=== PATIENT | female | born 1955 | race Caucasian/White ===

== ENCOUNTER 2021-08-23 11:10 | Outpatient (CLI) | payer MEDICARE, MEDICAID, SELFPAY ==
[2021-08-23 12:11] LABS: Albumin Level 4.6 g/dL (3.5-5.1); Anion Gap 9 mmol/L (8-16); Blood Urea Nitrogen 27 mg/dL (7-17); Calcium 9.9 mg/dL (8.4-10.2); Carbon Dioxide 30 mmol/L (22-30); Chloride 102 mmol/L (98-107); Estimated Glomerular Filt Rate 45; Glucose 85 mg/dL (65-110); Phosphorus 3.7 mg/dL (2.5-4.5); Potassium 4.1 mmol/L (3.4-5.0); Sodium 141 mmol/L (137-145)
[2021-08-23 13:27] LABS: Creatinine Urine 116.1 mg/dL
[2021-08-23 14:59] LABS: Total Protein Urine Random < 5 mg/dL; Ur Ttl Prot Creatinine Ratio < 0.04 mg/mg (0-0.20)
== END 2021-08-23 11:11 | disposition home or self-care (01) ==
LOC: ANHLAB 11:15
PROVIDERS: PCP Internal Medicine; Visit Provider Internal Medicine Nephrology
DX: N18.31 Chronic kidney disease, stage 3a (principal)
CPT/HCPCS: 36415; 80069; 82570; 84156

== ENCOUNTER 2022-01-31 18:02 | Observation (INO) | payer MEDICARE, MEDICAID, SELFPAY ==
[2022-01-31] VITALS (18 sets, daily range): BP systolic 92–130; BP diastolic 52–71; PULSE 74–90; RESP 14–18; TEMP 36.6; O2SAT 93–97
--- NOTE | ~2022-01-31 | CT_ITS ---
EXAMINATION: CT BRAIN W/O DATE: 02/01/2022 03:57 INDICATION: Status post fall. Head injury. TECHNIQUE: Computed tomography (CT) of the head was performed without intravenous contrast. The dose- length product was 681.00 mGy-cm. Automated exposure control and iterative reconstruction technique w ere employed. COMPARISON: No prior studies for comparison. FINDINGS: Normal brain parenchymal volume for age. Normal xavier-white differentiation. No acute intrac ranial hemorrhage, infarction, mass or mass effect. There are scattered mild periventricular and subc ortical white matter changes, most likely related to small vessel ischemic disease (microangiopathy). No ventriculomegaly or midline shift. Midline sagittal images demonstrate a normal corpus callosum, c raniovertebral junction and sella turcica. Basilar cisterns are patent. Paranasal sinuses and mastoids are pneumatized. No depressed skull fractures. There is rightward nasa l septal deviation. IMPRESSION: 1. No acute intracranial abnormality. Reviewed, dictated and finalized at location A.
--- NOTE | ~2022-01-31 | CT_ITS ---
EXAMINATION: CT abdomen pelvis wo con EXAM DATE: 01/31/2022 19:39 INDICATION: Diffuse abdominal pain. TECHNIQUE: Spiral CT of the abdomen and pelvis was performed without contrast. Axial, coronal and s agittal images of the abdomen and pelvis were reviewed. The dose-length product (DLP) for this exami nation was 1042.76 mGy-cm. The exposure was tailored according to patient size (auto mA exposure con trol), and iterative reconstruction (ASIR) was used as additional dose reduction technique. There is no prior study for comparison. FINDINGS: The liver, spleen, adrenal glands and pancreas are unremarkable. Gallbladder is unremarkab le. No biliary obstruction. There is no nephrolithiasis or hydronephrosis. The uterus is not iden tified and has likely been surgically resected. The bladder is unremarkable. There is no retroperit moon or pelvic lymphadenopathy. There is mild scattered arteriosclerotic disease. The appendix is normal. The stomach and small bowel are unremarkable. There is mild scattered coloni c diverticulosis. There is no adjacent inflammatory change to suggest diverticulitis. There is expec hayley amount of colonic stool. No free intraperitoneal gas. The heart is normal in size. There are no pericardial or pleural effusions. The lung bases are unremarkable. T10, L2 hemangiomas. IMPRESSION: 1. No acute intra-abdominal findings. 2. Mild scattered colonic diverticulosis. Reviewed, dictated and finalized at location G.
--- NOTE | ~2022-01-31 | CT_ITS ---
EXAMINATION: CT cervical spine wo con DATE: 02/01/2022 05:56 INDICATION: Neck pain after fall TECHNIQUE: Computed tomography (CT) of the cervical spine was performed without intravenous contrast. The dose-length product was 415 mGy-cm. Automated exposure control and iterative reconstruction tech nique were employed. COMPARISON: None FINDINGS: There is degenerative disc disease at C5-6 and C6-7. No acute fracture, subluxation or disl ocation. Vertebral body heights are maintained. Lung apices are normal. Craniovertebral junction is n ormal. Odontoid process is normal. Skull base within normal limits. No significant paraspinal soft ti ssue abnormality. IMPRESSION: 1. No acute abnormality of the cervical spine. Reviewed, dictated and finalized at location A.
[2022-01-31 18:35] LABS: Basophils Percent Auto 0.5 % (0.2-1.2); Eosinophils Absolute Auto 0.1 K/mm3 (0-0.3); Hematocrit 43.7 % (37.0-47.0); Hemoglobin 14.1 g/dL (12.0-15.0); Immature Granulocyte Absolute 0.02 K/mm3 (0.00-0.031); Immature Granulocyte Percent A 0.3 % (0-0.5); Lymphocytes Absolute Auto 1.59 K/mm3 (0.9-3.2); Lymphocytes Percent Auto 24.5 % (18.3-44.2); Mean Corpuscular HGB Conc 32.3 g/dl (32-36); Mean Corpuscular Hemoglobin 28.3 pg (26-34); Mean Corpuscular Volume 87.6 fl (80-100); Mean Platelet Volume 10.9 fl (7.4-10.4); Monocytes Absolute Auto 1.2 K/mm3 (0.1-0.6); Monocytes Percent Auto 18.1 % (2.6-8.5); Neutrophils Absolute Auto 3.5 K/mm3 (1.3-6.7); Neutrophils Percent Auto 54.6 % (45.5-73.1); Platelet Count Result 359 k/mm3 (150-375); Red Blood Count 4.99 M/mm3 (4.2-5.4); Red Cell Distribution Width 13.4 % (11.5-14.5); White Blood Count 6.5 K/mm3 (4.5-10.0)
[2022-01-31 18:45] LABS: Alanine Aminotransferase 32 U/L (4-35); Albumin Level 4.5 g/dL (3.5-5.1); Alkaline Phosphatase 53 U/L (38-126); Anion Gap 13 mmol/L (8-16); Aspartate Amino Transferase 59 U/L (14-36); Bilirubin,Total 0.5 mg/dL (0.2-1.3); Blood Urea Nitrogen 45 mg/dL (7-17); Calcium 8.9 mg/dL (8.4-10.2); Carbon Dioxide 25 mmol/L (22-30); Chloride 96 mmol/L (98-107); Estimated Glomerular Filt Rate 11; Glucose 116 mg/dL (65-110); Lipase 97 U/L (23-300); Potassium 3.9 mmol/L (3.4-5.0); Sodium 134 mmol/L (137-145)
--- NOTE | 2022-01-31 19:10 | PC.NURSE ---
Assuming care of pt.
--- NOTE | 2022-01-31 19:25 | ED.GENADULT ---
HPI - General Adult General Chief complaint: Nausea/Vomiting/Diarrhea Stated complaint: n/v/d Time Seen by Provider: 01/31/22 18:47 Source: patient and family Mode of arrival: ambulatory Limitations: no limitations History of Present Illness HPI narrative: Patient is 66 years old white female presents with nausea, vomiting, diarrhea and diffuse abdominal cramps, shaking, dizzy, hot flashes for the last 5 days. History of diabetes, hypertension, hyperlipidemia, asthma, stage III kidney failure, DNR, ovarian cyst surgery. Quit smoking 4 months ago, does not drink or uses drugs. Patient denies any fever, chest pain, shortness of breath, back pain, headache. Patient reports vomiting on average 3 episodes a day, diarrhea is all day long for the last 5 days Of watery stool. Related Data Home Medications Medication Instructions Recorded Confirmed atenolol 50 mg PO DAILY 01/31/22 atorvastatin 40 mg PO HS 01/31/22 carvedilol 12.5 mg PO BID 01/31/22 chlorthalidone 25 mg PO DAILY 01/31/22 ciprofloxacin HCl [Cipro] 500 mg PO Q12H 01/31/22 duloxetine 60 mg PO [id number] 01/31/22 fenofibrate 160 mg PO DAILY 01/31/22 furosemide [Lasix] 40 mg PO DAILY 01/31/22 lisinopril 20 mg PO DAILY 01/31/22 metformin 500 mg PO DAILY 01/31/22 omeprazole 20 mg PO DAILY 01/31/22 tizanidine 2 mg PO TID 01/31/22 Allergies Allergy/AdvReac Type Severity Reaction Status Date / Time No Known Allergies Allergy Verified 01/31/22 18:58 Review of Systems Review of Systems: CONSTITUTIONAL: Denies fever, chills, or sweats. EYES: Denies visual changes, redness, or discharge. ENT: Denies rhinorrhea, congestion, sore throat, or otalgia. CARDIOVASCULAR: Denies chest pain, palpitations, or edema. RESPIRATORY: Denies cough or dyspnea. GASTROINTESTINAL: Denies abdominal pain, nausea, vomiting, or diarrhea. GENITOURINARY: Denies dysuria or hematuria. SKIN: Denies rash or itching. MUSCULOSKELETAL: Denies back pain, joint pain, or myalgia. NEUROLOGIC: Denies headache, numbness, or weakness. PSYCHIATRIC: Denies anxiety or depression. Exam Narrative: General appearance: Well-developed, well-nourished Skin: Normal color Head: Normocephalic, nontraumatic Eyes: Clear conjunctiva ENT: Oropharynx normal, ears normal, nose normal Neck: Supple, nontender Chest and respiratory: Airway patent, no respiratory distress, no accessory muscle use Heart: Regular rate/rhythm Abdomen: Soft, diffuse tenderness, no guarding or rebound, no organomegaly, normal bowel sounds Vascular: Normal peripheral pulses, normal capillary refill. Musculoskeletal: Normal range of motion, nontender back Neurologic: Alert and oriented ?3, EQUIPMENT HIRE MANAGER is normal as tested, no gross motor deficit Course Vital Signs Vital signs: Vital Signs Temperature 36.6 C 01/31/22 18:10 Pulse Rate 90 01/31/22 18:10 Respiratory Rate 14 01/31/22 18:10 Blood Pressure 109/66 01/31/22 18:10 Pulse Oximetry 97 01/31/22 18:10 Temperature 36.6 C 01/31/22 18:10 Pulse Rate 75 01/31/22 21:04 Respiratory Rate 18 01/31/22 19:31 Blood Pressure 108/59 L 01/31/22 21:04 Pulse Oximetry 96 01/31/22 19:31 Medical Decision Making Vital Signs Vital Signs: Vital Signs Temperature 36.6 C 01/31/22 18:10 Pulse Rate 90 01/31/22 18:10 Respiratory Rate 14 01/31/22 18:10 Blood Pressure 109/66 01/31/22 18:10 Pulse Oximetry 97 01/31/22 18:10 Temperature 36.6 C 01/31/22 18:10 Pulse Rate 75 01/31/22 21:04 Respiratory Rate 18 01/31/22 19:31 Blood Pressure 108/59 L 01/31/22 21:04 Pulse Oximetry 96 01/31/22 19:31 Lab Data Result diagrams: 01/31/22 18:17 01/31/22 18:17
[2022-01-31] MEDS: ONDANSETRON INJ 4 MG/2 ML VIAL 8 MG IV PUSH (19:47)
[2022-01-31] MEDS: MORPHINE SULFATE (*CRX) 4 MG/ML INJ IV PUSH (19:47)
[2022-01-31] MEDS: SODIUM CHLORIDE 0.9% IV 1,000 ML 999 ML IV CONT ×2 (19:47→21:04)
[2022-01-31 22:04] LABS: SARS-CoV-2 RNA PCR Negative
[2022-01-31 22:52] LABS: Add Urine Microscopic? YES; Appearance Urine Cloudy (Clear); Bacteria Urine Trace /hpf; Bilirubin Urine Negative (Negative); Blood Urine 1+ (Negative); Color Urine Yellow (Yellow); Glucose Urine UA Negative (Negative); Ketones Urine Negative (Negative); Leukocyte Esterase Ur Negative LEU/UL (Negative); Mucus Urine Rare /lpf; Nitrate Urine Negative (Negative); Protein Urine Negative (Negative); RBC Urine 0-2 /hpf (0-2); Specific Grav Ur 1.008 (1.001-1.035); Squamous Epithelial Cell Urine Few /hpf (Few); Urobilinogen Urine Negative mg/dL (<2.0); WBC Urine 0-3 /hpf
[2022-01-31] MEDS: SODIUM CHLORIDE 0.9% IV 1,000 ML 150 ML IV CONT (23:00)
[2022-01-31 23:40] LABS: Glucose Point of Care 89 mg/dl (65-105)
[2022-02-01] VITALS (9 sets, daily range): BP systolic 98–148; BP diastolic 48–86; PULSE 70–93; RESP 16–20; TEMP 35.7–36.4; O2SAT 92–98; BMI 35.5
--- NOTE | 2022-02-01 00:40 | ADMGEN ---
This patient, Madeline Puentes, was admitted to [facility] Surg Room 321-02. Patient/family oriented to hospital policies and general routines including ID bracelet, bed and alarms, visiting hours, pain management, procedures, bathroom and other care routines, personal items, smoking policy, room service/diet, and visiting hours. Information on how to activate the Rapid Response Team has been discussed. Patient/Family are encouraged to report perceived risks to care and to ask questions if they do not understand what they are told or what they should do.
--- NOTE | 2022-02-01 01:38 | PM.IMHP ---
H&P: HPI History of Present Illness Date/Time: 02/01/22 01:38 Chief Complaint: Nausea vomiting diarrhea Narrative: this is a 66-year-old female who presents to the ED with ongoing nausea vomiting and diarrhea over the past 5 days. She has underlying history of diabetes, hypertension, hyperlipidemia, asthma, stage 3 kidney disease. He denies any recent antibiotic use. The patient reports average 3 episodes per day loose watery stool over the past 5 days. There is ongoing nausea and from lying in her abdomen since then. She denies any sick contacts or any new unusual food intake recently. She has not been out of the country recently as well. She denies any blood in her stool. She states and he thinks that she eats she had to run to the bathroom after that. She denies any previous history of diarrheal illness in the past. No fever chills. No shortness of breath or chest pain. She was noted to have acute renal failure with creatinine of 4 on evaluation and hence getting admitted for further evaluation and management. She was also had borderline blood pressure which improved after IV hydration. She states to me that she is already feeling a little better. She has not had any bowel movement since he has been to the hospital. Review of Systems Review of Systems: - CONSTITUTIONAL: Denies weight loss, fever and chills. - HEENT: Denies changes in vision and hearing - RESPIRATORY: Denies SOB and cough. - CV: Denies palpitations and CP. - GI: Reports abdominal pain, nausea, vomiting and diarrhea. - : Denies dysuria and urinary frequency. - MSK: Denies myalgia and joint pain. - SKIN: Denies rash and pruritus. - NEUROLOGICAL: Denies headache and syncope. - PSYCHIATRIC: Denies recent changes in mood. Denies anxiety and depression. All systems reviewed & are unremarkable except as noted in HPI and below Constitutional: Constitutional: Reports fatigue and Reports weakness Neurologic: Reports weakness Endocrine: Endocrine: Reports fatigue PMFSH Social History Social History Smoking status: Former smoker Tobacco type: cigarettes Second hand tobacco smoke exposure: No Alcohol intake: never Substance use: never Spiritual care concerns: No Meds Home Medications and Allergies Home Medications Medication Instructions Recorded Confirmed Type atenolol 50 mg PO DAILY 01/31/22 History atorvastatin 40 mg PO HS 01/31/22 History carvedilol 12.5 mg PO BID 01/31/22 History chlorthalidone 25 mg PO DAILY 01/31/22 History duloxetine 60 mg PO [id number] 01/31/22 History fenofibrate 160 mg PO DAILY 01/31/22 History furosemide [Lasix] 40 mg PO DAILY 01/31/22 History lisinopril 20 mg PO DAILY 01/31/22 History metformin 500 mg PO DAILY 01/31/22 History omeprazole 20 mg PO DAILY 01/31/22 History tizanidine 2 mg PO TID 01/31/22 History Allergies Allergy/AdvReac Type Severity Reaction Status Date / Time No Known Allergies Allergy Verified 02/01/22 00:47 Vital Signs Vital Signs - 24 hr 01/31/22 18:10 01/31/22 18:49 01/31/22 18:51 Temperature 97.9 F Pulse Rate 90 90 Respiratory Rate 14 14 Blood Pressure 109/66 92/68 L Pulse Oximetry 97 95 01/31/22 18:56 01/31/22 19:31 01/31/22 20:06 Temperature Pulse Rate 85 87 Respiratory Rate 16 18 Blood Pressure 92/68 L 130/71 Pulse Oximetry 96 93 01/31/22 20:08 01/31/22 20:15 01/31/22 20:17 Temperature Pulse Rate Respiratory Rate Blood Pressure 119/54 L 103/63 Pulse Oximetry 96 94 94 01/31/22 20:30 01/31/22 20:31 01/31/22 21:00 Temperature Pulse Rate 78 Respiratory Rate Blood Pressure 115/54 L 102/52 L Pulse Oximetry 93 93 01/31/22 21:02 01/31/22 21:04 01/31/22 21:29 Temperature Pulse Rate 74 75 Respiratory Rate Blood Pressure 103/57 L 108/59 L Pulse Oximetry 96 01/31/22 22:22 01/31/22 22:30 01/31/22 23:10 Temperature P
[2022-02-01 02:38] LABS: Creatine Kinase 119 U/L (30-135); Lactic Acid Reflex 0.5 mmol/L (0.7-2.1)
[2022-02-01 06:48] LABS: Anion Gap 8 mmol/L (8-16); Blood Urea Nitrogen 41 mg/dL (7-17); Calcium 8.1 mg/dL (8.4-10.2); Carbon Dioxide 24 mmol/L (22-30); Chloride 103 mmol/L (98-107); Estimated CRCL calculation 20 ml/min; Estimated Glomerular Filt Rate 18; Glucose 84 mg/dL (65-110); Potassium 3.3 mmol/L (3.4-5.0); Sodium 135 mmol/L (137-145)
[2022-02-01 07:58] LABS: Glucose Point of Care 87 mg/dl (65-105)
[2022-02-01] MEDS: SODIUM CHLORIDE 0.9% IV 1,000 ML 150 ML IV CONT ×2 (08:06→14:12)
[2022-02-01] MEDS: FENOFIBRATE 160 MG TABLET PO (08:41)
[2022-02-01] MEDS: carvediloL 12.5 MG TABLET PO (08:41)
[2022-02-01] MEDS: TIZANIDINE HCL 2 MG TABLET PO (08:41)
[2022-02-01] MEDS: PANTOPRAZOLE 40 MG TABLET PO (08:41)
[2022-02-01] MEDS: atenoloL 50 MG TABLET PO (08:42)
[2022-02-01] MEDS: HEPARIN SODIUM 5,000 UNITS/ML VIAL 5000 UNITS SUB-Q ×3 (08:42→22:25)
--- NOTE | 2022-02-01 11:07 | PCCCNOTE ---
On 02/01/22, the student, [Twyla West ], provided care and [email or web address]. I have reviewed the student's documentation and agree with the findings.
[2022-02-01 11:25] LABS: Glucose Point of Care 100 mg/dl (65-105)
[2022-02-01] MEDS: SODIUM CHLORIDE 0.9% IV 1,000 ML 999 ML IV CONT (11:35)
--- NOTE | 2022-02-01 12:46 | PM.IMPN ---
Progress Note: A&P Assessment and Plan (1) Gastroenteritis: Code(s): K52.9 - Noninfective gastroenteritis and colitis, unspecified Status: Acute (2) Acute dehydration: Code(s): E86.0 - Dehydration Status: Acute (3) RAVEN (acute kidney injury): Code(s): N17.9 - Acute kidney failure, unspecified Status: Acute (4) Hypertension: Code(s): I10 - Essential (primary) hypertension Status: Acute (5) Hyperlipidemia: Code(s): E78.5 - Hyperlipidemia, unspecified Status: Acute (6) Diabetes mellitus type 2 with complications: Code(s): E11.8 - Type 2 diabetes mellitus with unspecified complications Status: Acute (7) Chronic kidney disease, stage 3: Code(s): N18.30 - Chronic kidney disease, stage 3 unspecified Status: Acute (8) Asthma: Code(s): J45.909 - Unspecified asthma, uncomplicated Status: Acute Additional Plan acute gastroenteritis with nausea vomiting diarrhea and abdominal pain. CT abdomen is negative lipase is normal. COVID test negative. Stool studies. Likely viral will continue with IV fluid hydration and supportive treatment for now. No antibiotics currently WBC count is normal Acute dehydration with RAVEN and CKD stage 3 creatinine of 2 4. Continue IV hydration aggressively recheck levels in the morning Hypertension blood pressure low is will hold diuretics and her blood pressure medication. Diabetes mellitus type 2 hold metformin start SSI Accu-Cheks monitoring Asthma continue home medication Hyperlipidemia check CK level continue atorvastatin under CK level is elevated GERD on PPI will continue DVT prophylaxis placed on heparin subQ Code status do not resuscitate Anticipate more than 2 midnight. Admit inpatient 02/01/22: Pt.s RAVEN is improving with IVF, Creatinine decreased from 4.0 to 2.7 today. Stool studies still pending. WBC remains normal without any rise. Continuing to hold BP medication since she had hypotension. Stool studies pending, tolerating a clear liquid diet without difficulties, N/V/D, will advance to heart healthy. Will continue to monitor VS and labs. Subjective Date/time seen: 02/01/22 0850 This pt. was examined at the bedside in interval assessment today. She is noted to have no current complaints of N/V/D/CP/Dyspnea and She did reportedly fall out of bed last evening and had CT of head and C-spine which were both negative. She has been given IVF for correction of her RAVEN, and her renal function is improving. She has no current complaints, of abdominal pain, N/V and she has not had any diarrhea since being here. She has tolerated a clear liquid diet without difficulty, so her diet is being changed at this time to a heart healthy diet. Will add SSI. She did become hypotensive today, 70s/40s without any symptoms and she does not appear to have any acute infection. This was resolved with increased fluid bolus. Review of Systems Review of Systems: All systems reviewed & are unremarkable except as noted in HPI and below Exam Narrative: General appearance: Well-developed, well-nourished Skin: Normal color no rash Head: Normocephalic, nontraumatic Eyes: Clear conjunctiva ENT: Oropharynx normal, ears normal, nose normal Neck: Supple, nontender Chest and respiratory: Airway patent, no respiratory distress, no accessory muscle use Heart: Regular rate/rhythm Abdomen: Soft, diffuse tenderness, no guarding or rebound, no organomegaly, normal bowel sounds Vascular: Normal peripheral pulses, normal capillary refill. Musculoskeletal: Normal range of motion, nontender back Neurologic: Alert and oriented ?3, LAND INSPECTOR is normal as tested, no gross motor deficit
--- NOTE | 2022-02-01 13:30 | PC.NURSE ---
orthostatic bp performed this shift r.t soft bp, supine 71/46, sitting 116/86, and 99/64.
[2022-02-01 13:39] LABS: Hemoglobin A1C 5.7 % (<5.7)
--- NOTE | 2022-02-01 14:11 | PC.NURSE ---
holding cardveilol and tizanidine r/t soft bp, provider Dai sanon.
--- NOTE | 2022-02-01 15:36 | PC.NURSE ---
No diarrhea this shift, no stool specimen available for collection.
[2022-02-01 16:38] LABS: Glucose Point of Care 99 mg/dl (65-105)
[2022-02-01] MEDS: DULoxetine HCL 60 MG CAPSULE.DR PO (17:06)
[2022-02-01] MEDS: ATORVASTATIN 40 MG TABLET PO (20:22)
[2022-02-01 20:32] LABS: Glucose Point of Care 111 mg/dl (65-105)
[2022-02-01] MEDS: HYDROcodone/acetaminophen (*CRX) 5-325 MG TABLET 1 TAB PO (22:22)
[2022-02-02] MEDS: SODIUM CHLORIDE 0.9% IV 1,000 ML 150 ML IV CONT ×2 (01:15→09:44)
[2022-02-02] MEDS: HYDROcodone/acetaminophen (*CRX) 5-325 MG TABLET 1 TAB PO ×2 (04:32→12:14)
[2022-02-02] MEDS: HEPARIN SODIUM 5,000 UNITS/ML VIAL 5000 UNITS SUB-Q ×2 (05:35→13:33)
[2022-02-02 05:37] VITALS: BP 122/52; PULSE 85; RESP 16; TEMP 36.1; O2SAT 94
[2022-02-02 06:23] LABS: Basophils Percent Auto 0.8 % (0.2-1.2); Eosinophils Absolute Auto 0.2 K/mm3 (0-0.3); Eosinophils Percent Auto 4.3 % (0-4.4); Hematocrit 39.4 % (37.0-47.0); Hemoglobin 11.7 g/dL (12.0-15.0); Immature Granulocyte Absolute 0.01 K/mm3 (0.00-0.031); Immature Granulocyte Percent A 0.2 % (0-0.5); Lymphocytes Absolute Auto 2.46 K/mm3 (0.9-3.2); Lymphocytes Percent Auto 47.6 % (18.3-44.2); Mean Corpuscular HGB Conc 29.7 g/dl (32-36); Mean Corpuscular Hemoglobin 28.3 pg (26-34); Mean Corpuscular Volume 95.4 fl (80-100); Mean Platelet Volume 11.6 fl (7.4-10.4); Monocytes Absolute Auto 0.4 K/mm3 (0.1-0.6); Monocytes Percent Auto 8.1 % (2.6-8.5); Platelet Count Result 235 k/mm3 (150-375); Red Blood Count 4.13 M/mm3 (4.2-5.4); Red Cell Distribution Width 13.6 % (11.5-14.5); White Blood Count 5.2 K/mm3 (4.5-10.0)
[2022-02-02 08:02] LABS: Glucose Point of Care 77 mg/dl (65-105)
[2022-02-02 08:25] VITALS: O2SAT 93
[2022-02-02] MEDS: TIZANIDINE HCL 2 MG TABLET PO ×2 (08:37→13:31)
[2022-02-02 08:38] VITALS: PULSE 70
[2022-02-02] MEDS: atenoloL 50 MG TABLET PO (08:38)
[2022-02-02] MEDS: PANTOPRAZOLE 40 MG TABLET PO (08:38)
[2022-02-02 08:39] VITALS: PULSE 70
[2022-02-02] MEDS: FENOFIBRATE 160 MG TABLET PO (08:39)
[2022-02-02] MEDS: carvediloL 12.5 MG TABLET PO (08:39)
[2022-02-02 08:46] LABS: Anion Gap 6 mmol/L (8-16); Blood Urea Nitrogen 24 mg/dL (7-17); Calcium 8.1 mg/dL (8.4-10.2); Carbon Dioxide 25 mmol/L (22-30); Chloride 109 mmol/L (98-107); Estimated CRCL calculation 33 ml/min; Estimated Glomerular Filt Rate 32; Glucose 81 mg/dL (65-110); Potassium 3.9 mmol/L (3.4-5.0); Sodium 140 mmol/L (137-145)
[2022-02-02 11:23] LABS: Glucose Point of Care 100 mg/dl (65-105)
--- NOTE | 2022-02-02 14:21 | PM.DS ---
DS: Admitting Diagnosis Discharge Date 02/02/2022 Admitting Diagnosis gastroenteritis DS: Discharge Diagnosis Discharge Diagnosis (1) Gastroenteritis: Code(s): K52.9 - Noninfective gastroenteritis and colitis, unspecified Status: Acute Assessment and Plan: Presented with nausea, vomiting, diarrhea, and abdominal cramping ongoing for 5 days. Stool cultures negative CT a/p showed no acute intraabdominal findings Kane to be viral in nature Pt had symptomatic improvement following IV hydration and was able to advance to heart healthy diet (2) Acute dehydration: Code(s): E86.0 - Dehydration Status: Acute Assessment and Plan: Secondary to above Resolved following IV fluid rehydration (3) Acute on chronic kidney failure: Code(s): N17.9 - Acute kidney failure, unspecified; N18.9 - Chronic kidney disease, unspecified Status: Acute Assessment and Plan: Pt with history of CKD stage 3 presented with RAVEN secondary to dehydration Creatinine 4.0 on presentation Renal function returned to baseline with fluids. Creatinine 1.6 at time of discharge Follow up with PCP in 1 week for further monitoring. Chlorthalidone and lisinopril held until follow up (4) Hypertension: Code(s): I10 - Essential (primary) hypertension Status: Acute Assessment and Plan: Blood pressures reviewed and were typically on the lower end, 100-120s systolic. Chlorthalidone and lisinopril held as above Monitor BP at home and follow up with PCP in 1 week (5) Diabetes mellitus type 2 with complications: Code(s): E11.8 - Type 2 diabetes mellitus with unspecified complications Status: Acute Assessment and Plan: A1c is 5.7 Metformin held during admission but resumed on discharge as GFR >30 DS: Summary Hospital Course Hospital Course: Date of admission 01/31/22 Date of discharge: 02/02/2022 Madeline Puentes is a 67-year-old female with history of CKD stage 3, hypertension, hyperlipidemia, asthma, and type 2 diabetes mellitus who presented to the emergency department on 01/31/2022 with complaints of nausea, vomiting, diarrhea, abdominal cramping ongoing for 5 days. On presentation to the ED, her vital signs were stable, she was afebrile, found to have acute kidney injury with creatinine 4.0, and CT of the abdomen/pelvis showed no acute findings. She was admitted to the hospitalist service for further evaluation and management. Please see above for further details. Her symptoms resolved with rehydration and supportive care. She was feeling much improved and requested discharge home. Given her overall improvement, she was determined to no longer require inpatient care and was felt to be stable for discharge. We discussed worrisome signs and symptoms for which to return and she was educated on her medications. She was discharged in hemodynamically stable condition on 02/02/2022. Status at Discharge Functional status at discharge: independent ambulation Overall status at discharge: patient is progressing back to baseline Time Spent with Patient Time attestation: Total time spent providing and/or coordinating discharge services: 40 minutes Time spent: Greater than 30 minutes Exam Narrative: General: obese, well-appearing 66 year-old female, sitting up in bed, comfortable, NARD Neuro: awake, alert and oriented x4, speech clear, no focal neuro deficits noted HEENMT: normocephalic, atraumatic, EOMI, sclerae anicteric, moist oral mucosa Respiratory: clear to auscultation bilaterally, nonlabored breathing Cardio: regular rate, regular rhythm with S1-S2 Abdomen: nondistended, normoactive bowel sounds, soft, nontender to palpation Extremities: no edema, erythema, or tenderness to palpation, DP pulses 2+ bilaterally Skin: no rashes or lesions, warm and dry Psych: appropriate mood and affect, judgment and insight intact DS: Data Data Completed and Pending L
--- NOTE | 2022-02-02 15:04 | PC.NURSE ---
On 02/02/22, the student, [Lilia Huffman ], provided care and completed [facility] documentation on this patient. I have reviewed the student's documentation and agree with the findings.
[2022-02-02 15:05] VITALS: BP 103/61; PULSE 71; RESP 16; TEMP 36.6; O2SAT 98
--- NOTE | 2022-02-07 12:58 | PC.NURSE ---
Michelle, office secretary, called patient about neck brace that got left at discharge. I verified in discharge instructions. Nothing noted about neck brace. Patient would like it to be thrown away.
== END 2022-02-02 15:42 | disposition home or self-care (01) ==
LOC: ANHED 20:59 → ANH3MEDSUR 22:46
PROVIDERS: Nurse Practitioner Adult Health; Admitting Provider Internal Medicine; Emergency Provider Emergency Medicine; Visit Provider Physician Assistant
DX: K52.9 Noninfective gastroenteritis and colitis, unspecified (principal); E86.0 Dehydration; N17.9 Acute kidney failure, unspecified; N18.30 Chronic kidney disease, stage 3 unspecified; I12.9 Hypertensive chronic kidney disease with stage 1 through stage 4 chronic kidney disease, or unspecified chronic kidney disease; E11.22 Type 2 diabetes mellitus with diabetic chronic kidney disease; E78.5 Hyperlipidemia, unspecified; J45.909 Unspecified asthma, uncomplicated; Z20.822 Contact with and (suspected) exposure to COVID-19; Z87.891 Personal history of nicotine dependence
CPT/HCPCS: 36415; 70450; 72125; 74176; 80048; 80053; 81001; 82550; 82948; 83036; 83605; 83690; 85025; 87045; 87427; 89055; 96361; 96372; 96374; 96375; 97161; 97165; 99285; A9270; C9803; G0378; J0131; J1644; J2270; J2405; J7030; L0140; U0003; U0005

== ENCOUNTER 2022-10-25 09:22 | Outpatient (CLI) | payer MEDICARE, MEDICAID, SELFPAY ==
--- NOTE | ~2022-10-25 | MM_ITS ---
EXAMINATION: MM screening [facility] BI w oscar HISTORY: Screening TECHNIQUE: Craniocaudal and mediolateral oblique 3-D tomosynthesis images were obtained and synthetic 2-D images were generated. CAD analysis was submitted and interpreted. COMPARISON: Comparison to multiple prior studies sequentially, with oldest reviewed study dated 08/10. BREAST PARENCHYMAL COMPOSITION: There are scattered areas of fibroglandular density. FINDINGS: The right breast is stable without evidence for malignancy. Stable architectural distortion in the upper outer quadrant of the left breast, consistent with previous lumpectomy. There are a few stable calcifications at the lumpectomy site. No suspicious calcifications, new masses or areas of a rchitectural distortion are identified. IMPRESSION: 1. No mammographic evidence of malignancy. 2. Recommend routine screening mammography in one year. BI-RADS Category 2: Benign finding(s). Reviewed, dictated and finalized at location B. RIAL INSPECTOR
== END 2022-10-25 09:23 | disposition home or self-care (01) ==
LOC: ANHIMG 09:24
PROVIDERS: PCP Internal Medicine; Visit Provider Physician Assistant
DX: Z12.31 Encounter for screening mammogram for malignant neoplasm of breast (principal)
CPT/HCPCS: 77063; 77067

== ENCOUNTER 2023-06-14 11:01 | Outpatient (CLI) | payer MEDICARE, MEDICAID, SELFPAY ==
[2023-06-14 12:44] LABS: Hemoglobin A1C 5.6 % (<5.7)
[2023-06-14 12:46] LABS: Alanine Aminotransferase 28 U/L (6-35); Albumin Level 4.3 g/dL (3.5-5.1); Alkaline Phosphatase 77 U/L (38-126); Anion Gap 5 mmol/L (8-16); Aspartate Amino Transferase 38 U/L (14-36); Bilirubin,Total 0.4 mg/dL (0.2-1.3); Blood Urea Nitrogen 23 mg/dL (7-17); Calcium 9.7 mg/dL (8.4-10.2); Carbon Dioxide 29 mmol/L (22-30); Chloride 103 mmol/L (98-107); Estimated Glomerular Filt Rate 55; Glucose 80 mg/dL (65-110); Potassium 4.6 mmol/L (3.4-5.0); Sodium 137 mmol/L (137-145)
[2023-06-14 12:59] LABS: Free T4 Free Thyroxine 1.07 ng/mL (0.78-2.19)
[2023-06-14 13:29] LABS: Creatinine Urine 71.6 mg/dL; MALB Creatinine Ratio 9.8 mg/g (0-30)
== END 2023-06-14 11:02 | disposition home or self-care (01) ==
LOC: ANHWCLAB 11:07
PROVIDERS: PCP Internal Medicine; Visit Provider Internal Medicine
DX: R63.5 Abnormal weight gain (principal); N18.30 Chronic kidney disease, stage 3 unspecified; E11.8 Type 2 diabetes mellitus with unspecified complications
CPT/HCPCS: 36415; 80053; 82043; 83036; 84439; 84443

== ENCOUNTER 2023-06-17 11:12 | Outpatient (NON) | payer MEDICARE, MEDICAID, SELFPAY ==
[2023-06-27 17:52] LABS: Cortisol, Saliva 0.03 mcg/dL
[2023-06-27 18:10] LABS: Cortisol, Saliva 0.05 mcg/dL
== END 2023-06-17 11:13 | disposition home or self-care (01) ==
PROVIDERS: PCP Internal Medicine; Visit Provider Internal Medicine
DX: R63.5 Abnormal weight gain (principal)
CPT/HCPCS: 82530

== ENCOUNTER 2023-08-29 11:25 | Outpatient (CLI) | payer MEDICARE, MEDICAID, SELFPAY ==
--- NOTE | ~2023-08-29 | MM_ITS ---
EXAMINATION: MM diagnostic [facility] BI w oscar HISTORY: History of left breast cancer status post lumpectomy TECHNIQUE: Additional 3-D tomosynthesis images of the right breast were performed and synthetic 2-D i mages were generated. CAD analysis was submitted and interpreted. COMPARISON: Comparison to multiple prior studies sequentially, with oldest reviewed study dated 08/11. BREAST PARENCHYMAL COMPOSITION: Breast composed of scattered areas of fibroglandular density FINDINGS: The breasts are stable. Stable architectural distortion in the upper outer quadrant of the left breast, consistent with previous lumpectomy site. There are no new masses, calcifications or arc hitectural distortion in either breast to suggest malignancy. IMPRESSION: 1. Stable bilateral mammogram without evidence for malignancy. 2. Routine yearly screening mammogram and regular clinical breast examination are recommended. BI-RADS Category 2: Benign finding(s). Reviewed, dictated and finalized at location A. IMPRESSION: 1. Stable bilateral mammogram without evidence for malignancy. 2. Routine yearly screening mammogram and regular clinical breast examination a re recommended. BI-RADS Category 2: Benign finding(s).
== END 2023-08-29 11:26 | disposition home or self-care (01) ==
LOC: ANHIMG 11:27
PROVIDERS: PCP Internal Medicine; Visit Provider Emergency Medicine
DX: N63.20 Unspecified lump in the left breast, unspecified quadrant (principal); R92.8 Other abnormal and inconclusive findings on diagnostic imaging of breast
CPT/HCPCS: 77062; 77066; G0279

== ENCOUNTER 2025-01-07 13:20 | Outpatient (CLI) | payer MEDICARE, MEDICAID, SELFPAY ==
[2025-01-07 14:23] LABS: Influenza A QL RT-PCR Negative (Negative); Influenza B QL RT-PCR Negative (Negative); RSV RNA, RT-PCR Negative (Negative); SARS-CoV-2 RNA PCR Negative (Negative)
--- OUTSIDE RECORDS SUMMARY | 2025-01-07 15:05 | XMS_ITS | Clinical Summary ---
Author Organization [employer] [facility] [employer] [facility] Address [address] [facility] [address] [place] [address] Phone Care Team Providers Care Litharge Supervisor Name Role Phone Moo Escamilla MD Primary Care Provider Allergies No known active allergies Medications * This document contains information received from the source organization and may not represent a complete record from that organization. aspirin 81 MG chewable tablet Chew 81 mg in the morning. Active atorvastatin (LIPITOR) 40 MG tablet Take 40 mg by mouth in the morning. 9 Active DULoxetine HCl 30 MG Capsule Delayed Release Sprinkle Take 1 capsule by mouth 1 (one) time each day 1 Active fenofibrate (TRIGLIDE) 160 MG tablet Take 160 mg by mouth in the morning. 9 Active HYDROcodone-ac etaminophen (NORCO) 5-325 MG per tablet TAKE ONE TABLET BY MOUTH TWICE DAILY NEEDED FOR PAIN 8 Active lisinopril 20 MG tablet Take 20 mg by mouth 1 (one) time each day Active cyanocobalamin (VITAMIN B-12) 1000 MCG tablet Take 1,000 mcg by mouth in the morning and 1,000 mcg in the evening. Active carvedilol (COREG) 12.5 MG tablet Take 1 tablet (12.5 mg total) by mouth in the morning and 1 tablet (12.5 mg total) in the evening. Take with meals. 180 tablet 1 2 04/01/20 29 Active furosemide (LASIX) 20 MG tablet Take 1 tablet (20 mg total) by mouth 1 (one) time each day 90 tablet 1 2 Active metFORMIN XR (GLUCOPHAGE-XR ) 500 MG 24 hr tablet Take 2 tablets (1,000 mg total) by mouth 1 (one) time each day with dinner 180 tablet 2 04/01/20 29 Active escitalopram (LEXAPRO) 10 MG tablet Take 10 mg by mouth 1 (one) time each day in the morning Active Tirzepatide (Mounjaro) 10 MG/0.5ML solution auto-injector Inject 10 Units under the skin per week Active Cholecalcifero l (Vitamin D3) 50 MCG (1999 UT) tablet TAKE 1 TABLET BY MOUTH 1 TIME EACH DAY 90 tablet 1 5 Active Cholecalcifero l (Vitamin D3) 50 MCG (1999 UT) tablet TAKE 1 TABLET BY MOUTH 1 TIME EACH DAY 90 tablet 1 4 12/23/19 25 Discontinued Active Problems Problem Noted Date Diagnosed Date Vitamin D deficiency 04/01/2024 Chronic kidney disease, stage 2 (mild) 3 Chronic depression 08/01/2022 Hypercalcemia 03/07/2022 Mixed hyperlipidemia 12/07/2021 Type 2 diabetes mellitus without complication Acquired hypothyroidism 05/04/2021 Stage 3a chronic kidney disease 01/21/2021 Obstructive sleep apnea syndrome 09/28/2020 Dyspnea 09/28/2020 Essential hypertension 06/05/2019 Encounters Date Type Department Care Team Description 12/22/2024 Refill [facility], [facility] [address] [phone] Franklin Abreu MD 11/25/2024 11:30 AM HULL GRINDER Office Visit [facility], [facility] [address] [phone] Franklin Abreu MD Stage 3a chronic kidney disease (HCC) (Primary Dx); Essential hypertension; Type 2 diabetes mellitus without complication (HCC); Mixed hyperlipidemia; Chronic depression; Vitamin D deficiency, not otherwise specified; Acquired hypothyroidism 11/25/2024 Refill [place], [facility] [address] [phone] Perla Connelly CMA 11/20/2024 Orders Only [facility], [place] [id number] [facility] [address] [place] [phone] Franklin Abreu MD 11/13/2024 Office Communication [facility], [facility] [address] [place] [address] [address] [place] [address] Franklin Abreu MD from Last 3 Months Immunizations Name Administration Dates Next Due Influenza Split 08/08/2019 Influenza TIV (IM) 07/13/2019 Influenza, Unspecified 09/07/2021,2019,08/08/2019,12/19/2018 ,08/28/2017,08/23/2016,08/31/2015, 4,08/19/2014 Moderna SARS-COV-2 01/25/2021 Pneumococcal Conjugate 13-Valent 09/13/2015 Shingrix 11/26/2020,09/20/2020,08/11/2020 Family History Relation Status Comments Father Mother Social History Tobacco Use Types Packs/Day Years Used Date Smoking Tobacco: Former Cigarettes Smokeless Tobacco: Current Tobacco Cessation:Ready to Q uit: Not Asked; Counseling Given: Not Answered Alcohol Use Standard Drinks/Week Comments Never 0 (1 standard drink = 0.6 oz pur e alcohol) Comments Unknown Sex and Gender Information Value Date Recorded Sex Assigned at Not on file Legal Sex Female 2:54 PM EST Gender Identity Not on file Sexual Orientation Not on file Last Filed Vital Signs Vital Sign Reading Time Taken Comments Blood Pressure 140/80 11/25/2024 11:46 AM HULL GRINDER Pulse 66 11/25/2024 11:46 AM HULL GRINDER Temperature 36.1 C (97 F) 11/25/2024 11:46 AM HULL GRINDER Respiratory Rate 18 11/25/2024 11:46 AM HULL GRINDER Oxygen Saturation 97% 11/25/2024 11:46 AM HULL GRINDER Inhaled Oxygen Concentration - - Weight 74.8 kg (165 lb) 11/25/2024 11:46 AM HULL GRINDER Height 157.5 cm (5' 2 ) 04/01/2024 10:14 AM CDT Body Mass Index 30.18 04/01/2024 10:14 AM CDT Plan of Treatment Upcoming Encounters Date Type Department Care Team (Late st Contact Info) Description 05/26/2025 10:30 AM CDT Office Visit [facility], [facility] [address] [place], [place] [address] [place] [phone] Franklin Abreu MD [address] [place] [address] Health Maintenance Due Date Last Done Comments Breast Cancer Screening 1955 Colorectal Cancer Screening: Annual FOBT 02/06/2004 Colorectal Cancer Screening: Colonoscopy 02/06/2004 Colorectal Cancer Screening: Sigmoidoscopy 02/06/2004 Diabetes: Ophthalmology Exam 12/05/2021 Diabetes: Pedal Pulse Checked 12/05/2021 Diabetes: Sensory Foot Exam 12/05/2021 Diabetes: Visual Foot Exam 12/05/2021 Influenza Vaccine (#1) 2024 2, 09/07/2021, 08/11/2020, Additional history exists Diabetes: Hemoglobin A1C 02/18/2025 025, 09/22/2024, 03/14/2024, Additional history exists Pneumococcal Vaccine: 65+ Years Completed 02/21/2022, 09/13/2015 Hepatitis B Vaccine Aged Out No longe r eligible based on patient's age to complete this topic Procedures Procedure Name Priority Date/Time Associated Diagnosis Comments SPECIMEN STATUS REPORT Routine 10:37 AM HULL GRINDER PTH, INTACT Routine 11/20/2024 10:37 AM HULL GRINDER PHOSPHATE ( PHOSPHORUS) Routine 11/20/2024 10:37 AM HULL GRINDER TSH REFLEX TO T4F (HC) Routine 10:37 AM HULL GRINDER VITAMIN D 25 HYDROXY Routine 11/20/2024 10:37 AM HULL GRINDER HEMOGLOBIN A1C Routine 11/20/2024 10:37 AM HULL GRINDER PROTEIN / CREATININE RATIO, URINE Routine 11/20/2024 10:37 AM HULL GRINDER LIPID PANEL Routine 11/20/2024 10:37 AM HULL GRINDER URINALYSIS WITH MICROSCOPIC Routine 11/20/2024 10:37 AM HULL GRINDER COMPREHENSIVE METABOLIC PANEL Routine 11/20/2024 10:37 AM HULL GRINDER CBC DIFF AMBIGUOUS DEFAULT - DO NOT USE Routine 11/20/2024 10:37 AM HULL GRINDER MICROSCOPIC EXAMINATION - DO NOT USE Routine 11/20/2024 10:37 AM HULL GRINDER from Last 3 Months Results * TSH reflex to T4F (11/20/2024 10:37 AM HULL GRINDER) TSH 1.410 0.450 - 4.500 uIU/mL [facility] 11/20/2024 10:3 7 AM HULL GRINDER 11/19/2024 11:00 PM HULL GRINDER us Franklin Abreu MD LAB [id number] NSOLICITED RESULTS Final Result [facility] [address] [place] [address] * SPECIMEN STATUS REPORT (11/20/2024 10:37 AM HULL GRINDER) Specimen Status Comment [facility] Comment: Ambig Abbrev CMP14 Default Ambig Abbrev CMP14 Default A hand-written panel/profile was received from your office. In accordance with the [facility] Ambiguous Test Code Policy dated May 2003, we have completed your order by using the closest currently or formerly recognized AMA panel. We have assigned Comprehensive Metabolic Panel (14), Test Code #024682 to this request. If this is not the testing you wished to receive on this specimen, please contact the [facility] Client Inquiry/Technical Services Department to clarify the test order. We appreciate your business. Ambig Abbrev LP Default Ambig Abbrev LP Default A hand-written panel/profile was received from your office. In accordance with the [facility] Ambiguous Test Code Policy dated May 2003, we have completed your order by using the closest currently or formerly recognized AMA panel. We have assigned Lipid Panel, Test Code #386065 to this request. If this is not the testing you wished to receive on this specimen, please contact the [facility] Client Inquiry/Technical Services Department to clarify the test order. We appreciate your business. 11/20/2024 10:3 7 AM HULL GRINDER 11/19/2024 11:00 PM HULL GRINDER Franklin Abreu MD LAB BLOOD ORDERABLES Final R esult Performing Organization Address City/[facility] Co de Phone Number [facility] [address] [place] [address] * Microscopic Examination (11/20/2024 10:37 AM HULL GRINDER) WBC, Urine 0-5 0 - 5 /hpf [facility] RBC, Urine 0-2 0 - 2 /hpf [facility] Squamous Epithelial, Urine 0-10 0 - 10 /hpf [facility] Casts None seen None seen /lpf [facility] Bacteria, Urine None seen None seen/Few [facility] [place] 11/20/2024 10:3 7 AM HULL GRINDER 11/19/2024 11:00 PM HULL GRINDER Franklin Abreu MD LAB MICROBIOLOGY - GENERAL O RDERABLES Final Result Performing Organization Address City/[facility] Co de Phone Number [facility] [address] [place] [address] * (ABNORMAL) CBC Diff Ambiguous Default (11/20/2024 10:37 AM HULL GRINDER) WBC 5.7 3.4 - 10.8 x10E3/uL [facility] RBC 4.82 3.77 - 5.28 x10E6/uL [facility] Hemoglobin 12.9 11.1 - 15.9 g/dL [facility] Hematocrit 41.6 34.0 - 46.6 % [facility] MCV 86 79 - 97 fL [facility] MCH 26.8 26.6 - 33.0 pg [facility] MCHC 31.0(L) 31.5 - 35.7 g/dL [facility] RDW 13.7 11.7 - 15.4 % [facility] Platelets 312 150 - 450 x10E3/uL [facility] Neutrophils Relative 59 Not Estab. % [facility] Lymphocytes Relative 27 Not Estab. % [facility] Monocytes 8 Not Estab. % [facility] Eosinophils Relative 5 Not Estab. % [facility] Basophils Relative 1 Not Estab. % [facility] Neutrophils Absolute 3.4 1.4 - 7.0 x10E3/uL [facility] Lymphocytes Absolute 1.5 0.7 - 3.1 x10E3/uL [facility] Monocytes Absolute 0.5 0.1 - 0.9 x10E3/uL [facility] Eosinophils Absolute 0.3 0.0 - 0.4 x10E3/uL [facility] Basophils Absolute 0.1 0.0 - 0.2 x10E3/uL [facility] Immature Granulocytes 0 Not Estab. % [facility] Immature Grans (Absolute) 0.0 0.0 - 0.1 x10E3/uL [facility] Comment: A hand-written panel/profile was received from your office. In accordance with the [facility] Ambiguous Test Code Policy dated May 2003, we have assigned CBC with Differential/Platelet, Test Code #[id number] to this request. If this is not the testing you wished to receive on this specimen, please contact the [facility] Client Inquiry/ Technical Services Department to clarify the test order. We appreciate your business. 11/20/2024 10:3 7 AM HULL GRINDER 11/19/2024 11:00 PM HULL GRINDER Franklin Abreu MD LAB BLOOD ORDERABLES Final R esult Performing Organization Address [facility] de Phone Number [facility] [address] [place] [address] * Protein, Total, Random Urine w/Creatinine (Protein/Creat Ratio) (11/20/2024 10:37 AM HULL GRINDER) Creatinine, Ur 64.1 Not Estab. mg/dL [facility] Protein, Ur 8.9 Not Estab. mg/dL [facility] Urine Protein/Creatin ine Ratio 139 0 - 200 mg/g creat [facility] 11/20/2024 10:3 7 AM HULL GRINDER 11/19/2024 11:00 PM HULL GRINDER Franklin Abreu MD LAB URINE ORDERABLES Final R esult Performing Organization Address [facility] de Phone Number [facility] [address] [place] [address] * Vitamin D 25 Hydroxy (11/20/2024 10:37 AM HULL GRINDER) Vitamin D, 25-OH, Total 40.3 30.0 - 100.0 ng/mL [facility] Comment: Vitamin D deficiency has been defined by the [place] of Medicine and an Endocrine Society practice guideline as a level of serum 25-OH vitamin D less than 20 ng/mL (1,2). The Endocrine Society went on to further define vitamin D insufficiency as a level between 21 and 29 ng/mL (2). 1. IOM ([place] of Medicine). 2010. Dietary reference intakes for calcium and D. [place]: The National Academies Press. 2. Johnson MF, Justus REDMAN, Sofie BIGGS, et al. Evaluation, treatment, and prevention of vitamin D deficiency: an Endocrine Society clinical practice guideline. JCEM. 2010; 96(7):1911-30. 11/20/2024 10:3 7 AM HULL GRINDER 11/19/2024 11:00 PM HULL GRINDER us Franklin Abreu MD LAB BLOOD ORDERABLES Final R esult [facility] [address] [place] [address] * (ABNORMAL) Urinalysis with microscopic (11/20/2024 10:37 AM HULL GRINDER) Specific [place], Urine 1.016 1.005 - 1.030 [facility] pH Urine 6.0 5.0 - 7.5 [facility] Color, Urine Yellow Yellow [facility] Appearance Urine Clear Clear [facility] WBC Esterase Urine 2+(A) Negative [facility] Protein, Ur Negative Negative/Tra ce [facility] Glucose, Ur Negative Negative [facility] Ketones, Urine Negative Negative [facility] Blood Urine Negative Negative [facility] Bilirubin Urine Negative Negative [facility] Urobilinogen Urine 0.2 0.2 - 1.0 mg/dL [facility] Nitrite, Urine Negative Negative [facility] Microscopic Examination See below: [facility] Comment:Microscopic was ricarda cated and was performed. 11/20/2024 10:3 7 AM HULL GRINDER 11/19/2024 11:00 PM HULL GRINDER Franklin Abreu MD LAB URINE ORDERABLES Final R esult [facility] [address] [place] [address] * Phosphorus (11/20/2024 10:37 AM HULL GRINDER) Phosphorus 3.0 3.0 - 4.3 mg/dL [facility] 11/20/2024 10:3 7 AM HULL GRINDER 11/19/2024 11:00 PM HULL GRINDER Franklin Abreu MD LAB BLOOD ORDERABLES Final R esult Performing Organization Address City/[facility]/ZIP Co de Phone Number [facility] [address] [place] [address] * PTH, Intact (11/20/2024 10:37 AM HULL GRINDER) PTH 18 15 - 65 pg/mL [facility] 11/20/2024 10:3 7 AM HULL GRINDER 11/19/2024 11:00 PM HULL GRINDER Franklin Abreu MD LAB BLOOD ORDERABLES Final R esult Performing Organization Address [facility] Co de Phone Number [facility] [address] [place] [address] * Hemoglobin A1c (11/20/2024 10:37 AM HULL GRINDER) Hemoglobin A1C 5.4 4.8 - 5.6 % [facility] Comment: Prediabetes: 5.7 - 6.4 Diabetes: >6.4 Glycemic control for adults with diabetes: <7.0 11/20/2024 10:3 7 AM HULL GRINDER 11/19/2024 11:00 PM HULL GRINDER Franklin Abreu MD LAB BLOOD ORDERABLES Final R esult Performing Organization Address [facility] Co de Phone Number [facility] [address] [place] [address] * Lipid panel (11/20/2024 10:37 AM HULL GRINDER) Cholesterol 109 100 - 199 mg/dL [facility] Triglycerides 94 0 - 149 mg/dL [facility] HDL 51 >39 mg/dL [facility] VLDL Cholesterol Gonsalo 18 5 - 40 mg/dL [facility] LDL Calculated 40 0 - 99 mg/dL [facility] 11/20/2024 10:3 7 AM HULL GRINDER 11/19/2024 11:00 PM HULL GRINDER Franklin Abreu MD LAB BLOOD ORDERABLES Final R esult Performing Organization Address [facility] Co de Phone Number [facility] [address] [place] [address] * (ABNORMAL) Comprehensive Metabolic Panel (11/20/2024 10:37 AM HULL GRINDER) Glucose 97 70 - 99 mg/dL [facility] BUN 19 8 - 27 mg/dL [facility] Creatinine 1.03(H) 0.57 - 1.00 mg/dL [facility] eGFR CKD-EPI CR 2020 59(L) >59 mL/min/1.7 3 [facility] BUN/Creatinine Ratio 18 12 - 28 [facility] Sodium 140 134 - 144 mmol/L [facility] Potassium 4.9 3.5 - 5.2 mmol/L [facility] Chloride 102 96 - 106 mmol/L [facility] Bicarbonate (CO2) 25 20 - 29 mmol/L [facility] Calcium 9.9 8.7 - 10.3 mg/dL [facility] Total Protein 6.7 6.0 - 8.5 g/dL [facility] Albumin 4.4 3.9 - 4.9 g/dL [facility] Globulin 2.3 1.5 - 4.5 g/dL [facility] Total Bilirubin 0.3 0.0 - 1.2 mg/dL [facility] Alkaline Phosphatase 65 44 - 121 IU/L [facility] AST (SGOT) 23 0 - 40 IU/L [facility] ALT (SGPT) 11 0 - 32 IU/L [facility] 11/20/2024 10:3 7 AM HULL GRINDER 11/19/2024 11:00 PM HULL GRINDER us Franklin Abreu MD LAB BLOOD ORDERABLES Final R esult [facility] [address] [place] [address] from Last 3 Months Insurance [employer] Care Teams Litharge Supervisor Relationship Specialty Start Date End Date Moo Escamilla MD [address] [place] [address] PCP - General Internal Medicine 01/30/23
--- OUTSIDE RECORDS SUMMARY | 2025-01-07 15:05 | XMS_ITS | Encounter Summary ---
Author Organization [facility] [employer] [facility] Address [address] [place] [phone] Phone Care Team Providers Care Molder Punch Name Role Phone Moo Escamilla MD Primary Care Provider [phone] Reason for Visit * Reason Comments Med Refill Encounter Details Date Type Department Care Team (Late st Contact Info) Description 02/17/2022 Refill [place] [facility] [address] [facility] [address] [place] [address] [place] [address] [place] [phone] Social History Tobacco Use Types Packs/Day Years Used Date Smoking Tobacco: Former Cigarettes Smokeless Tobacco: Current Alcohol Use Standard Drinks/Week Comments Never 0 (1 standard drink = 0.6 oz pur e alcohol) Comments Unknown Sex and Gender Information Value Date Recorded Sex Assigned at Not on file Legal Sex Female 2:54 PM EST Gender Identity Not on file Sexual Orientation Not on file documented as of this encounter Plan of Treatment Upcoming Encounters Date Type Department Care Team (Late Contact Info) Description 05/26/2025 10:30 AM CDT Office Visit [place] [facility] [address] [facility] [address] [place] [phone] Franklin Aberu MD [address] [address] documented as of this encounter Visit Diagnoses Not on filedocumented in this encounter Care Teams Molder Punch Relationship Specialty Start Date End Date Moo Escamilla MD [address] [place] [phone] PCP - General Internal Medicine 01/30/23 documented as of this encounter
--- OUTSIDE RECORDS SUMMARY | 2025-01-07 15:05 | XMS_ITS | Clinical Summary ---
Author Organization [facility] Address [address] [place] [phone] Phone Care Team Providers Care Service Attendant Name Role Phone Marcelino Kwong MD Primary Care Provider [phone] Allergies No known active allergies Medications Medication Sig Dispensed Refills Start Date End Date Status HYDROcodone-acetamino phen (NORCO) 5-325 MG per tablet Take 1-2 tablets by mouth 09/27/2018 Active raNITIdine (ZANTAC) 150 MG tablet Take 150 mg by mouth 04/09/2019 Active gabapentin (NEURONTIN) 300 MG capsule Take 300 mg by mouth 04/09/2019 Active fenofibrate (TRIGLIDE) 160 MG tablet Take 160 mg by mouth 04/10/2019 Active atorvastatin (LIPITOR) 40 MG tablet Take 40 mg by mouth 04/10/2019 Activ e atenolol (TENORMIN) 50 MG tablet Take 50 mg by mouth 10/03/2017 Act austen metFORMIN (GLUCOPHAGE) 500 MG tablet Take 500 mg by mouth 2 (two) times a day with meals Active ergocalciferol (VITAMIN D-2) 67741 units capsule Take 50,000 Units by mouth 1 (one) time per week Active aspirin 81 MG chewable tablet Chew 81 mg 1 (one) time each day Active albuterol (2.5 MG/3ML) 0.083% nebulizer solution 12/22/2019 Active lisinopril (PRINIVIL,ZESTRIL) 20 MG tablet Take 20 mg by mouth 1 (one) time each day 07/01/2020 Active metFORMIN XR 500 MG 24 hr tablet Take 500 mg by mouth 2 (two) times a day 05/24/2020 Active montelukast (SINGULAIR) 10 MG tablet Take 10 mg by mouth 1 (one) time each day in the evening 06/25/2020 Active traMADol (ULTRAM) 50 MG tablet TAKE ONE TABLET BY MOUTH DAILY ONLY if needed for breakthru pain 06/30/2020 Active Combivent Respimat 20-100 MCG/ACT inhaler Inhale 1 puff 4 (four) times a day as needed for wheezing 10/28/2020 Active omeprazole (PriLOSEC) [address] capsule take 1 capsule by oral route every day before a meal 12/28/2020 Active DULoxetine (CYMBALTA) [address] capsule Take 60 mg by mouth 1 (one) time each day 07/09/2021 Active tiZANidine (ZANAFLEX) 4 MG tablet Take 4 mg by mouth 1 (one) time each day 07/04/2021 Active Active Problems Problem Noted Date Diagnosed Date Type 2 diabetes mellitus without complication Acquired hypothyroidism 05/04/2021 Stage 3a chronic kidney disease 01/21/2021 Obstructive sleep apnea syndrome 09/28/2020 Electrocardiogram abnormal 06/05/2019 Essential hypertension 06/05/2019 Hyperlipidemia 06/05/2019 Nonspecific abnormal results of function study o f kidney 06/05/2019 History of lumbar laminectomy 09/25/2018 Spinal stenosis of lumbar region 09/25/2018 Prolapsed lumbar intervertebral disc 09/25/2018 Microscopic hematuria 06/24/2012 Immunizations Name Administration Dates Next Due Influenza Injectable Mdck Quadrivalent Preservative 08/11/2020 Influenza LAIV (Nasal) 12/19/2018,2018,08/28/2017,2016,08/23/2016,08/23/2016,08/31/2015,1 Influenza Split 08/08/2019 Influenza TIV (IM) 08/08/2019,07/13/2019, 014 Influenza, Quadrivalent 12/19/2018,08/28,08/23/2016,2014 Influenza, Unspecified 08/11/2020,2018,12/19/2018,2016,08/23/2016,08/31/2015,08/24/2014,1 Moderna Sars-cov-2 Vaccination 01/25/2021,2020 Pneumococcal Conjugate 13-Valent 09/13/2015,12/2014 Zoster Recombinant 11/26/2020, 0,09/20/2020,2019,08/11/2020 Family History Medical History Relation Comments Kidney disease Father Diabetes Mother Kidney disease Mother Relation Status Comments Father Mother Social History Tobacco Use Types Packs/Day Years Used Date Smoking Tobacco: Former Smokeless Tobacco: Never Alcohol Use Standard Drinks/Week Comments Not Currently 0 (1 standard drink = 0.6 oz pur e alcohol) Sex and Gender Information Value Date Recorded Sex Assigned at Not on file Gender Identity Not on file Sexual Orientation Not on file Last Filed Vital Signs Vital Sign Reading Time Taken Comments Blood Pressure 122/70 08/01/2021 1:45 PM CDT Pulse 72 08/01/2021 1:45 PM CDT Temperature 36.6 C (97.9 F) 08/01/2021 1:45 PM CDT Respiratory Rate - - Oxygen Saturation - - Inhaled Oxygen Concentration - - Weight 92.5 kg (204 lb) 08/01/2021 1:45 PM CDT Height 157.5 cm (5' 2 ) 08/01/2021 1:45 PM CDT Body Mass Index 37.31 08/01/2021 1:45 PM CDT Plan of Treatment Health Maintenance Due Date Last Done Comments Pneumococcal PPSV23/PCV13 65 + Years / Low and Medium Risk (2 of 3 - PPSV23 or PCV20) 02/06/2020 09/13/2015, 09/13/2015 COVID-19 Vaccine (3 - 2023-2 5 season) 2024 01/25/2021, 01/25/2021 Influenza Vaccine (#1) 2024 0, 08/11/2020, 08/08/2019, Additional history exists Care Teams Service Attendant Relationship Specialty Start Date End Date Marcelino Kwong MD [address] [place] [address] PCP - General Internal Medicine 08/01/21
--- OUTSIDE RECORDS SUMMARY | 2025-01-07 15:05 | XMS_ITS | Encounter Summary ---
Author Organization [facility] Address [address] [place] [address] Phone Care Team Providers Care Linux Administrator Name Role Phone Moo Escamilla MD Primary Care Provider [phone] Reason for Visit * Reason Onset Date Comments Med Refill 11/25/2024 Encounter Details Date Type Department Care Team (Late st Contact Info) Description 11/25/2024 Refill [facility] [address] [facility] [address] [place] [address] Perla Connelly CMA [address] [facility] [address] [place] [address] Social History Tobacco Use Types Packs/Day [...] Description 05/26/2025 10:30 AM CDT Office Visit [facility] [address] [facility] [address] [place] [address] Franklin Abreu MD [address] [facility] [address] [place] [address] documented as of this encounter Visit Diagnoses Not on filedocumented in this encounter Care Teams Linux Administrator Relationship Specialty Start Date End Date Moo Escamilla MD [address] [place] [address] PCP - General Internal Medicine 01/30/23 documented as of this encounter
--- OUTSIDE RECORDS SUMMARY | 2025-01-07 15:05 | XMS_ITS | Patient Health Summary ---
Author Organization [facility] Address [address] [facility] [place] [address] Care Team Providers Care Ladle Liner Name Role Phone Aravind Bird MD Primary Care Provider [phone] Note from [facility],non-owned Affiliates and Associated Physician Practices is amultiple site organization consisting of ambulatory clinics and hospital sitesin [place], [place], [place] and [place]. This disclosure is being madepursuant to the Care Everywhere program and may not contain all information available regarding this patient. Last updated 18.[facility] Allergies * Codeine(Vomiting) Medications * Be aware that medications may not be up to date on this document. Alwaysverify current medications with the patient. * PARoxetine (PAXIL) 20 MG tablet(Started 10/10/2021) Take 1 tablet by mouth once daily 2 refills by 10/10/2022 * omeprazole (PRILOSEC) 20 MG capsule(Started 12/28/2020) Take 20 mg by mouth once daily * montelukast (SINGULAIR) 10 MG tablet(Started 06/25/2020) Take 10 mg by mouth once daily * albuterol-ipratropium (COMBIVENT RESPIMAT) 20-100 MCG/ACT inhaler(Started 09/28/2020) Inhale 1 puff by mouth 4 times daily * fenofibrate (LOFIBRA) 160 MG tablet(Started 05/28/2020) Take 160 mg by mouth once daily * DULoxetine (CYMBALTA) 60 MG capsule(Started 07/09/2021) Take 1 capsule by mouth once daily * atorvastatin (LIPITOR) 40 MG tablet(Started 05/28/2020) Take 40 mg by mouth once daily * aspirin (ASPIRIN) 81 MG chew tablet Take 81 mg by mouth once daily * amoxicillin (AMOXIL) 500 MG capsule(Started 05/26/2022) * metFORMIN ER 24hr (GLUCOPHAGE XR) 500 MG tablet(Started 05/26/2022) TAKE 2 TABLETS BY MOUTH ONCE DAILY AT 5PM WITH EVENING MEAL * ketoconazole (Nizoral) 2 % shampoo(Started 04/12/2023) Apply to wet hair, leave on for 3 minutes, then rinse; three times weekly. 30 days supply 3 refills by 04/11/2024 * albuterol HFA (Proventil; Ventolin; Proair) 108 (90 Base) MCG/ACT inhaler Inhale 2 (two) puffs by mouth every 6 hours as needed for Shortness of Breath, Wheezing or Cough * azithromycin (Zithromax) 500 MG tablet Take 1 (one) tablet by mouth once daily * bisacodyl EC (Dulcolax) 5 MG tablet(Started 09/11/2023) Take 1 (one) tablet by mouth pre-Procedure once * Blood Glucose Monitoring Suppl (Accu-Chek Guide) w/Device KIT(Started 01/30/2024) as directed * Symbicort 160-4.5 MCG/ACT inhaler(Started 09/06/2022) Inhale 2 (two) puffs by mouth 2 times daily * carvedilol (Coreg) 12.5 MG tablet(Started 10/23/2022) Take 1 (one) tablet by mouth 2 times daily with morning and evening meal * Cholecalciferol 50 MCG (2000 UT)(Started 04/01/2024) Take 1 (one) tablet by mouth once daily * cyclobenzaprine (Flexeril) 5 MG tablet Take 1 (one) tablet by mouth 3 times daily as needed * diclofenac sodium EC (Voltaren) 75 MG tablet(Started 07/26/2023) Take 1 (one) tablet by mouth as directed * Pennsaid 2 % topical solution Apply 2 (two) Pump to affected area 2 times daily * doxycycline hyclate (Vibramycin) 100 MG capsule Take 1 (one) capsule by mouth 2 times daily * escitalopram (Lexapro) 10 MG tablet Take 1 (one) tablet by mouth once daily * escitalopram (Lexapro) 20 MG tablet Take 1 (one) tablet by mouth once daily * famotidine (Pepcid) 20 MG tablet Take 1 (one) tablet by mouth 2 times daily * Accu-Chek Guide test strip(Started 01/30/2024) Use 1 (one) strip as directed * furosemide (Lasix) 20 MG tablet Take 1 (one) tablet by mouth once daily * hydroCHLOROthiazide (Microzide) 12.5 MG capsule Take 1 (one) capsule by mouth once daily * HYDROcodone-acetaminophen (Cazenovia) 5-325 MG tablet Take 1 (one) tablet by mouth 2 times daily as needed for Pain * HYDROcodone-acetaminophen (Cazenovia) 7.5-325 MG tablet Take 1 (one) tablet by mouth 2 times daily as needed for Pain * mometasone (Elocon) 0.1 % cream Apply to affected area as directed * naproxen (Naprosyn) 500 MG tablet(Started 06/17/2022) Take 1 (one) tablet by mouth 2 times daily as needed for Pain * srgwzikb-mwkjafqai-pd (Cortisporin) 3.5-61813-1 otic suspension Instill 1 (one) drop into both ears as directed * ondansetron, disintegrating, (Zofran ODT) 4 MG tablet Take 1 (one) tablet by mouth every 6 hours as needed for Nausea/Vomiting * ondansetron (Zofran) 4 MG tablet Take 1 (one) tablet by mouth every 6 hours as needed for Nausea/Vomiting * predniSONE (Deltasone) 10 MG tablet Take 1 (one) tablet by mouth as directed * predniSONE (Deltasone) 20 MG tablet(Started 07/31/2022) Take 2 (two) tablets by mouth once daily * proparacaine (Alcaine) 0.5 % ophthalmic solution Instill 1 (one) drop into right eye 3 times daily * simvastatin (Zocor) 10 MG tablet Take 1 (one) tablet by mouth every evening * tirzepatide (Mounjaro) 2.5 MG/0.5ML injection Inject 2.5 (two and one-half) mg subcutaneously every 7 days * Mounjaro 5 MG/0.5ML injection Inject 5 (five) mg subcutaneously every 7 days * Mounjaro 7.5 MG/0.5ML injection Inject 7.5 (seven and one-half) mg subcutaneously every 7 days * tiZANidine (Zanaflex) 2 MG capsule Take 1 (one) capsule by mouth every 6 hours as needed for Muscle Spasms * traZODone (Desyrel) 50 MG tablet Take 1 (one) tablet by mouth at bedtime * triamcinolone acetonide (Kenalog) 0.1 % cream Apply to affected area as directed * atenolol (Tenormin) 50 MG tablet Take 1 (one) tablet by mouth once daily * clobetasol (Temovate) 0.05 % solution Apply to affected area 2 times daily as needed * DULoxetine (Cymbalta) 30 MG capsule(Started 02/06/2024) Take 1 (one) capsule by mouth once daily * gabapentin (Neurontin) 100 MG capsule Take 1 (one) capsule by mouth at bedtime * gabapentin (Neurontin) 300 MG capsule Take 1 (one) capsule by mouth 2 times daily * gabapentin (Neurontin) 600 MG tablet(Started 04/02/2023) Take 1 (one) tablet by mouth 3 times daily * lisinopril (Prinivil; Zestril) 20 MG tablet Take 1 (one) tablet by mouth once daily * methylPREDNISolone (Medrol Dosepak) 4 MG tablet(Started 06/19/2024) Take by mouth as directed <!--EPICS-->Follow package insert dosing for six day supply.<!--EPICE--> * cyclobenzaprine (Flexeril) 10 MG tablet(Started 06/19/2024) Take 1 (one) tablet by mouth 3 times daily as needed for Muscle Spasms * BUPivacaine (Marcaine) 0.5 % injection(Started 06/30/2024) Use as instructed once * Mounjaro 10 MG/0.5ML injection Inject 10 (ten) mg subcutaneously every 7 days * triamcinolone acetonide (Kenalog-10) injection(Started 06/30/2024) Inject 1 mL into muscle once Active Problems Problem Noted Date Diagnosed Date Insomnia 06/06/2024 Otitis media 06/06/2024 Pes anserinus tendinitis and bursitis 06/06/2024 Skin eruption 06/06/2024 Headache 06/06/2024 Thumb pain 06/06/2024 Tobacco dependence syndrome 06/06/2024 Generalized osteoarthritis 06/06/2024 Disorder of rotator cuff 06/06/2024 Diaphragmatic hernia 06/06/2024 Common cold 06/06/2024 Chronic obstructive pulmonary disease 06/06/2024 Depressive disorder 06/06/2024 Carcinoma of breast 06/06/2024 Asthma 06/06/2024 Apocrine gland cyst 06/06/2024 Allergic rhinitis 06/06/2024 Nocturnal muscle spasm 05/07/2024 Lumbar spondylosis 01/07/2024 Pain in joint of right shoulder 10/21/2023 Right knee pain 10/21/2023 Disorder of scalp 10/21/2023 Chronic kidney disease, stage 2 (mild) Itching of both hands 06/04/2023 Cramp of both lower extremities 06/04/2023 Pain of right sacroiliac joint 05/21/2023 Cobalamin deficiency 05/03/2023 Muscle pain 04/02/2023 Musculoskeletal pain 10/22/2022 Vitamin D deficiency 10/22/2022 Chronic depression 08/01/2022 Muscle strain of right shoulder 05/30/2022 Unable to lose weight 05/30/2022 Injury of right shoulder 03/26/2022 Diabetic neuropathy 03/23/2022 Hypercalcemia 03/07/2022 Multiple lipomas 01/15/2022 Mixed hyperlipidemia 12/07/2021 Low vitamin D level 11/23/2021 High serum creatinine 11/23/2021 B12 deficiency 11/23/2021 Loss of hair 11/21/2021 Acute folliculitis 11/07/2021 Gastroesophageal reflux disease 10/27/2021 Eczema 10/27/2021 Body mass index (BMI) of 38.0 to 38.9 in adult 1 Intermittent claudication 06/29/2021 Type 2 diabetes mellitus without complication Conductive hearing loss, bilateral 06/02/2021 Fatigue 05/04/2021 Acquired hypothyroidism 05/04/2021 Stage 3 chronic kidney disease 01/21/2021 Obstructive sleep apnea syndrome 09/28/2020 Personal history of nicotine dependence 09/28/20 20 Tobacco abuse 09/28/2020 Dyspnea 09/28/2020 Obesity 09/28/2020 Hyperlipidemia 06/05/2019 Nonspecific abnormal results of function study o f kidney 06/05/2019 Essential hypertension 06/05/2019 Abnormal electrocardiography 06/05/2019 Spinal stenosis of lumbar region 09/25/2018 S/P lumbar laminectomy 09/25/2018 History of lumbar laminectomy 09/25/2018 Herniated lumbar intervertebral disc 09/25/2018 Severe low back pain 06/13/2018 Spasm of back muscles 06/13/2018 Lumbar radiculopathy 10/08/2017 Osteoarthritis of right knee 01/04/2017 Diabetes mellitus 01/04/2017 Urinary incontinence 07/26/2012 Microscopic hematuria 06/24/2012 Osteoarthritis 05/16/2012 Resolved Problems Problem Noted Date Diagnosed Date Resolved Date Constipation 02/02/2024 07/04/2024 Impacted cerumen 05/03/2023 06/20/2024 Acute left otitis media 02/21/2022 09/0 04/2024 Otitis externa 06/02/2021 07/18/2024 Immunizations * INFLUENZA VACCINE, TRIV. (AFLURIA, FLUZONE TRIVALENT; 6MO+) (IIV3)(Given 08/08/2019, 07/13/2019, 08/19/2014) * Covid Moderna primary monovalent 12+ yr 0.5mL(Given 01/25/2021) * FLU VACCINE QUAD IIV4 SPLIT 0.25 ML IM(Given 09/06/2022, 12/19/2018, 08/28/2017, 08/23/2016, 08/31/2015) * FLU VACCINE TRI IIV3 SPLIT PF IM (FLUVIRIN)(Given 09/24/2013) * INFLUENZA VACCINE(Given 09/07/2021, 08/11/2020, 08/08/2019, 12/19/2018, 12/19/2018, 08/28/2017, 08/28/2017, 08/23/2016, 08/23/2016, 08/31/2015, 08/31/2015, 08/24/2014, 08/19/2014) * INFLUENZA VACCINE, ADJUVANTED, QUADR. (FLUAD QUADRIVALENT; 65Y+) (AIIV4)(Given 08/11/2020) * INFLUENZA VACCINE, CELL CULTURE, QUADR. (FLUCELVAX QUADRIVALENT; 6MO+), 0.5 ML (CCIIV4)(Given 08/11/2020) * PNEUMOCOCCAL PPSV23(Given 02/21/2022) * Pneumococcal Pcv13 Conj(Given 09/13/2015) * TDAP (7yrs+)(Given 02/21/2022) * Zoster Hzv Vacc Recombinant Inj Im(Given 11/26/2020, 11/26/2020, 09/20/2020, 08/11/2020, 08/11/2020) Social History Tobacco Use Types Packs/Day Years Used Date Smoking Tobacco: Never Smokeless Tobacco: Never Tobacco Cessation:Counseling Given: Not Answered Sex and Gender Information Value Date Recorded Sex Assigned at Not on file Gender Identity Not on file Sexual Orientation Not on file Last Filed Vital Signs Vital Sign Reading Time Taken Comments Blood Pressure 152/88 10/11/2021 10:02 AM [employer] Pulse 84 10/11/2021 10:02 AM [employer] Temperature 36.3 C (97.3 F) 10/11/2021 10:02 AM [employer] Respiratory Rate 18 10/11/2021 10:0 2 AM [employer] Oxygen Saturation 99% 10/11/2021 10: 02 AM [employer] Inhaled Oxygen Concentration - - Weight 73.4 kg (161 lb 12.8 oz) 024 10:50 AM CDT Height 154.9 cm (5' 1 ) 10/11/2021 10:0 2 AM [employer] Body Mass Index 30.57 10/11/2021 10:02 AM [employer] Procedures * XR LUMBAR SPINE 2 OR 3VW(Performed 06/19/2024) Performed for Neurogenic claudication due to lumbar spinal stenosis, Lumbosacral radiculopathy at L5 * XR LUMBAR SPINE 2 OR 3VW(Performed 05/19/2024) Performed for Low back pain, unspecified back pain laterality, unspecified chronicity, unspecified whether sciatica present Results * XR Lumbar Spine 2 or 3Vw (06/19/2024 10:53 AM CDT) Only the most recent of2 resultswithin the time period is included. Anatomical Region Laterality Modality Spine Radiographic Obnnie ging 06/19/2024 1:33 PM CDT Impressions 06/19/2024 3:25 PM CDT IMPRESSION: Moderate to severe multilevel degenerative disc disease. Report dictated by Christopher Lee MD (residential advisor). I, Taj Schumacher MD have personally reviewed and interpreted this examination/study. > Interpreting Provider: Taj Schumacher MD on 06/19/2024 3:25 PM Narrative 06/19/2024 3:25 PM CDT PROCEDURE: XR LUMBAR SPINE 2 OR 3VW, DATE/TIME OF EXAM: 06/19/2024 10:54 AM, LOCATION [facility] INDICATION: M48.062: Neurogenic claudication due to lumbar spinal stenosis M54.17: Lumbosacral radiculopathy at L5 ADDITIONAL CLINICAL INFORMATION: Ordering Provider Reason For Exam: Technologist Note: Additional: COMPARISON: 05/19/2024 lumbar spine radiograph FINDINGS: Dextrocurvature of the lumbar spine, unchanged. Grade 1 mild right lateral listhesis and retrolisthesis of L3 on L4. There is advanced degenerative disc disease at this level and to a lesser degree at other levels. There is no fracture or compression deformity. There is lower lumbar facet arthropathy. Procedure Note Taj Schumacher MD - 06/19/2024 PROCEDURE: XR LUMBAR SPINE 2 OR 3VW, DATE/TIME OF EXAM: 06/19/2024 10:54 AM, LOCATION [facility] INDICATION: M48.062: Neurogenic claudication due to lumbar spinal stenosis M54.17: Lumbosacral radiculopathy at L5 ADDITIONAL CLINICAL INFORMATION: Ordering Provider Reason For Exam: Technologist Note: Additional: COMPARISON: 05/19/2024 lumbar spine radiograph FINDINGS: Dextrocurvature of the lumbar spine, unchanged. Grade 1 mild rightlateral listhesis and retrolisthesis of L3 on L4. There is advanced degenerative disc disease at this level and to a lesser degree at other levels. Thereis no fracture or compression deformity. There is lower lumbar facet arthropathy. IMPRESSION: Moderate to severe multilevel degenerative disc disease. Report dictated by Christopher Lee MD (residential advisor). I, Taj Schumacher MD have personally reviewed and interpreted this examination/study. > Interpreting Provider: Taj Schumacher MD on 06/19/2024 3:[address] MD DIAGNOSTIC IMAGING O RDERABLES Care Teams Ladle Liner Relationship Specialty Start Date End Date Aravind Bird MD [address] [place] [id number] [facility] - General 04/06/22
--- OUTSIDE RECORDS SUMMARY | 2025-01-07 15:05 | XMS_ITS | Clinical Summary ---
Author Organization [facility] Address [address] [place] [address] Care Team Providers Care Gang Pusher Name Role Phone Uche Gardner MD Unavailable UnavailEloise Reeves MD Unavailable [phone] Allergies No known active allergies Medications montelukast 10 MG tablet Take 10 mg by mouth nightly at bedtime. 0 Active omeprazole 20 MG capsule Take 20 mg by mouth daily. 1 Active aspirin EC (ASPIRIN EC) 81 MG tablet Take 81 mg by mouth daily. Active ipratropium-albute rol 20-100 MCG/ACT inhaler Inhale 1 puff into the lungs 4 (four) times daily. Please provide assembled. Active gabapentin 300 MG capsuleIndications :S/P lumbar laminectomy,Spinal stenosis of lumbar region without neurogenic claudication,Lumba r radiculopathy,Lumb ar disc herniation Take 1 capsule in the morning 1 capsule in the afternoon and then 2 capsules at bedtime. 360 capsule 1 Active atorvastatin 40 MG tablet Take 1 tablet (40 mg total) by mouth nightly at bedtime. at bedtime. 90 tablet 3 1 Active fenofibrate 160 MG tablet Take 1 tablet (160 mg total) by mouth nightly. 90 tablet 3 1 Active lisinopril 20 MG tablet Take 1 tablet (20 mg total) by mouth daily. 90 tablet 3 1 Active METFORMIN ER 500 MG 24 hr tabletIndications: Uncontrolled secondary diabetes mellitus with stage 3 CKD (GFR 30-59) Take 1 tablet by mouth twice daily 180 tablet 1 Active DULOXETINE 60 MG capsuleIndications :Lumbar radiculopathy Take 1 capsule by mouth once daily 30 capsule 1 Active TIZANIDINE 4 MG tabletIndications: Lumbar radiculopathy Take 1 tablet by mouth once daily 30 tablet 2 Active atenolol (TENORMIN) 50 MG tablet Take 1 tablet by mouth in the evening 90 tablet 2 Active Active Problems Problem Noted Date Diagnosed Date Body mass index (BMI) of 38.0 to 38.9 in adult 1 TU (obstructive sleep apnea) 07/21/2021 Intermittent claudication 06/29/2021 Type 2 diabetes mellitus wit hout complication, without long-term current use of insulin ([facility]) 06/15/2021 Conductive hearing loss, bilateral 06/02/2021 Other infective chronic otitis externa of both e ars 06/02/2021 Fatigue, unspecified type 05/04/2021 Acquired hypothyroidism 05/04/2021 Nonspecific abnormal results of function study o f kidney 06/05/2019 Lumbar spinal stenosis 09/25/2018 Lumbar disc herniation 09/25/2018 S/P lumbar laminectomy 09/25/2018 Severe low back pain 06/13/2018 Spasm of back muscles 06/13/2018 Lumbar radiculopathy 10/08/2017 Osteoarthritis of right knee 01/04/2017 Urinary incontinence 07/26/2012 Arthropathy associated with other conditions classifiable elsewhere 05/16/2012 Degeneration of intervertebral disc 05/16/2012 Essential hypertension Mixed hyperlipidemia Abnormal EKG Resolved Problems Problem Noted Date Diagnosed Date Resolved Date Need for immunization against influenza 09/08/2021 09/12/2021 Lumbar radiculopathy 09/25/2018 021 Postop check 05/23/2017 07/23/2020 Nausea 03/16/2017 05/04/2021 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 03/05/2017 05/04/2021 Uncontrolled secondary diabe benson mellitus with stage 3 CKD (GFR 30-59) 01/04/2017 06/15/2021 Carpal tunnel syndrome 08/21/201205/04 Microscopic hematuria 06/24/20122020 Colon cancer screening 05/16/201207/04 Immunizations Name Administration Dates Next Due Fluzone High Dose - >Age 65 (Prefilled Syringe) 09/07/2021 Influenza (FluMist) 12/19/2018, 7,08/23/2016,2014 Influenza (Generic) 08/11/2020,08/08/2019,2013 Influenza Adult (Generic) 08/11/2020,,12/19/2018,2016,08/23/2016,08/31/2015,08/19/2014 MODERNA COVID-19 (12+) MRNA, LNP-S, PF, 100 MCG/ 0.5 ML DOSE 01/25/2021 Pneumococcal (Prevnar 13) 09/13/2015 Shingrix 11/26/2020,09/20/2020,08/11/2020 Family History Medical History Relation Comments Hypertension Daughter 2 Hypertension Father Kidney Disease Father refused dialysis Diabetes Mother Hypertension Mother Kidney Disease Mother on dialysis COPD Other some sisters hav e COPD Cancer Other niece has breast cancer overdose Son 2 heroine Relation Status Comments Daughter 1 Alive Daughter 2 Alive Father (Age 70) esrd Mother (Age 54) kidney failure Other Alive Son 1 Alive Son 2 Social History Tobacco Use Types Packs/Day Years Used Date Smoking Tobacco: Former Cigarettes 1 49 1 966 - 2015 Electronic Cigarettes Smokeless Tobacco: Never Tobacco Cessation:Counseling Given: No Comments:vaping daily Alcohol Use Standard Drinks/Week Comments No 0 (1 standard drink = 0.6 oz pur e alcohol) PHQ-2 Answer Date Recorded PHQ-2 Score - If the patient scores above 3, please move on to questions 3-9 0 05/04/2021 Comments No Sex and Gender Information Value Date Recorded Sex Assigned at Not on file Legal Sex Female 5:12 PM CDT Gender Identity Not on file Sexual Orientation Not on file Occupation Industry Job Start Date Job End Date Not on file Not on file Not on file Not on file Last Filed Vital Signs Vital Sign Reading Time Taken Comments Blood Pressure 124/82 09/07/2021 11:10 AM CDT Pulse 93 09/07/2021 11:10 AM CDT Temperature 36.2 C (97.2 F) 09/07/2021 11:10 AM CDT Respiratory Rate 20 09/07/2021 11:1 0 AM CDT Oxygen Saturation 94% 09/07/2021 11: 10 AM CDT Inhaled Oxygen Concentration - - Weight 94.3 kg (207 lb 12.8 oz) 021 11:10 AM CDT Height 157.5 cm (5' 2 ) 09/07/2021 11:1 0 AM CDT Body Mass Index 38.01 09/07/2021 11:10 AM CDT Plan of Treatment Health Maintenance Due Date Last Done Comments Kidney Health Evaluation 1955 Diabetes: Retinopathy Eye Exam 1973 Hepatitis C 1973 DTaP, Tdap and Td Vaccines (1 - Tdap) 1974 Mammogram Screening 1995 Pneumococcal Vaccine: 65+ Years (2 of 2 - PPSV23 or PCV20) 11/08/2015 09/13/2015 Annual Medicare Wellness Visit 02/06/2020 Hemoglobin A1C 12/03/2021 06/02/2021, 09/25/2018 Lipid Panel 01/10/2022 01/10/2021, 0607/2020, 11/11/2018, Additional history exists COVID-19 Vaccine ( season) 2024 01/25/2021, 01/25/2021, 01/02/2021 Colorectal Cancer Screening FIT-DNA (3 Years) 07/19/2024 07/19/2021, 07/19/2021 Influenza Adult (#1) 2024 09/07/2021, 08/11/2020, 08/11/2020, Additional history exists PHQ-2 (Physician [place]) 11/12/2024 RSV Immunization or 60+ Years (1 - 1-dose 75+ series) 2030 Zoster Vaccines Completed 11/26/2020, 110 07/2020, 08/11/2020 Dexa Scan (General) Completed 07/26/2022 Meningococcal B Vaccine Aged Out No l onger eligible based on patient's age to complete this topic Meningococcal Vaccine Aged Out No maribel margo eligible based on patient's age to complete this topic RSV Immunizations Under 20 Months Aged Out No longer eligible based on patient's age to complete this topic Procedures Procedure Name Priority Date/Time Associated Diagnosis Comments BONE DENSITY/DEXA Routine 07/26/2022 11: 16 AM CDT Asymptomatic menopausal state COLOGUARD (EXACT SCIENCE) Routine 07/19/2021 10:00 AM CDT Colon cancer screening HEMOGLOBIN, GLYCOSYLATED Routine 06/02/2021 9:12 AM CDT Type 2 diabetes mellitus without complication, without long-term current use of insulin ([facility]) LIPID PANEL Routine 01/10/2021 10:06 AM ENGINE INSPECTOR Chronic kidney disease, stage III (moderate) ([facility]) Hyperlipemia from Last 3 Months or Most Recently Relevant to Health Maintenance Results * BONE DENSITY/DEXA (07/26/2022 11:16 AM CDT) Anatomical Region Laterality Modality Bone Mammography 07/26/2022 3:49 PM CDT Impressions 07/26/2022 3:52 PM CDT IMPRESSION: Lumbar spine: Lowest T score is 1.2 at L2. Within normal limits. Hips: Lowest T score is -1.7 at the right femoral neck. This indicates osteopenia. Frax: 10 year Probability of major osteoporotic fracture: 9.6%. 10 year Probability of hip fracture: 2.1%. Referred By: GRIFFIN REILLY Interpreted By: Dante Mathews MD, 07/26/2022 3:49 PM Narrative 07/26/2022 3:52 PM CDT Examination: Bone Density Axial Exam Date/Time: 07/26/2022 10:52 AM Reason For Exam: menopause Postmenopausal Comparison: None Findings: DEXA bone densitometry The bone mineral density (BMD) was determined by dual-energy x-ray absorptiometry, the results are as follows: Lumbar spine: L1: 1.132 (GM/SQCM). T score: 1.3. L2: 1.156 (GM/SQCM). T score: 1.2. L3: 1.339 (GM/SQCM). T score: 2.3. L4: 1.460 (GM/SQCM). T score: 3.6. L1-L4: 1.272 (GM/SQCM). T score: 2.0. Hips: Left femoral neck: 0.721 (GM/SQCM). T score: -1.1. Right femoral neck: 0.659 (GM/SQCM). T score: -1.7. Mean: 0.690 (GM/SQCM). T score: -1.4 Left proximal femur: 1.018 (GM/SQCM). T score:0.6. Right proximal femur: 0.974(GM/SQCM). T score: 0.3. Mean: 0.996 (GM/SQCM). T score: 0.4. Procedure Note Dante Mathews MD - 07/26/2022 Examination: Bone Density Axial Exam Date/Time: 07/26/2022 10:52 AM Reason For Exam: menopause Postmenopausal Comparison: None Findings: DEXA bone densitometry The bone mineral density (BMD) was determined bydual-energy x-ray absorptiometry, the results are as follows: Lumbar spine: L1: 1.132 (GM/SQCM). T score: 1.3. L2: 1.156 (GM/SQCM). T score: 1.2. L3: 1.339 (GM/SQCM). T score: 2.3. L4: 1.460 (GM/SQCM). T score: 3.6. L1-L4: 1.272 (GM/SQCM). T score: 2.0. Hips: Left femoral neck: 0.721 (GM/SQCM). T score: -1.1. Right femoral neck: 0.659 (GM/SQCM). T score: -1.7. Mean: 0.690 (GM/SQCM). T score: -1.4 Left proximal femur: 1.018 (GM/SQCM). T score:0.6. Right proximal femur: 0.974(GM/SQCM). T score: 0.3. Mean: 0.996 (GM/SQCM). T score: 0.4. IMPRESSION: Lumbar spine: Lowest T score is 1.2 at L2. Within normal limits. Hips: Lowest T score is -1.7 at the right femoral neck. This indicatesosteopenia. Frax: 10 year Probability of major osteoporotic fracture: 9.6%. 10 year Probability of hip fracture: 2.1%. Referred By: GRIFFIN REILLY Interpreted By: Dante Mathews MD, 07/26/2022 3:49 PM Griffin BOJORQUEZ DEXA Final Re sult * (ABNORMAL) COLOGUARD ([employer] SCIENCE) (07/19/2021 10:00 AM CDT) COLOGUARD RESULT Positive( A) Negative [facility] (CLIA #:[id number]) Comment: POSITIVE TEST RESULT. A positive Cologuard result should be followed with a colonoscopy or visual examination of the colon. The normal value (reference range) for this assay is negative. TEST DESCRIPTION: Composite algorithmic analysis of stool DNA-biomarkers with hemoglobin immunoassay. Quantitative values of individual biomarkers are not reportable and are not associated with individual biomarker result reference ranges. Cologuard is intended for colorectal cancer screening of adults of either sex, 45 years or older, who are at average-risk for colorectal cancer (CRC). Cologuard has been approved for use by the [place]. FDA. The performance of Cologuard was established in a cross sectional study of average-risk adults aged 50-84. Cologuard performance in patients ages 45 to 49 years was estimated by sub-group analysis of near-age groups. Colonoscopies performed for a positive result may find as the most clinically significant lesion: colorectal cancer [4.0%], advanced adenoma (including sessile serrated polyps greater than or equal to 1cm diameter) [20%] or non- advanced adenoma [31%]; or no colorectal neoplasia [45%]. These estimates are derived from a prospective cross-sectional screening study of 10,000 individuals at average risk for colorectal cancer who were screened with both Cologuard and colonoscopy. (Jw Valdez al, N Engl J Med 2014;370(14):0187-9809.) Cologuard may produce a false negative or false positive result (no colorectal cancer or precancerous polyp present at colonoscopy follow up). A negative Cologuard test result does not guarantee the absence of CRC or advanced adenoma (pre-cancer). The current Cologuard screening interval is every 3 years. ([place] Cancer Society and [place]. Multi-Society Task Force). Cologuard performance data in a 10,000 patient pivotal study using colonoscopy as the reference method can be accessed at the following location: [email or web address]/results. Additional description of the Cologuard test process, warnings and precautions can be found at www.cologuard.com. Stool specimen (specimen) STOOL SPECIMEN / Unknown 07/19/2021 10:00 AM CDT 07/20/2021 1:15 PM CDT us Marcelino Kwong MD BODY FLUIDS AND STOOLS O RDERABLES Final Result [facility] ([facility]) [address] [place] [address], [facility] (CLIA #:[id number]) [address] [place] [address] * HEMOGLOBIN, GLYCOSYLATED (06/02/2021 9:12 AM CDT) HGB A1C 6.2 % [id number] T RICKI KRAUS Blood specimen (specimen) 06/02/2021 9:12 AM CDT us Marcelino Kwong MD LABORATORY Final Re sult [id number] [facility] [address] [place] [address], * (ABNORMAL) LIPID PANEL (01/10/2021 10:06 AM ENGINE INSPECTOR) CHOLESTEROL 121 <200 MG/DL 01/10/2021 11:10 AM [facility] TRIGLYCERIDES 176(H) <150 MG/DL 01/10/2021 11:10 AM [facility] HDL 39(L) >40.0 MG/DL 01/10/2021 11:10 AM [facility] LDL (CALCULATED) 47 <100 MG/DL 01/10/2021 11:10 AM [facility] NON HDL CHOLESTEROL 82 <130 MG/DL 01/10/2021 11:10 AM [facility] CHOL/HDL RATIO 3.1 0.0 - 4.5 01/10/2021 11:10 AM [facility] VLDL CALCULATION 35 5 - 55 MG/DL 01/10/2021 11:10 AM [facility] LIPID INTERPRETATION 01/10/2021 11:10 AM [facility] Comment: [facility] CON[facility]ENS[facility] REPORT RECOMMENDATIONS: ADULT CHILD LOW RISK: CHOLESTEROL <200 <170 TRIGLYCERIDE <150 --- HDL >=60 --- LDL <100 <110 BORDERLINE: CHOLESTEROL 200-239 170-199 TRIGLYCERIDE 150-199 --- HDL 40-59 --- LDL 100-159 110-129 HIGH RISK: CHOLESTEROL >=240 >=200 TRIGLYCERIDE >=200 --- HDL <40 --- LDL >=160 >=130 01/10/2021 10:0 6 AM ENGINE INSPECTOR Jere Alfred MD LABORATORY Final Result [facility] [address] [place] [address], [place] [phone] from Last 3 Months or Most Recently Relevant to Health Maintenance Insurance MEDICAID [facility] MEDICAID Advance Directives * Full Code (Latest Code Status on File) Date Activated Date Inactivated Comments 09/25/2018 6:39 PM 09/27/2018 5:30 PM Care Teams Gang Pusher Relationship Specialty Start Date End Date Uche Gardner MD Surgeon NEUROLOGICAL SURGERY 07/25/18 Eloise Tse MD [facility] [address] [place] [address] [employer] [employer] Set Up Operator INTERVENTIONAL CARDIOLOGY 07/30/18
--- OUTSIDE RECORDS SUMMARY | 2025-01-07 15:05 | XMS_ITS | Data Portability ---
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 She has had a nice response to conservative treatment I think we can release her at this point. Recommend she continue with her exercises and weight loss would be good she does take narcotics for back pain I told her that would be something she might want to try to get off of I will see her back on an as-needed basis discussed. [email or web address] Not available 08/07/2023 10:14:55 10/24/2023 10/24/2023 68-year-old patient presents today with right shoulder pain that is been going on for about 6 months, but has recently gotten worse in the last few weeks. She denies any injury. She states that when she wakes up the morning his shoulder is extremely stiff and painful. It is hard for to complete daily activities that include lifting over her head. She states the pain wakes her up at night. she has not tried any treatment at this time. She states she is in kidney failure and cannot take anti-inflammator ies. Imaging: X-rays reviewed show no acute bony abnormality, no fracture. Preserved joint spaces throughout. Physical exam: Tenderness with palpation diffusely around the shoulder. Range of motion 130/20/back pocket. She has 5/5 strength with rotator cuff testing. Soreness with resisted elevation. Positive Jasmyn sign. Positive Neer, Cervantes. Negative Speed, Yergason's. Neurovascular intact throughout. Today we discussed the risks and benefits of a cortisone injection into the right shoulder. She elected to proceed with the injection today. Since she cannot take oral anti-inflammator ies we recommend trying Voltaren gel. We would like her to attend formal physical therapy but she is not interested in doing so at this time. We will send her with a shoulder exercise handout that she can work on at home on her own. We will see her back in 4-6 weeks to check her progress. Not available 10/24/2023 20:53:43 12/10/2023 12/10/2023 68-year-old patient presents today for follow up of right shoulder pain. At her last appointment we gave her a cortisone injection and shoulder exercise hand out. Today she states that her shoulder is still extremely stiff and painful. The injection worked for a short amount of time. She is also taking hydrocodone for her back, but states it does not help the shoulder. Physical exam: Tenderness with palpation diffusely around the shoulder. Range of motion 130/20/back pocket. She has 4/5 strength with rotator cuff testing. Soreness with resisted elevation. Positive Jasmyn sign. Positive Neer, Cervantes. Negative Speed, Yergason's. Neurovascular intact throughout. At this point she has tried conservative measures but is still experiencing pain and weakness. We will order an MRI of the shoulder. We will see her back after the MRI to go over results. She is in agreement with this plan. Not available 12/10/2023 21:38:42 01/08/2024 01/08/2024 Patient has chronic degenerative advanced changes in the lumbar spine with scoliotic curvature and loss of disc height. She complains of low back pain chronically with radiculopathy down the right leg we will get an MRI scan of her lumbar spine. She wants to speak to somebody about possible surgical intervention she is tired of living with it. We will get her a referral to a spine surgeon prior to this though we will get an MRI scan of her lumbar spine with gadolinium. In the meantime she did want a shot of cortisone for some pain relief therefore under sterile conditions I injected the patient's right sacroiliac bursa in the office with 4 cc 0.5% bupivacaine and 20 mg of Kenalog. Patient tolerated procedure well. she will try a course of oral prednisone. She will continue with current conservative measures call for any further problems difficulties or questions if her symptoms worsen or change she is instructed to call immediately she voiced understanding agrees above plan. Not available 01/08/2024 11:40:35 06/30/2024 06/30/2024 By today's x-ray exam the patient is noted to have fairly severe degenerative levoscoliosis of the lumbar spine she has chronic low back pain with some radiculopathy down the right lower extremity as well. She has seen a spine surgeon she is going through a course of treatment with him in the meantime she states she would like a shot of cortisone he advised that she come here for that. Under sterile conditions I injected the patient's right sacroiliac bursa in the office today with 4 cc 0.5% bupivacaine and 20 mg of Kenalog. Patient tolerated procedure well. I will see her back as needed I have recommended that she continue with the spine surgeon she states she is going to see him again in 3 months and they were going to repeat the MRI scan at that time. They will talk from there. She voiced understanding and agrees above plan she will continue with oral anti-inflammator y medication and limited use of hydrocodone prescribed by her primary doctor as well she will call for any further problems difficulties or questions. Not available 06/30/2024 10:40:06 Plan of Treatment Reminders Order Date Submit Date Provider Last Modified By Organization Details Last Modified Time Details Appointments None recorded. Lab None recorded. Referral orthopedic spine surgeon referral - please contact patient to schedule 2023 024 JOSE FRANCISCO tatum -- Neurosurgery, [address] [place], [address], 13:45:28 Procedures injection/a spiration joint/bursa (PROC) 2023 024 [email or web address] In-Office Order, Internal Use Only DO Not Attach Compendium DO Not Attach Compendium, Do Not Delete/merge, [id number] 10:09:55 injection/a spiration joint/bursa (PROC) 2023 024 [email or web address] In-Office Order, Internal Use Only DO Not Attach Compendium DO Not Attach Compendium, Do Not Delete/merge, [id number] 10:50:47 injection/a spiration joint/bursa (PROC) 2022 023 [email or web address] 3 In-Office Order, Internal Use Only DO Not Attach Compendium DO Not Attach Compendium, Do Not Delete/merge, [id number] 14:20:05 Surgeries None recorded. Imaging XR, lumbar spine 2023 024 [email or web address] [facility], [address], [place], [address], 4 11:47:48 MRI, shoulder, w/o contrast - Please contact patient to schedule... Thank you 2023 024 [facility] ([facility]), [address] [place], [address], 4 11:52:54 XR, shoulder, 2 or more view 2022 023 [email or web address] [facility], [address], [place], [address], 3 21:03:12 Medication Orders bupivacaine HCl 0.5 % (5 mg/mL) injection solution 2023 024 [email or web address] [facility]06259, [address], [place], [id number], 4 11:47:48 Kenalog 10 mg/mL suspension for injection 2023 024 [email or web address] 764 [facility], [address], [place], [id number], 4 09:08:56 prednisone 10 mg tablets in a dose pack 2023 024 [email or web address] #40437, [address], [place], [id number], 4 10:07:14 bupivacaine HCl 0.5 % (5 mg/mL) injection solution [email or web address] [facility] #67782, [address], [place], [id number], 4 10:02:24 Kenalog 10 mg/mL suspension for injection [address] [facility]57739, [address], [place], [id number], 4 10:05:04 bupivacaine HCl 0.5 % (5 mg/mL) injection solution [address] [facility] #15081, [address], [place], [id number], 4 10:02:24 Kenalog 10 mg/mL suspension for injection [address] [facility] #44569, [address], [place], [id number], 4 10:05:04 Patient TargetsNo targets recorded. Patient InstructionsNo instructions recorded. Reason for Referral Orthopedic Spine Surgeon Ref erral for Low back pain please contact patient to schedule Referring Physician: Ghassan Tinsley, Orthopedic Surgery, Encounter Date: 01/08/2024 Results Created Date Observation Date Name Description Value Unit Range Abnormal Flag Note LastModifiedBy Organization Detail LastModifiedTime 10/24/20 23 XR, shoul harpreet, 2 or more view No observ ation record ed. [email or web address] [facility] [place] [address], [place], [address], 10/24/2023 20:41:16 12/27/19 24 12/27/2023 MRI, shoul harpreet, w/o contr ast No observ ation record ed. [email or web address] [facility] [address], [place], [address], 12/31/2023 00:48:58 02/20/20 24 02/19/2024 MRI, lumba r spine , w/wo contr ast No observ ation record ed. [email or web address] [facility] [address], [place], [address], 02/21/2024 09:15:26 06/30/20 XR, lumba r spine No observ ation record ed. [email or web address] [facility] [address], [place], [address], 06/30/2024 10:41:23 Result Notes None recorded. Problems Name Problem SNOMED Code Status Onset Date Resolution Date Notes Provider Name and Address Organization Details Recorded Time Benign essential hypertensi on 4729429 Active Not Available [facility] 4 10:00:40 Chronic obstructiv e pulmonary disease 66056937 Active Not Available [facility] 4 10:00:40 Asthma 492035915 Active Not Available [facility] 4 10:00:40 Degenerati ve joint disease involving multiple joints 522357725 Active Not Available [facility] 4 10:00:40 Diaphragma tic hernia 81428877 Active [facility] 4 10:00:40 Type 2 diabetes mellitus 76267336 Active Not Available [facility] 4 10:00:40 Allergic rhinitis 62750246 Active Not Available [facility] 4 10:00:40 Tobacco dependence syndrome 51126931 Active Not Available [facility] 4 10:00:40 Low back pain 694043574 Active 2022 Not Available [facility] 4 10:00:40 Pain in right sacroiliac joint 7299269407815 9107 Active 2022 Not Available [facility] 4 10:00:40 Spinal stenosis of lumbar region 18497187 Active 2022 Not Available [facility] 4 10:00:40 Pain of right shoulder joint 9553564981238 9100 Active 2022 Not Available [facility] 4 10:00:40 Lumbar radiculopa thy 106752176 Active 2023 MARYELLEN Orozco [address], [address], [place], [address] , [employer] [facility] [employer] 4 11:39:45 Lumbar spondylosi s 771503466 Active 2023 MARYELLEN Orozco [address], [address], [place], [address] , [facility] [employer] [facility] [facility] [employer] 4 11:39:54 Notes:Some problems listed i n Documents: #[id number], #[id number], #[id number] could not be added to this patient's chart. Please review these documents and add these problems to the patient's chart manually as needed. Problem Notes None recorded. Procedures Surgical History Date Name Laterality Status Provider Name and Address Organization Details Recorded Time 3 Ortho - Cortisone Injection completed Felipa Quesada NP [address], [address], [place], [address], [facility] [facility] [employer] 10/24/2023 20:52:17 3 Ortho - Cortisone Injection completed Ernesto Norton MD [address], [address], [place], [address], [facility] [employer] [facility] 07/17/2023 09:46:27 3 Ortho - Cortisone Injection completed Ernesto Norton MD [address], [address], [place], [address], [facility] 06/19/2023 09:56:15 3 Ortho - Cortisone Injection completed Ernesto Norton MD [address], [address], [place], [address], [place] [facility] 05/21/2023 09:21:15 Imaging Results Imaging Date Name Status LastModified by Organiz ation Details LastModified Time 10/24/2023 XR, shoulder, 2 or more view completed [email or web address] [facility] [place] [address], [place], [address], 10/24/2023 20:41:16 12/27/2023 MRI, shoulder, w/o contrast completed [email or web address] [facility] [address] [place], [address], 12/31/2023 00:48:58 02/19/2024 MRI, lumbar spine, w/wo contrast completed [facility] [address] [facility] [address], [place], [address], 02/21/2024 09:15:26 06/30/2024 XR, lumbar spine completed [email or web address] [facility] [place] [address], [place], [address], 06/30/2024 10:41:23 Procedure Notes None recorded. Medical Equipment None Reported. Allergies Allergen ID Allergen Name Allergen Category Reaction Reaction Severity Criticality Documentation Date Start Date Code Code System Note Provider Name and Address Organization Details Recorded Time 28778 codeine medicatio n vomiting Not available Not available 01/10/2023 2670 RxNorm Not Available [facility] 23:11:41 Medications Name Sig Start Date Stop Date Status Note LastModified by Organization Details LastModified Time accu-chek guide w/device kit 06/30 completed Not Available Not Available Not Available cyclobenzap rine 10 mg tablet TAKE ONE TABLET BY MOUTH TWICE A DAY NEEDED FOR MUSCLE SPASM. active Not Available Not Available No t Available amoxicillin 500 mg capsule TAKE 2 CAPSULES BY MOUTH TWICE DAILY 08/07 completed Not Available Not Available Not Available atorvastati n 40 mg tablet take one tablet BY MOUTH daily AT 9 p.m. 06/30 completed Not Available Not Available Not Available metformin 500 mg tablet active Not Available Not Available Not Available prednisone 10 mg tablet 06/30 completed Not Available Not Available Not Available gabapentin 600 mg tablet 06/30 completed Not Available Not Available Not Available doxycycline hyclate 100 mg capsule 06/30 completed Not Available Not Available Not Available carvedilol 12.5 mg tablet TAKE 1 TABLET BY MOUTH IN THE MORNING AND 1 IN THE EVENING WITH MEALS active Not Available Not Available No t Available ketoconazol e 2 % shampoo APPLY TO wet HAIR, LEAVE ON FOR THREE minutes THEN RINSE. USE three times WEEKLY as directed active Not Available Not Available No t Available tizanidine 2 mg tablet TAKE 1 TABLET BY MOUTH EVERY 6 HOURS 08/21 completed Not Available Not Available Not Available trazodone 50 mg tablet TAKE ONE TABLET BY MOUTH AT BEDTIME 06/30 completed Not Available Not Available Not Available lisinopril 20 mg-hydrochl orothiazide 12.5 mg tablet 08/21 completed Not Available Not Available Not Available oxybutynin chloride ER 10 mg tablet,exte nded release 24 hr 08/21 completed Not Available Not Available Not Available azithromyci n 250 mg tablet TAKE 2 TABLETS BY MOUTH ON DAY 1, AND THEN TAKE 1 TABLET BY MOUTH ONCE A DAY ON DAY 2 THROUGH DAY 5 08/21 completed Not Available Not Available Not Available ibuprofen 800 mg tablet 08/21 completed Not Available Not Available Not Available tizanidine 4 mg tablet TAKE 1 TABLET BY MOUTH ONCE DAILY 08/21 completed Not Available Not Available Not Available hydrocodone 5 mg-acetamin ophen 325 mg tablet TAKE ONE TABLET BY MOUTH TWICE DAILY 06/30 completed Not Available Not Available Not Available lisinopril 20 mg tablet take one tablet BY MOUTH daily active Not Available Not Available No t Available ondansetron HCl 4 mg tablet 06/30 completed Not Available Not Available Not Available bupivacaine HCl 0.5 % (5 mg/mL) injection solution Take 20 mg by injection route. 2023 active Not Available Not Available Not Avai lable prednisone 20 mg tablet TAKE TWO TABLETS BY MOUTH DAILY FOR FIVE DAYS 08/21 completed Not Available Not Available Not Available simvastatin 10 mg tablet TAKE ONE TABLET BY MOUTH EVERY EVENING 06/30 completed Not Available Not Available Not Available metformin 850 mg tablet TAKE ONE TABLET BY MOUTH TWICE A DAY 08/21 completed Not Available Not Available Not Available cyanocobala min (vit B-12) 1,000 mcg tablet TAKE ONE TABLET BY MOUTH UNDER THE TONGUE TWICE DAILY @ 9AM-5PM 06/30 completed Not Available Not Available Not Available chlorthalid one 25 mg tablet 08/21 completed Not Available Not Available Not Available ciprofloxac in 500 mg tablet TAKE 1 TABLET BY MOUTH EVERY 12 HOURS FOR 10 DAYS 08/21 completed Not Available Not Available Not Available sulfamethox azole 800 mg-trimetho prim 160 mg tablet TAKE ONE TABLET BY MOUTH EVERY 12 HOURS FOR 14 DAYS 08/07 completed Not Available Not Available Not Available Nicotrol 10 mg inhalation cartridge INHALE ONE CARTRIDGE 4 TIMES A DAY BY MOUTH NEEDED 08/21 completed Not Available Not Available Not Available tramadol 50 mg tablet TAKE 1 TABLET BY MOUTH EVERY 8 HOURS NEEDED 08/07 completed Not Available Not Available Not Available prednisone 10 mg tablets in a dose pack Take 1 tab by mouth, 3 times a day for 3 daysTake 1 tab by mouth 2 times a day for 2 daysTake 1 tab by mouth once a day for 1 day 06/30 completed Not Available Not Available Not Available meloxicam 7.5 mg tablet TAKE ONE TABLET BY MOUTH EVERY DAY NEEDED FOR PAIN 08/07 completed Not Available Not Available Not Available famotidine 20 mg tablet 06/30 completed Not Available Not Available Not Available Kenalog 10 mg/mL suspension for injection Take 20 mg by injection route. 2023 active [facility]: [phone] Not Available Not Available Not Available baclofen 10 mg tablet 08/07 completed Not Available Not Available Not Available hydrocodone 7.5 mg-acetamin ophen 325 mg tablet active Not Available Not Available No t Available cephalexin 500 mg capsule Take 1 capsule every 8 hours by oral route. 08/07 completed Not Available Not Available Not Available paroxetine 20 mg tablet TAKE 1 TABLET BY MOUTH ONCE DAILY 08/21 completed Not Available Not Available Not Available triamcinolo ne acetonide 0.1 % topical ointment APPLY APPLY THIN LAYER TO AFFECTED AREA TWICE DAILY 08/21 completed Not Available Not Available Not Available hydrochloro thiazide 12.5 mg capsule TAKE ONE CAPSULE BY MOUTH EVERY DAY 06/30 completed Not Available Not Available Not Available gabapentin 300 mg capsule TAKE ONE CAPSULE BY MOUTH TWICE DAILY 06/30 completed Not Available Not Available Not Available omeprazole 20 mg capsule,del ayed release TAKE ONE CAPSULE BY MOUTH DAILY AT 9AM 06/30 completed Not Available Not Available Not Available diclofenac sodium 75 mg tablet,jose miguel yed release TAKE 1 TABLET BY MOUTH TWICE DAILY 06/30 completed Not Available Not Available Not Available montelukast 10 mg tablet TAKE 1 TABLET BY MOUTH IN THE EVENING 08/21 completed Not Available Not Available Not Available furosemide 20 mg tablet TAKE 1 TABLET BY MOUTH EVERY DAY active Not Available Not Available No t Available gabapentin 100 mg capsule 06/30 completed Not Available Not Available Not Available lisinopril 10 mg-hydrochl orothiazide 12.5 mg tablet 08/07 completed Not Available Not Available Not Available ibuprofen 600 mg tablet TAKE 1 TABLET BY MOUTH EVERY 6 HOURS NEEDED WITH FOOD 08/21 completed Not Available Not Available Not Available methylpredn isolone 4 mg tablets in a dose pack active Not Available Not Available Not Available albuterol sulfate HFA 90 mcg/actuati on aerosol inhaler INHALE TWO puffs BY MOUTH EVERY EIGHT hours NEEDED FOR shortness of breath 06/30 completed Not Available Not Available Not Available SSD 1 % topical cream APPLY TO AFFECTED AREA(S) TWO TIMES A DAY. 08/07 completed Not Available Not Available Not Available oxybutynin chloride 5 mg tablet 08/07 completed Not Available Not Available Not Available clobetasol 0.05 % scalp solution APPLY topically TO THE affected AREA TWICE DAILY NEEDED active Not Available Not Available No t Available ondansetron 4 mg disintegrat ing tablet Take 1 tablet every 8 hours by oral route as needed. 06/30 completed Not Available Not Available Not Available metformin ER 500 mg tablet,exte nded release 24 hr TAKE TWO TABLETS BY MOUTH ONCE daily AT 5pm with evening meal 06/30 completed Not Available Not Available Not Available itraconazol e 100 mg capsule Take 1 capsule twice a day by oral route for 30 days. 10/24 completed Not Available Not Available Not Available atenolol 50 mg tablet TAKE 1 TABLET BY MOUTH IN THE EVENING active Not Available Not Available No t Available tamoxifen 20 mg tablet 08/07 completed Not Available Not Available Not Available naproxen 500 mg tablet TAKE 1 TABLET BY MOUTH TWICE DAILY WITH FOOD 08/21 completed Not Available Not Available Not Available mometasone 0.1 % topical cream 06/30 completed Not Available Not Available Not Available neomycin-po lymyxin-hyd rocort 3.5 mg-10,000 unit/mL-1 % ear drops,susp 06/30 completed Not Available Not Available Not Available escitalopra m 10 mg tablet TAKE 1 TABLET BY MOUTH EVERY DAY IN THE MORNING 06/30 completed Not Available Not Available Not Available escitalopra m 20 mg tablet TAKE ONE TABLET BY MOUTH EVERY MORNING active Not Available Not Available No t Available cyclobenzap rine 5 mg tablet TAKE ONE TABLET BY MOUTH THREE TIMES A DAY NEEDED FOR SPASMS active Not Available Not Available No t Available duloxetine 30 mg capsule,del ayed release 06/30 completed Not Available Not Available Not Available duloxetine 60 mg capsule,del ayed release TAKE ONE CAPSULE BY MOUTH DAILY AT 5PM active Not Available Not Available No t Available tizanidine 2 mg capsule TAKE 1 CAPSULE BY MOUTH EVERY 6 HOURS 06/30 completed Not Available Not Available Not Available fenofibrate 160 mg tablet TAKE ONE TABLET BY MOUTH EVERY DAY AT 9pm active Not Available Not Available No t Available cholecalcif yesy (vitamin D3) 25 mcg (1,000 unit) tablet TAKE ONE TABLET BY MOUTH DAILY AT 9AM WITH FOOD 06/30 completed Not Available Not Available Not Available Symbicort 160 mcg-4.5 mcg/actuati on HFA aerosol inhaler inhale TWO puffs BY MOUTH TWICE DAILY rinse MOUTH with water AFTER USE AND spit 06/30 completed Not Available Not Available Not Available Locoid 0.1 % lotion 08/07 completed Not Available Not Available Not Available ropivacaine (PF) 5 mg/mL (0.5 %) injection solution Take 20 mg by injection route. 06/30 completed [facility] [phone] Not Available Not Available Not Available Combivent Respimat 20 mcg-100 mcg/actuati on solution for inhalation INHALE 1 PUFF BY MOUTH 4 TIMES DAILY NEEDED FOR WHEEZING 08/21 completed Not Available Not Available Not Available Pennsaid 20 mg/gram/act uation (2 %) topical soln in metered-dos e pump apply two pumps (40 MG) TO THE affected knee(s) topically TWICE DAILY 06/30 completed Not Available Not Available Not Available Accu-Chek Guide test strips TEST ONCE A DAY 06/30 completed Not Available Not Available Not Available Mounjaro 7.5 mg/0.5 mL subcutaneou s pen injector 06/30 completed Not Available Not Available Not Available Mounjaro 5 mg/0.5 mL subcutaneou s pen injector 06/30 completed Not Available Not Available Not Available Mounjaro 10 mg/0.5 mL subcutaneou s pen injector active Not Available Not Available Not Available Mounjaro 2.5 mg/0.5 mL subcutaneou s pen injector 06/30 completed Not Available Not Available Not Available Vitals Date Recorded Body height Body mass index (BMI) Body weight Provider Name and Address Organization Details Last Updated DateTime 08/07/2023 157.48 cm 31.1 kg/m2 19744.7 g Hiwot Ríos [facility] 08/07/2023 09:57:45 Date Recorded Body height Body mass index (BMI) Body weight Pain severity - 0-10 verbal numeric rating [Score] - Reported Provider Name and Address Organization Details Last Updated DateTime 10/24/2023 157.48 cm 32 kg/m2 95262.66 g Thomas Good [facility] 10/24/2023 13:48:19 Date Recorded Body height Body mass index (BMI) Body weight Pain severity - 0-10 verbal numeric rating [Score] - Reported Provider Name and Address Organization Details Last Updated DateTime 12/10/2023 157.48 cm 31.1 kg/m2 60769.7 g Thomas Good [facility] 12/10/2023 09:56:34 Date Recorded Body height Body mass index (BMI) Body weight Provider Name and Address Organization Details Last Updated DateTime 01/08/2024 154.94 cm 32.1 kg/m2 45418.7 g 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 [employer] 05/21/2023 08:58:28 What Is Your Level Of Alcohol Consumption? 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 Mental Status None recorded. Family History Nothing Reported. Medical History Condition Response DIABETES, TYPE Y HYPERTENSION Y Gynecological HistoryNo gynecological history recorded. Obstetrics History GPAL:G 0 P 0 0 0 0 Immunizations Vaccine Type Date Status Note Provider Nam e and Address Organization Details Recorded Time Influenza, split virus, trivalent, PF 3 completed Not Available [facility] 12/27/2023 10:00:40 pneumococcal polysaccharide PPV23 2 completed Not Available [facility] 12/27/2023 10:00:40 Tdap 2 completed Not Available [facility] 12/27/2023 10:00:40 COVID-19, mRNA, LNP-S, PF, 30 mcg/0.3 mL dose 1 completed Not Available [facility] 12/27/2023 10:00:40 COVID-19, mRNA, LNP-S, PF, 30 mcg/0.3 mL dose 1 completed Not Available [facility] 12/27/2023 10:00:40 Influenza, split virus, quadrivalent, preservative 9 completed Not Available [facility] 12/27/2023 10:00:40 Past Encounters Encounter ID Performer Location Encounter Start Date Encounter Closed Date Diagnosis/Indication Diagnosis SNOMED-CT Code Diagnosis ICD10 Code Diagnosis Note [id number] Ernesto Norton MD [facility] [place] [address] [place] [address] 05/21/2023 08:38:36 05/21/2023 10:40:23 Low back pain 295083644 M54.50 Spinal tereso nosis of lumbar region 73047491 M48.061 Pain in ri ght sacroiliac joint 7037260672 6099394 M53.3 [id number] Ernesto Norton MD [address] [address] 06/19/2023 09:29:34 06/19/2023 10:09:16 Low back pain 907622551 M54.50 Spinal tereso nosis of lumbar region 86223742 M48.061 Pain in ri ght sacroiliac joint 4811155896 8812530 M53.3 [id number] Ernesto Norton MD [address] [address] 07/17/2023 09:34:42 07/17/2023 10:28:30 Low back pain 820182475 M54.50 Spinal tereso nosis of lumbar region 27680957 M48.061 Pain in ri ght sacroiliac joint 2310500259 1574002 M53.3 [id number] Ernesto Norton MD [address] [address] 08/07/2023 09:53:19 08/07/2023 10:17:31 Pain in right sacroiliac joint 9257240917 3744796 M53.3 [id number] Felipa Quesada, [place] [facility] [place] [address] [place] [address] 10/24/2023 13:44:19 10/24/2023 14:20:15 Pain of right shoulder joint 1226222164 6218844 M25.618 [id number] Felipa Quesada, [place] [facility] [address] [address] 12/10/2023 09:49:14 12/10/2023 10:15:20 Pain of right shoulder joint 0204257440 5622794 M25.381 [id number] MARYELLEN Orozco [facility] [place] [address] [place] [address] 01/08/2024 10:43:55 01/08/2024 11:38:00 Pain in right sacroiliac joint 7591269079 8697515 M53.3 Low back pain 480262624 M54.50 Lumbar radiculopathy 128 614947 M54.16 Lumbar spondylosis 83006 0009 M47.746 [id number] MARYELLEN Orozco [facility] [place] [address] [facility] [place] [address] 06/30/2024 09:28:03 06/30/2024 10:35:16 Pain in right sacroiliac joint 2134322500 6002762 M53.3 Low back pain 777263550 M54.50 Lumbar spondylosis 71037 0009 M47.896 Lumbar radiculopathy 128 454364 M54.16 Health Concerns Section Related Observation LastModified by Organization Detai ls LastModified Time None Recorded Concern Status LastModified by Organization Details LastModified Time None Recorded Advance Directives Directive None Recorded Payers Encounter Date Sequence Insurance Name Policy Number Policy Viveros Covered Member ID Viveros Member ID Guarantor Name 08/07/2023 1 [facility] (MEDICARE REPLACEMENT/A DVANTAGE - PPO) [id number] Madeline Puentes [id number] Madeline Puentes 10/24/2023 1 [facility] (MEDICARE REPLACEMENT/A DVANTAGE - PPO) [id number] Madeline Puentes [id number] Madeline Puentes 12/10/2023 1 [facility] (MEDICARE REPLACEMENT/A DVANTAGE - PPO) [id number] Madeline Puentes [id number] Madeline Puentes 01/08/2024 1 [facility] (MEDICARE REPLACEMENT/A DVANTAGE - PPO) [id number] Madeline Puentes [id number] Madeline Puentes 06/30/2024 1 [facility] (MEDICARE REPLACEMENT/A DVANTAGE - PPO) [id number] Madeline Puentes [id number] Madeline Puentes Notes Date Note Type Note Provider Name and Address Organization Details Recorded Time 08/07/2023 text/html Patient returns hip and back pain right. She has a fairly arthritic spine has had surgery before and has inflammation sacroiliac region. She seemingly has responded to the last injection and therapy and is doing well at this point. Ernesto Norton MD [address], [place], [address], [facility] 08/07/2023 10:15:11 01/08/2024 text/html the patient is a 68-year-old female who presents with a chronic history of low back pain. She states recently it has been much worse the only relief she gets is when she is able to lie down. She has trouble ambulating and getting around she has aching pain throughout the lumbar spine she has a fairly arthritic spine with scoliotic curvature noted on previous x-ray. She has some subluxation of the vertebral bodies as well. She was last seen by Dr. Norton July of 2023 shot of cortisone the right sacroiliac region gave her some relief. She states that she is tired of living with her back she has had chronic issues with it had previous surgical intervention years ago. , there is no hardware present she is not exactly sure what they did with her back at that time. She now complains of radicular pain down the right leg with some numbness and tingling and pain and aching denies any weakness no bowel or bladder symptoms at this time. Denies any new trauma or injury to her back she states she is miserable all the time with a 8 on a pain scale of 1-10. She comes in today for further evaluation and treatment. She has not had an MRI scan of her back recently. She currently takes hydrocodone a couple of times a day she has taken this chronically states this is not helping much either. She also has taken diclofenac without significant relief. MARYELLEN Orozco [address], [place], [address], [facility] [employer] [facility] [employer] 01/08/2024 11:40:55 06/30/2024 text/html Patient returns with back pain mostly in the right sacroiliac region. 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 She had previous surgical intervention many years ago she denies any bowel or bladder symptoms no weakness but she does have some numbness and tingling as described. She comes in today asking for a shot of cortisone right sacroiliac region this helped quite a bit on her last visit 6 months ago.A new past medical history sheet was reviewed and signed on intake sheet of today's date drug allergies current medications family social history previous surgical history 10 point review of systems was reviewed and discussed in detail today with the patient. MARYELLEN Orozco [address] [facility], [facility] [address], [place], [address], [facility] [employer] 06/30/2024 10:41:53 OBGyn Episode No OBEpisode recorded.
--- OUTSIDE RECORDS SUMMARY | 2025-01-07 15:06 | XMS_ITS | Clinical Summary ---
Author Organization [facility] [employer] Address [address] [place] [address] Care Team Providers Care Government Contracts Manager Name Role Phone Aravind Bird MD Primary Care Provider [phone] Source Comments [facility] [employer],non-owned Affiliates and Associated Physician Practices is amultiple site organization consisting of ambulatory clinics and hospital sitesin [place], [place], [place] and [place]. This disclosure is being madepursuant to the Care Everywhere program and may not contain all information available regarding this patient. Last updated 18.[facility] [employer] Allergies Active Allergy Reactions Criticality Noted Date Comments Codeine Vomiting 06/06/2024 Medications * Be aware that medications may not be up to date on this document. Alwaysverify current medications with the patient. Medication Sig Dispensed Refills Start Date End Date Status PARoxetine (PAXIL) 20 MG tablet Take 1 tablet by mouth once daily 30 tablet 2 10/10/2021 Active Additional Information Patient not taking.Reported on 06/14/2022 omeprazole (PRILOSEC) 20 MG capsule Take 20 mg by mouth once daily 12/28/2020 Active montelukast (SINGULAIR) 10 MG tablet Take 10 mg by mouth once daily 06/25/2020 Active albuterol-ipratro pium (COMBIVENT RESPIMAT) 20-100 MCG/ACT inhaler Inhale 1 puff by mouth 4 times daily 09/28/2020 Active fenofibrate (LOFIBRA) 160 MG tablet Take 160 mg by mouth once daily 05/28/2020 Active DULoxetine (CYMBALTA) 60 MG capsule Take 1 capsule by mouth once daily 07/09/2021 Active atorvastatin (LIPITOR) 40 MG tablet Take 40 mg by mouth once daily 05/28/2020 Active aspirin (ASPIRIN) 81 MG chew tablet Take 81 mg by mouth once daily Active amoxicillin (AMOXIL) 500 MG capsule 05/26/2022 Active metFORMIN ER 24hr (GLUCOPHAGE XR) 500 MG tablet TAKE 2 TABLETS BY MOUTH ONCE DAILY AT 5PM WITH EVENING MEAL 05/26/2022 Active ketoconazole (Nizoral) 2 % shampooIndication s:Other seborrheic dermatitis Apply to wet hair, leave on for 3 minutes, then rinse; three times weekly. 30 days supply 120 mL 3 04/12/2023 Active albuterol HFA (Proventil; Ventolin; Proair) 108 (90 Base) MCG/ACT inhaler Inhale 2 (two) puffs by mouth every 6 hours as needed for Shortness of Breath, Wheezing or Cough Active azithromycin (Zithromax) 500 MG tablet Take 1 (one) tablet by mouth once daily Active bisacodyl EC (Dulcolax) 5 MG tablet Take 1 (one) tablet by mouth pre-Procedure once 09/11/2023 Active Blood Glucose Monitoring Suppl (Accu-Chek Guide) w/Device KIT as directed 01/30/2024 Active Symbicort 160-4.5 MCG/ACT inhaler Inhale 2 (two) puffs by mouth 2 times daily 09/06/2022 Active carvedilol (Coreg) 12.5 MG tablet Take 1 (one) tablet by mouth 2 times daily with morning and evening meal 10/23/2022 Active Cholecalciferol 50 MCG (2000 UT) Take 1 (one) tablet by mouth once daily 04/01/2024 04/01/2025 Active cyclobenzaprine (Flexeril) 5 MG tablet Take 1 (one) tablet by mouth 3 times daily as needed Active diclofenac sodium EC (Voltaren) 75 MG tablet Take 1 (one) tablet by mouth as directed 07/26/2023 Active Pennsaid 2 % topical solution Apply 2 (two) Pump to affected area 2 times daily Active doxycycline hyclate (Vibramycin) 100 MG capsule Take 1 (one) capsule by mouth 2 times daily Active escitalopram (Lexapro) 10 MG tablet Take 1 (one) tablet by mouth once daily Active escitalopram (Lexapro) 20 MG tablet Take 1 (one) tablet by mouth once daily Active famotidine (Pepcid) 20 MG tablet Take 1 (one) tablet by mouth 2 times daily Active Accu-Chek Guide test strip Use 1 (one) strip as directed 01/30/2024 Active furosemide (Lasix) 20 MG tablet Take 1 (one) tablet by mouth once daily Active hydroCHLOROthiazi de (Microzide) 12.5 MG capsule Take 1 (one) capsule by mouth once daily Active HYDROcodone-aceta minophen ([place]) 5-325 MG tablet Take 1 (one) tablet by mouth 2 times daily as needed for Pain Active HYDROcodone-aceta minophen ([place]) 7.5-325 MG tablet Take 1 (one) tablet by mouth 2 times daily as needed for Pain Active mometasone (Elocon) 0.1 % cream Apply to affected area as directed Active naproxen (Naprosyn) 500 MG tablet Take 1 (one) tablet by mouth 2 times daily as needed for Pain 06/17/2022 Active neomycin-polymyxi n-hc (Cortisporin) 3.5-78777-9 otic suspension Instill 1 (one) drop into both ears as directed Active ondansetron, disintegrating, (Zofran ODT) 4 MG tablet Take 1 (one) tablet by mouth every 6 hours as needed for Nausea/Vomiting Active ondansetron (Zofran) 4 MG tablet Take 1 (one) tablet by mouth every 6 hours as needed for Nausea/Vomiting Active predniSONE (Deltasone) 10 MG tablet Take 1 (one) tablet by mouth as directed Active predniSONE (Deltasone) 20 MG tablet Take 2 (two) tablets by mouth once daily 07/31/2022 Active proparacaine (Alcaine) 0.5 % ophthalmic solution Instill 1 (one) drop into right eye 3 times daily Active simvastatin (Zocor) 10 MG tablet Take 1 (one) tablet by mouth every evening Active tirzepatide (Mounjaro) 2.5 MG/0.5ML injection Inject 2.5 (two and one-half) mg subcutaneously every 7 days Active Mounjaro 5 MG/0.5ML injection Inject 5 (five) mg subcutaneously every 7 days Active Mounjaro 7.5 MG/0.5ML injection Inject 7.5 (seven and one-half) mg subcutaneously every 7 days Active tiZANidine (Zanaflex) 2 MG capsule Take 1 (one) capsule by mouth every 6 hours as needed for Muscle Spasms Active traZODone (Desyrel) 50 MG tablet Take 1 (one) tablet by mouth at bedtime Active triamcinolone acetonide (Kenalog) 0.1 % cream Apply to affected area as directed Active atenolol (Tenormin) 50 MG tablet Take 1 (one) tablet by mouth once daily Active clobetasol (Temovate) 0.05 % solution Apply to affected area 2 times daily as needed Active DULoxetine (Cymbalta) 30 MG capsule Take 1 (one) capsule by mouth once daily 02/06/2024 Active gabapentin (Neurontin) 100 MG capsule Take 1 (one) capsule by mouth at bedtime Active gabapentin (Neurontin) 300 MG capsule Take 1 (one) capsule by mouth 2 times daily Active gabapentin (Neurontin) 600 MG tablet Take 1 (one) tablet by mouth 3 times daily 04/02/2023 Active lisinopril (Prinivil; Zestril) 20 MG tablet Take 1 (one) tablet by mouth once daily Active methylPREDNISolon e (Medrol Dosepak) 4 MG tablet Take by mouth as directed <!--EPICS-->Follow package insert dosing for six day supply.<!--EPICE--> 21 tablet 06/19/2024 Active cyclobenzaprine (Flexeril) 10 MG tablet Take 1 (one) tablet by mouth 3 times daily as needed for Muscle Spasms 30 tablet 06/19/2024 Active BUPivacaine (Marcaine) 0.5 % injection Use as instructed once 06/30/2024 Active Mounjaro 10 MG/0.5ML injection Inject 10 (ten) mg subcutaneously every 7 days Active triamcinolone acetonide (Kenalog-10) injection Inject 1 mL into muscle once 06/30/2024 Active Active Problems Problem Noted Date Diagnosed [...] 05/03/2023 Muscle pain 04/02/2023 Musculoskeletal pain 10/22/2022 Overview (06/06/2024): RUE/RLE/lower back Vitamin D deficiency 10/22/2022 Overview (06/06/2024): B12 Chronic depression 08/01/2022 Muscle strain of right [...] nicotine dependence 09/28/20 20 Tobacco abuse 09/28/2020 Overview (06/06/2024): quit December 24, 2021 Dyspnea 09/28/2020 Obesity 09/28/2020 Hyperlipidemia 06/05/2019 Nonspecific [...] 09/0 04/2024 Otitis externa 06/02/2021 07/18/2024 Immunizations Name Administration Dates Next Due INFLUENZA VACCINE, TRIV. (AF LURIA, FLUZONE TRIVALENT; 6MO+) (IIV3) 08/08/2019,07/13/2019,08/19/2014 Covid Moderna primary monova lent 12+ yr 0.5mL 01/25/2021 FLU VACCINE QUAD IIV4 SPLIT 0.25 ML IM 09/06/2022,12/19/2018,08/28/2017,2015,08/31/2015 FLU VACCINE TRI IIV3 SPLIT P F IM (FLUVIRIN) 09/24/2013 INFLUENZA VACCINE 09/07/2021, 0,08/08/2019,2018,12/19/2018,08/28/2017,08/28/2017,1 ,08/23/2016,08/31/2015, 015,08/24/2014,08/19/2014 INFLUENZA VACCINE, ADJUVANTE D, QUADR. (FLUAD QUADRIVALENT; 65Y+) (AIIV4) 08/11/2020 INFLUENZA VACCINE, CELL CULT URE, QUADR. (FLUCELVAX QUADRIVALENT; 6MO+), 0.5 ML (CCIIV4) 08/11/2020 PNEUMOCOCCAL PPSV23 02/21/2022 Pneumococcal Pcv13 Conj 09/13/2015 TDAP (7yrs+) 02/21/2022 Zoster Hzv Vacc Recombinant Inj Im 11/26,11/26/2020,09/20/2020,2019,08/11/2020 Family History Medical History Relation Name Comments Hypertension Father Renal Disease Father Diabetes; unknown type Mother Hypertension Mother Renal Disease Mother Relation Name Status Comments Father Mother Social History Tobacco Use Types Packs/Day Years Used Date Smoking Tobacco: Never Smokeless Tobacco: Never Tobacco Cessation:Counseling Given: Not Answered Sex and Gender Information Value Date Recorded Sex Assigned at Not on file Gender Identity Not on file Sexual Orientation Not on file Last Filed Vital Signs Vital Sign Reading Time Taken Comments Blood Pressure 152/88 10/11/2021 10:02 AM HOME HEALTH BILLING SPECIALIST Pulse 84 10/11/2021 10:02 AM HOME HEALTH BILLING SPECIALIST Temperature 36.3 C (97.3 F) 10/11/2021 10:02 AM HOME HEALTH BILLING SPECIALIST Respiratory Rate 18 10/11/2021 10:0 2 AM HOME HEALTH BILLING SPECIALIST Oxygen Saturation 99% 10/11/2021 10: 02 AM HOME HEALTH BILLING SPECIALIST Inhaled Oxygen Concentration - - Weight 73.4 kg (161 lb 12.8 oz) 024 10:50 AM CDT Height 154.9 cm (5' 1 ) 10/11/2021 10:0 2 AM HOME HEALTH BILLING SPECIALIST Body Mass Index 30.57 10/11/2021 10:02 AM HOME HEALTH BILLING SPECIALIST Plan of Treatment Health Maintenance Due Date Last Done Comments COLON MONITORING 1955 COLONOSCOPY - COLON CA SCREENING 1955 CT COLONOGRAPHY - COLON CA SCREENING 1955 FIT - COLON CA SCREENING 1955 FLEX SIG - COLON CA SCREENING 1955 HEPATITIS C SCREENING 01/31/1973 Respiratory Syncytial Virus (RSV) Vaccine Pt: or over 60 yrs (1 - Risk 60-74 years 1-dose series) 2015 DIABETES RETINOPATHY SCREENING 11/28/2021 DIABETES-FOOT EXAM WITH MONOFILAMENT 11/28/2021 MAMMOGRAM 03/14/2023 03/14/2021 COVID-19 VACCINE ( season) 2024 01/25/2021, 01/25/2021, 01/02/2021 INFLUENZA VACCINE (#1) 2024 2, 09/07/2021, 08/11/2020, Additional history exists COLOGUARD (AGES 45-75) - COLON CA SCREENING 07/19/2024 07/19/2021, 07/19/2021 Colorectal Cancer Screening 07/19/2024 DIABETES-HGB A1C 09/14/2024 03/14/2024, , 06/02/2021 DEPRESSION SCREENING 11/12/2024 DIABETES - URINE PROTEIN SCREENING 11/12/2024 MEDICARE AWV CALENDAR YEAR 2024 DIABETES-SERUM CREATININE 03/14/2025 03/14/2024 DTAP/TDAP/TD VACCINES (2 - Td or Tdap) 02/22/2032 02/21/2022 ZOSTER VACCINE Completed 11/26/2020, 11/12, 09/20/2020, Additional history exists PNEUMOCOCCAL VACCINE 50+ Completed 02/21/2022, 12/2014 BONE DENSITY TESTING Completed 07/26/2022 HEPATITIS B VACCINE Aged Out No longe r eligible based on patient's age to complete this topic HIB VACCINE Aged Out No longer eligi ble based on patient's age to complete this topic HPV VACCINE Aged Out No longer eligi ble based on patient's age to complete this topic MENINGOCOCCAL (Group B) VACCINE Aged Out No longer eligible based on patient's age to complete this topic MENINGOCOCCAL VACCINE Aged Out No maribel kennedi eligible based on patient's age to complete this topic Care Teams Government Contracts Manager Relationship Specialty Start Date End Date Aravind Bird MD [address] [place] [address] PCP - General 04/06/22
--- OUTSIDE RECORDS SUMMARY | 2025-01-07 15:06 | XMS_ITS | Referral Summary ---
Author Organization [facility] Address [address] [facility] [place] [address] Care Team Providers Care Picture Enlarger Name Role Phone Aravind Bird MD Primary Care Provider [phone] Source Comments [facility],non-owned Affiliates and Associated Physician Practices is amultiple site organization consisting of ambulatory clinics and hospital sitesin [place], [place], [place] and [place]. This disclosure is being madepursuant to the Care Everywhere program and may not contain all information available regarding this patient. Last updated 18.[facility] Allergies Active Allergy Reactions Criticality Noted Date [...] by mouth once daily Active HYDROcodone-aceta minophen ([place]) 5-325 MG tablet Take 1 (one) tablet by mouth 2 times daily as needed for Pain Active HYDROcodone-aceta minophen ([place]) 7.5-325 MG tablet Take 1 (one) tablet by mouth 2 times daily as needed for Pain Active mometasone (Elocon) 0.1 % cream Apply to affected area as directed Active naproxen (Naprosyn) 500 MG tablet Take 1 (one) tablet by mouth 2 times daily as needed for Pain 06/17/2022 Active neomycin-polymyxi n-hc (Cortisporin) 3.5-47757-6 otic suspension Instill 1 (one) drop into [...] Zoster Hzv Vacc Recombinant Inj Im 11/26,11/26/2020,09/20/2020,2019,08/11/2020 Social History Tobacco Use Types Packs/Day Years Used Date Smoking Tobacco: Never Smokeless Tobacco: Never Tobacco Cessation:Counseling Given: Not Answered Sex and Gender Information Value Date Recorded Sex Assigned at Not on file Gender Identity Not on file Sexual Orientation Not on file Last Filed Vital Signs Vital Sign Reading Time Taken Comments Blood Pressure 152/88 10/11/2021 10:02 AM VOLLEYBALL COACH Pulse 84 10/11/2021 10:02 AM VOLLEYBALL COACH Temperature 36.3 C (97.3 F) 10/11/2021 10:02 AM VOLLEYBALL COACH Respiratory Rate 18 10/11/2021 10:0 2 AM VOLLEYBALL COACH Oxygen Saturation 99% 10/11/2021 10: 02 AM VOLLEYBALL COACH Inhaled Oxygen Concentration - - Weight 73.4 kg (161 lb 12.8 oz) 024 10:50 AM CDT Height 154.9 cm (5' 1 ) 10/11/2021 10:0 2 AM V[employer]LEYBALL COACH Body Mass Index 30.57 10/11/2021 10:02 AM VOLLEYBALL COACH Plan of Treatment Not on file Care Teams Picture Enlarger Relationship Specialty Start Date End Date Aravind Bird MD [address] [place] [address] PCP - General 04/06/22
--- OUTSIDE RECORDS SUMMARY | 2025-01-07 15:06 | XMS_ITS | Referral Summary ---
Author Organization [place] [address] [facility] Address [address] [place] [address] Care Team Providers Care Customer Care Coordinator Name Role Phone Ghassan Rutledge MD Primary Care Provider [phone] Allergies No known active allergies Medications atenoloL (TENORMIN) 50 mg tablet Take 50 mg by mouth daily 0 Active atorvastatin (LIPITOR) 40 mg tablet Take 40 mg by mouth nightly at bedtime 0 Active gabapentin (NEURONTIN) 300 mg capsule Take 300 mg by mouth 3 (three) times a day 0 Active PARoxetine (PAXIL) 20 mg tablet Take 20 mg by mouth daily 0 Active metFORMIN XR (GLUCOPHAGE XR) 500 mg 24 hr tablet Take 500 mg by mouth 2 (two) times a day 0 Active fenofibrate (TRIGLIDE) 160 mg tablet Take 160 mg by mouth nightly at bedtime [address] (CYMBALTA) 30 mg capsule Take 30 mg by mouth daily 0 Active HYDROcodone-acetam inophen (NORCO) 5-325 mg per tablet TAKE ONE TABLET BY MOUTH TWICE DAILY NEEDED FOR PAIN 0 Active Ventolin HFA 90 mcg/actuation inhaler INHALE TWO PUFFS EVERY 4 TO 6 HOURS NEEDED 0 Active lisinopriL (PRINIVIL,ZESTRIL) 20 mg tablet Take 20 mg by mouth daily 0 Active montelukast (SINGULAIR) 10 mg tablet 0 Active tiZANidine (ZANAFLEX) 2 mg tablet 0 Active ipratropium-albute roL (COMBIVENT RESPIMAT) 20-100 mcg/actuation inhalerIndications :Chronic Obstructive Pulmonary Disease with Bronchospasms Inhale 1 puff 4 (four) times a day as needed for wheezing 4 g 11 0 Active buPROPion SR (ZYBAN) 150 mg 12 hr tablet Take 150 mg by mouth 2 (two) times a day 1 Active cephalexin (KEFLEX) 500 mg capsule 1 CAPSULE By Mouth Twice a day FOR 10 DAYS 1 Active diazePAM (VALIUM) 5 mg tablet Take 5 mg by mouth daily as needed 1 Active omeprazole (PriLOSEC) 20 mg capsule take 1 capsule by oral route every day before a meal 1 Active azithromycin (ZITHROMAX) 250 mg tablet 1 Active nicotine polacrilex (NICORETTE) 2 mg gumIndications: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 Chew 1 each (2 mg total) as needed for smoking cessation 100 each 1 1 Active Active Problems Problem Noted Date Diagnosed Date TU (obstructive sleep apnea) 09/28/2020 Obesity 09/28/2020 Tobacco abuse 09/28/2020 Dyspnea 09/28/2020 Personal history of nicotine dependence 09/28/20 Diabetes mellitus 01/04/2017 Immunizations Immunization Administration Dates Next Due Influenza LAIV (Nasal) 12/19/2018,2016,08/23/2016,08/31 Influenza, Quad, Adjuvantate d, Intramuscular 08/11/2020 Influenza, Quadrivalent, Spl it, Intramuscular 12/19/2018,08/28/2017,08/23/2016,08/31 Influenza, Split 08/08/2019 Influenza, Trivalent, IM (MDV) 07/13/2019,2013 Influenza, Unspecified 08/24/2014 Pneumococcal Conjugate PCV 13 09/13/2015 ZOSTER Recombinant 09/20/2020,08/11/2020 Social History Tobacco Use Types Packs/Day Years Used Date Smoking Tobacco: Former Cigarettes 1 45 1 970 - 2015 Smokeless Tobacco: Never Personal Safety Answer Date Recorded Getting School Help Needed Not on file 03/02 /2024 Comments Unknown Sex and Gender Information Value Date Recorded Sex Assigned at Not on file Legal Sex Female 8:18 AM CDT Gender Identity Not on file Sexual Orientation Not on file Last Filed Vital Signs Vital Sign Reading Time Taken Comments Blood Pressure 191/89 09/21/2022 10:00 PM [facility] Pulse 78 09/21/2022 10:00 PM [facility] Temperature 36.7 C (98 F) 09/21/2022 6:42 PM [facility] Respiratory Rate 18 09/21/2022 10:00 PM [facility] Oxygen Saturation 97% 09/21/2022 10:00 PM [facility] Inhaled Oxygen Concentration - - Weight 77.1 kg (170 lb) 09/21/2022 6:42 PM [facility] Height 157.5 cm (5' 2 ) 09/21/2022 6:42 PM [facility] Body Mass Index 31.09 09/21/2022 6:42 PM [facility] Plan of Treatment Not on file Insurance MEDICARE [facility] IDPA MEDICARE [place] MEDICARE [facility] MEDICARE [facility] [address] [address] Care Teams Customer Care Coordinator Relationship Specialty Start Date End Date Ghassan Rutledge MD [place] [address] PCP - General Family Medicine 03/01/21
--- OUTSIDE RECORDS SUMMARY | 2025-01-07 15:06 | XMS_ITS | Clinical Summary ---
Author Organization [place] [id number] [facility] Address [facility] [place] [address] Care Team Providers Care Psychologist Personnel Name Role Phone Ghassan Rutledge MD Primary Care Provider [phone] Allergies No known active allergies Medications atenoloL [...] Conjugate PCV 13 09/13/2015 ZOSTER Recombinant 09/20/2020,08/11/2020 Surgical History Surgery Date Site/Laterality Comments TOTAL KNEE ARTHROPLASTY Bilateral BACK SURGERY BREAST BIOPSY 10/18/2018 Left Medical History Medical History Date Comments HTN (hypertension) DM2 (diabetes mellitus, type 2) (HCC) CKD (chronic kidney disease) TU (obstructive sleep apnea) 09/28/2020 Obesity 09/28/2020 Tobacco abuse 09/28/2020 Dyspnea 09/28/2020 Family History Medical History Relation Name Comments Kidney disease Father Kidney disease Mother Relation Name Status Comments Father Mother Social History Tobacco Use Types Packs/Day Years Used Date Smoking Tobacco: Former Cigarettes 1 45 1 970 - 2015 Smokeless Tobacco: Never Personal Safety Answer Date Recorded Getting School Help Needed Not on file 01/11 Comments Unknown Sex and Gender Information Value Date Recorded Sex Assigned at Not on file Legal Sex Female 8:18 AM CDT Gender Identity Not on file Sexual Orientation Not on file Obstetrics History Last Filed Vital Signs Vital Sign Reading Time Taken Comments Blood Pressure 191/89 09/21/2022 10:00 PM [facility] Pulse 78 09/21/2022 10:00 PM [facility] Temperature 36.7 C (98 F) 09/21/2022 6:42 PM [facility] Respiratory Rate 18 09/21/2022 10:00 PM [facility] Oxygen Saturation 97% 09/21/2022 10:00 PM [facility] Inhaled Oxygen Concentration - - Weight 77.1 kg (170 lb) 09/21/2022 6:42 PM [facility] Height 157.5 cm (5' 2 ) 09/21/2022 6:42 PM [facility] Body Mass Index 31.09 09/21/2022 6:42 PM [facility] Plan of Treatment Health Maintenance Due Date Last Done Comments Albumin Creatinine Ratio, Urine 1955 Breast Cancer Screening-Mammogram 1955 Colon Cancer Screening-Colonoscopy 1955 Depression Screening 1955 Fall Risk Assessment 1955 Hemoglobin A1C 1955 Hepatitis C Screening 1955 eGFR 1955 Dilated Eye Exam 1955 Foot Exam 1955 DTaP/Tdap/Td Vaccine (1 - Tdap) 1966 Hepatitis B Screening 1973 Pneumococcal vaccine 65+ (2 of 2 - PPSV23) 11/08/2015 09/13/2015 Well Visit 65+ 02/06/2020 Lipid Panel 07/04/2023 07/04/2022, 03/0 11/2020, 04/20/2020 Influenza Vaccine (#1) 2024 , 08/11/2020, 08/08/2019, Additional history exists Osteoporosis Screening-Bone Density Scan 07/26/2024 07/26/2022 Zoster Vaccine Completed 11/26/2020, 1107/2020, 08/11/2020 Insurance MEDICARE [facility] IDPA MEDICARE [place] MEDICARE [facility] Address: [address] [address] [place] [address] MEDICARE [facility] Address: [address] [address] [facility] Care Teams Psychologist Personnel Relationship Specialty Start Date End Date Ghassan Rutledge MD [address] [place] [address] PCP - General Family Medicine 03/01/21
--- OUTSIDE RECORDS SUMMARY | 2025-01-07 15:06 | XMS_ITS | Data Portability ---
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 Has not had a high amount of sexual partners and no history of STIs. Has never had a positive HPV or abnormal PAP. Is somewhat behind on PAPs but has never had an abnormal one and last one in 2014 was normal. We discussed her risk and felt that it would probably be reasonable for her to stop getting PAPs at this time. Will discuss again at her next women's health visit in one year. [email or web address] Not available 09/17/2023 13:00:25 Plan of Treatment Reminders Order Date Submit Date Provider Last Modified By Organization Details Last Modified Time Details Appointments ANY 15 2024 10:45A M Moo Appiah MD Not available Not available Not available Lab None recorde d. Referral orthope dic surgeon referra l 2023 024 [facility], [address] [facility], [facility] [address], [place], [address], 01/16/2024 13:04:19 orthope dic surgeon referra l 2022 023 [facility] [address] [facility], [facility] [facility] [address], [place], [address], 01/16/2024 13:02:41 orthope dic surgeon referra l 2022 023 [facility], [address], [place], [address], 01/16/2024 13:02:42 Procedures None recorde d. Surgeries None recorde d. Imaging LDCT, chest, for lung cancer screeni ng - let us know is pt needs a reg ct 2022 023 [facility] ([facility]), [address] [place], [address], 04/16/2024 11:45:50 Medication Orders gabapen tin 100 mg capsule 2023 024 [facility]38, [address], [place], [id number], 09/29/2024 11:03:56 hydroco done 7.5 mg-acet aminoph en 325 mg tablet 2023 024 [facility]97222, [address], [place], [id number], 05/07/2024 12:41:39 gabapen tin 100 mg capsule 2023 024 [facility], [address], [place], [id number], 05/07/2024 12:40:31 duloxet ine 30 mg capsule ,delaye d release [address] [facility], [address], [place], [id number], 05/07/2024 12:21:08 ketocon azole 2 % shampoo 2022 023 [facility] #63274, [address], [place], [id number], 10/22/2023 12:32:30 hydroco done 7.5 mg-acet aminoph en 325 mg tablet 2022 023 [facility] #03819, [address], [place], [id number], 10/22/2023 12:30:59 doxycyc line hyclate 100 mg capsule 2022 023 [facility] #64203, [address], [place], [id number], 09/29/2024 10:11:37 albuter ol sulfate HFA 90 mcg/act uation aerosol inhaler 2022 023 anthony [facility] #31336, [address], [place], [id number], 09/17/2023 12:22:04 Patient TargetsNo targets recorded. Patient Instructions Encounter Date Encounter Id Patient Instructions Last Modified By Organization Details Last Modified Time 10/22/2023 [id number] A healthy lifest yle: care instructions [email or web address] Not available 10/22/2023 12:30:51 A healthy lifest yle: care instructions [email or web address] Not available 10/22/2023 12:30:51 medicines to chava id with kidney disease: care instructions [email or web address] Not available 10/22/2023 12:30:51 12/31/2023 [id number] A healthy lifest yle: care instructions [email or web address] Not available 12/31/2023 12:12:45 medicines to chava id with kidney disease: care instructions [email or web address] Not available 12/31/2023 12:12:45 back care and preventing injuries: care instructions [email or web address] Not available 12/31/2023 12:12:45 05/07/2024 [id number] medicines to chava id with kidney disease: care instructions [email or web address] Not available 05/07/2024 12:40:09 deciding about surgery for a herniated disc [email or web address] Not available 05/07/2024 12:40:09 gastroesophageal reflux disease (GERD): care instructions [email or web address] Not available 05/07/2024 12:40:09 high cholesterol : care instructions [email or web address] Not available 05/07/2024 12:40:09 A healthy lifest yle: care instructions [email or web address] Not available 05/07/2024 12:40:08 learning about h igh blood pressure [email or web address] Not available 05/07/2024 12:40:09 09/29/2024 [id number] back care and preventing injuries: care instructions Not available 09/29/2024 11:03:45 gastroesophageal reflux disease (GERD): care instructions [email or web address] Not available 09/29/2024 11:03:45 learning about h igh blood pressure [email or web address] Not available 09/29/2024 11:03:45 high cholesterol : care instructions [email or web address] Not available 09/29/2024 11:03:45 Reason for Referral Orthopedic Surgeon Referral for Pain of right knee region Right knee pain Referring Physician: Moo Appiah, Internal Medicine, Encounter Date: 10/22/2023 Orthopedic Surgeon Referral for Pain of right shoulder joint Right shoulder pain Referring Physician: Moo Appiah, Internal Medicine, Encounter Date: 10/22/2023 Orthopedic Surgeon Referral for Low back pain Worsening low back pain Referring Physician: Moo Appiah Internal Medicine, Encounter Date: 12/31/2023 Results Created Date Observation Date Name Description Value Unit Range Abnormal Flag Note LastModifiedBy Organization Detail LastModifiedTime 09/21/20 23 09/26/2023 COMPL IANCE DRUG GABRIEL SIS, UR summary report (summary) FINAL ===== ===== ===== ===== ===== ===== ===== ===== ===== ===== ===== ===== ===== === TOXAS SURE COMP DRUG GABRIEL SIS,U R ===== ===== ===== ===== ===== ===== ===== ===== ===== ===== ===== ===== ===== === Test Resul t Flag Units Drug Prese nt Virgil codon e 703 ng/mg creat Virgil morph one 141 ng/mg creat Dihyd rocod eine 104 ng/mg creat Norhy droco done 1169 ng/mg creat Sourc es of hydro codon e inclu de sched uled presc ripti on medic ation s. Virgil morph one, dihyd rocod eine and norhy droco done are expec hayley metab olite s of hydro codon e. Virgil morph one and dihyd rocod eine are also avail able as sched uled presc ripti on medic ation s. Cital opram PRESE NT Desme thylc shan pram PRESE NT Desme thylc shan pram is an expec hayley metab olite of cital opram or the enant iomer ic form, escit alopr am. Trazo done PRESE NT 1,3 chlor ophen yl piper azine PRESE NT 1,3-c hloro pheny l piper azine is an expec hayley metab olite of trazo done. Aceta minop hen PRESE NT Diphe nhydr amine PRESE NT ===== ===== ===== ===== ===== ===== ===== ===== ===== ===== ===== ===== ===== === Test Resul t Flag Units Ref Range Creat inine 135 mg/dL >=20 ===== ===== ===== ===== ===== ===== ===== ===== ===== ===== ===== ===== ===== === Decla red Medic ation s: Medic ation list was not provi ded. ===== ===== ===== ===== ===== ===== ===== ===== ===== ===== ===== ===== ===== === For clini chaitanya consu ltati on, pleas e call . ===== ===== ===== ===== ===== ===== ===== ===== ===== ===== ===== ===== ===== === Not Available [facility] ([facility]) [address] [place], [address], 09/26/2023 19:08:43 09/21/20 23 09/26/2023 COMPL IANCE DRUG GABRIEL SIS, UR pdf . Not Available [facility] ([facility]) [address] [facility], [place], [address], 09/26/2023 19:08:43 06/06/20 24 06/07/2024 ALBUM IN/CR EATIN INE RATIO ,URIN E creatinine, urine 133.6 mg/dL notest ab. Not Available [facility] ([facility]) [address] [facility], [place], [address], 06/07/2024 11:11:58 06/06/20 24 06/07/2024 ALBUM IN/CR EATIN INE RATIO ,URIN E albumin, urine 9.5 ug/mL notest ab. Not Available [facility] ([facility]) [address] [facility], [place], [address], 06/07/2024 11:11:58 06/06/20 24 06/07/2024 ALBUM IN/CR EATIN INE RATIO ,URIN E alb/creat ratio 7 mg/g_ creat 0-29 Maria Luz l: 0 - 29 Moder ately incre ased: 30 - 300 Sever manolo incre ased: >300 Not Available [facility] ([facility]) [address] [place], [address], 06/07/2024 11:11:58 06/06/20 24 06/07/2024 LIPID PANEL cholesterol, total 123 mg/dL 100-19 9 Not Available [facility] ([facility]) [address] [place], [address], 06/07/2024 11:11:58 06/06/20 24 06/07/2024 LIPID PANEL triglyceride s 129 mg/dL 0-149 Not Available [facility] ([facility]) [address] [place], [address], 06/07/2024 11:11:58 06/06/20 24 06/07/2024 LIPID PANEL HDL cholesterol 49 mg/dL >39 Not Available [facility]) [address] [place], [address], 06/07/2024 11:11:58 06/06/20 24 06/07/2024 LIPID PANEL VLDL cholesterol chaitanya 23 mg/dL 5-40 Not Available [facility] ([facility]) [address] [place], [address], 06/07/2024 11:11:58 06/06/20 24 06/07/2024 LIPID PANEL LDL chol calc ([facility]) 51 mg/dL 0-99 Not Available [facility] ([facility]) [address] [place], [address], 06/07/2024 11:11:58 06/06/20 24 06/07/2024 COMP. METAB OLIC PANEL (14) glucose 75 mg/dL 70-99 Not Available [facility] ([facility]) [address] [place], [address], 06/07/2024 11:11:59 06/06/20 24 06/07/2024 COMP. METAB OLIC PANEL (14) BUN 26 mg/dL 8-27 Not Available [facility] ([facility]) [address] [place], [address], 06/07/2024 11:11:59 06/06/20 24 06/07/2024 COMP. METAB OLIC PANEL (14) creatinine 1.12 mg/dL 0.57-1 .00 above high normal Not Available [facility] ([facility]) [address] [facility], [place], [address], 06/07/2024 11:11:59 06/06/20 24 06/07/2024 COMP. METAB OLIC PANEL (14) eGFR 53 mL/mi n/1.7 3 >59 below low normal Not Available [facility] ([facility]) [address] [facility], [place], [address], 06/07/2024 11:11:59 06/06/20 24 06/07/2024 COMP. METAB OLIC PANEL (14) BUN/creatini ne ratio 23 12-28 Not Available [facility] ([facility]) [address] [facility], [place], [address], 06/07/2024 11:11:59 06/06/20 24 06/07/2024 COMP. METAB OLIC PANEL (14) sodium 139 mmol/ L 134-14 4 Not Available [facility] ([facility]) [address] [facility], [place], [address], 06/07/2024 11:11:59 06/06/20 24 06/07/2024 COMP. METAB OLIC PANEL (14) potassium 5.1 mmol/ L 3.5-5. 2 Speci men recei celsa hemol yzed. Value may be incre ased by hemol ysis. Clini chaitanya corre latio n indic ated. Not Available [facility] ([facility]) [address] [facility], [place], [address], 06/07/2024 11:11:59 06/06/20 24 06/07/2024 COMP. METAB OLIC PANEL (14) chloride 102 mmol/ L 96-106 Not Available [facility] ([facility]) [address] [facility], [place], [address], 06/07/2024 11:11:59 06/06/20 24 06/07/2024 COMP. METAB OLIC PANEL (14) carbon dioxide, total 22 mmol/ L 20-29 Not Available [facility] ([facility]) [address] [facility], [place], [address], 06/07/2024 11:11:59 06/06/20 24 06/07/2024 COMP. METAB OLIC PANEL (14) calcium 9.9 mg/dL 8.7-10 .3 Not Available [facility] ([facility]) [address] [facility], [place], [address], 06/07/2024 11:11:59 06/06/20 24 06/07/2024 COMP. METAB OLIC PANEL (14) protein, total 7.1 g/dL 6.0-8. 5 Not Available [facility] ([facility]) [address] [facility], [place], [address], 06/07/2024 11:11:59 06/06/20 24 06/07/2024 COMP. METAB OLIC PANEL (14) albumin 4.5 g/dL 3.9-4. 9 Not Available [facility] ([facility]) [address] [facility] [place], [address], 06/07/2024 11:11:59 06/06/20 24 06/07/2024 COMP. METAB OLIC PANEL (14) globulin, total 2.6 g/dL 1.5-4. 5 Not Available [facility] ([facility]) [address] [facility] [place], [address], 06/07/2024 11:11:59 06/06/20 24 06/07/2024 COMP. METAB OLIC PANEL (14) bilirubin, total 0.3 mg/dL 0.0-1. 2 Not Available [facility] ([facility]) [address] [facility], [place], [address], 06/07/2024 11:11:59 06/06/20 24 06/07/2024 COMP. METAB OLIC PANEL (14) alkaline phosphatase 64 IU/L 44-121 Not Available [facility] ([facility]) [address] [place], [address], 06/07/2024 11:11:59 06/06/20 24 06/07/2024 COMP. METAB OLIC PANEL (14) AST (SGOT) 31 IU/L 0-40 Not Available [facility] ([facility]) [address] [place], [address], 06/07/2024 11:11:59 06/06/20 24 06/07/2024 COMP. METAB OLIC PANEL (14) ALT (SGPT) 13 IU/L 0-32 Not Available [facility] ([facility]) [address] [facility], [place], [address], 06/07/2024 11:11:59 06/06/20 24 06/07/2024 VITAM IN B12 AND FOLAT E vitamin B12 256 pg/mL 232-12 45 Not Available [facility] ([facility]) [address] [place], [address], 06/07/2024 11:12:00 06/06/20 24 06/07/2024 VITAM IN B12 AND FOLAT E folate (folic acid), serum 14.6 NG/mL >3.0 A serum folat e natalie ntrat ion of less than 3.1 ng/mL is consi dered to repre sent clini chaitanya defic iency . Not Available [facility] ([facility]) [address] [facility], [place], [address], 06/07/2024 11:12:00 06/06/20 24 06/07/2024 HEMOG LOBIN A1C hemoglobin A1C 5.6 % 4.8-5. 6 Predi abete s: 5.7 - 6.4 Diabe benson: >6.4 Glyce leti contr ol for adult s with diabe benson: <7.0 Not Available [facility] ([facility]) [address] [place], [address], 06/07/2024 11:12:00 06/06/20 24 06/07/2024 CBC, PLATE LET, NO DIFFE RENTI AL WBC 6.0 x10e3 /uL 3.4-10 .8 Not Available [facility] ([facility]) [address] [facility], [place], [address], 06/07/2024 11:12:01 06/06/20 24 06/07/2024 CBC, PLATE LET, NO DIFFE RENTI AL RBC 4.80 x10e6 /uL 3.77-5 .28 Not Available [facility] ([facility]) [address] [facility], [place], [address], 06/07/2024 11:12:01 06/06/20 24 06/07/2024 CBC, PLATE LET, NO DIFFE RENTI AL hemoglobin 12.4 g/dL 11.1-1 5.9 Not Available [facility] ([facility]) [address] [facility], [place], [address], 06/07/2024 11:12:01 06/06/20 24 06/07/2024 CBC, PLATE LET, NO DIFFE RENTI AL hematocrit 40.9 % 34.0-4 6.6 Not Available [facility] ([facility]) [address] [facility], [place], [address], 06/07/2024 11:12:01 06/06/20 24 06/07/2024 CBC, PLATE LET, NO DIFFE RENTI AL MCV 85 fL 79-97 Not Available [facility] ([facility]) [address] [place], [address], 06/07/2024 11:12:01 06/06/20 24 06/07/2024 CBC, PLATE LET, NO DIFFE RENTI AL MCH 25.8 pg 26.6-3 3.0 below low normal Not Available [facility] ([facility]) [address] [place], [address], 06/07/2024 11:12:01 06/06/20 24 06/07/2024 CBC, PLATE LET, NO DIFFE RENTI AL MCHC 30.3 g/dL 31.5-3 5.7 below low normal Not Available [facility] ([facility]) [address] [facility], [place], [address], 06/07/2024 11:12:01 06/06/20 24 06/07/2024 CBC, PLATE LET, NO DIFFE RENTI AL RDW 16.6 % 11.7-1 5.4 above high normal Not Available [facility] ([facility]) [address] [facility], [place], [address], 06/07/2024 11:12:01 06/06/20 24 06/07/2024 CBC, PLATE LET, NO DIFFE RENTI AL platelets 323 x10e3 /uL 150-45 0 Not Available [facility] [address] [facility], [place], [address], 06/07/2024 11:12:01 11/20/19 25 11/21/2024 Hemog lobin A1c/H emogl obin. total in Blood hemoglobin A1C/hemoglob in.total in blood 5.4 % low: 4.8%hi gh: 5.6% Hemog lobin A1C 5.4 4.8 - 5.6 % [facility] José n Not Available Not Available 01/07/2025 11:23:52 11/27/19 25 12/03/2024 COMPL IANCE DRUG GABRIEL SIS, UR summary report (summary) FINAL ===== ===== ===== ===== ===== ===== ===== ===== ===== ===== ===== ===== ===== === TOXAS SURE COMP DRUG GABRIEL SIS,U R ===== ===== ===== ===== ===== ===== ===== ===== ===== ===== ===== ===== ===== === Test Resul t Flag Units Drug Prese nt Virgil codon e 1251 ng/mg creat Virgil morph one 298 ng/mg creat Dihyd rocod eine 100 ng/mg creat Norhy droco done 1088 ng/mg creat Sourc es of hydro codon e inclu de sched uled presc ripti on medic ation s. Virgil morph one, dihyd rocod eine and norhy droco done are expec hayley metab olite s of hydro codon e. Virgil morph one and dihyd rocod eine are also avail able as sched uled presc ripti on medic ation s. Gabap entin PRESE NT Cital opram PRESE NT Desme thylc shan pram PRESE NT Desme thylc shan pram is an expec hayley metab olite of cital opram or the enant iomer ic form, escit alopr am. Aceta minop hen PRESE NT ===== ===== ===== ===== ===== ===== ===== ===== ===== ===== ===== ===== ===== === Test Resul t Flag Units Ref Range Creat inine 115 mg/dL >=20 ===== ===== ===== ===== ===== ===== ===== ===== ===== ===== ===== ===== ===== === Decla red Medic ation s: Medic ation list was not provi ded. ===== ===== ===== ===== ===== ===== ===== ===== ===== ===== ===== ===== ===== === For clini chaitanya consu ltati on, pleas e call . ===== ===== ===== ===== ===== ===== ===== ===== ===== ===== ===== ===== ===== === Not Available [facility] ([facility]) [address] [facility], [place], [address], 12/04/2024 06:18:18 11/27/19 25 12/03/2024 COMPL IANCE DRUG GABRIEL SIS, UR pdf . Not Available [facility] ([facility]) [address] [facility], [place], [address], 12/04/2024 06:18:18 08/29/20 23 08/29/2023 MAMMO , diagn ostic , digit al, bilat eral No observ ation record ed. [facility] [address] [place] [address], [phone], 09/18/2023 10:40:15 08/29/20 23 08/29/2023 MAMMO , diagn ostic , digit al, bilat eral No observ ation record ed. [facility] [address] [place] [address], [phone], 09/18/2023 10:41:18 Result Notes None recorded. Problems Name Problem SNOMED Code Status Onset Date Resolution Date Notes Provider Name and Address Organization Details Recorded Time Degenerat ion of intervert ebral disc 87561798 Active 2020 Not Available [facility] 4 23:26:01 Chronic kidney disease stage 3 987684634 Active 2020 Not Available [facility] 4 23:26:00 Gastroeso phageal reflux disease 410987467 Active 2020 Not Available [facility] 4 23:26:00 Eczema 06023536 Active 2020 Not Available [facility] 4 23:26:00 Acute folliculi tis 108191288 Active 2020 [facility] 4 23:26:00 Laceratio n - injury 777423591 Active [address] left upper arm Not Available [facility] 4 23:26:00 Loss of hair 602940177 Active 2021 Not Available [facility] 4 23:26:00 Serum creatinin e above reference range 207802629 Active 2021 Not Available [facility] 4 23:26:00 Serum vitamin B12 borderlin e low 723843496 Active 2021 Not Available [facility] 4 23:26:00 Vitamin D below reference range 635069798 Active 2021 Not Available [facility] 4 23:26:00 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 2021 Not Available [facility] 4 23:26:00 Acute otitis media 6696781 Active 2021 Not Available [facility] 4 23:26:00 Administr ation of pneumococ chaitanya vaccine Active 2021 Not Available [facility] 4 23:26:00 Screening for malignant neoplasm of breast Active 2021 Not Available [facility] 4 23:26:00 Screening for malignant neoplasm of colon Active 2021 Not Available [facility] 4 23:26:00 Administr ation of diphtheri a and tetanus vaccine Active 2021 Not Available [facility] 4 23:26:00 Acute left otitis media 425585082 Active 2021 Not Available [facility] 4 23:26:00 Neuropath y due to diabetes mellitus 261924691 Active 2021 Not Available [facility] 4 23:26:00 Sleep apnea 92438367 Active 2021 Not Available [facility] 4 23:26:01 Injury of right shoulder 77516856994 850945 Active 2021 Not Available [facility] 4 23:26:00 Strain of muscle of right shoulder 38479675420 067287 Active 2021 Not Available [facility] 4 23:25:59 Failure to lose weight 94573840 Active 2021 Not Available [facility] 4 23:26:01 Menopause Active 2021 Not Available [facility] 4 23:26:00 Disorder of rotator cuff 873251646 Active Not Available [facility] 4 23:26:00 Dyspnea 883474275 Active 2021 Not Available [facility] 4 23:26:00 Administr ation of influenza vaccine Active 2021 Not Available [facility] 4 23:26:01 Musculosk eletal pain 314720755 Active 2021 RUE/RLE/l ower back Not Available [facility] 4 23:26:00 Vitamin D deficienc y 42430430 Active 2021 Not Available [facility] 4 23:26:00 Medicatio n monitorin g Active 2021 Not Available [facility] 4 23:26:00 Vitamin deficienc y 03358068 Active 2021 B12 Not Available [facility] 4 23:26:01 Obesity 207378146 Active 2022 Not Available [facility] 4 23:26:00 Muscle pain 68741332 Active 2022 Not Available [facility] 4 23:26:00 Impacted cerumen 30274549 Active 2022 Not Available [facility] 4 23:26:00 Cobalamin deficienc y 718911802 Active 2022 Not Available [facility] 4 23:26:00 Bilateral cramp of muscle of lower limbs 25296056945 668043 Active 2022 Not Available [facility] 4 23:26:00 Itching of both hands 956944143 Active 2022 Not Available [facility] 4 23:26:01 Pain of right knee region 93143925220 4105 Active 2022 Not Available [facility] 4 23:26:00 Pain of right shoulder joint 95667351230 014017 Active 2022 Not Available [facility] 4 23:26:00 Disorder of scalp 927052637 Active 2022 Not Available [facility] 4 23:26:00 Constipat ion 39538768 Active 2023 Moo Appiah MD Attn: Accounting ,[address], [place], [address] , [place] [facility] 4 19:43:01 Nocturnal muscle spasm 00257432 Active 2023 Moo Appiah MD Attn: Accounting ,[address], [place], [address] , [place] [facility] 4 12:26:30 Eruption 159471440 Active Not Available [facility] 4 23:26:00 Tobacco user 762447499 Active quit December 24, 2021 Not Available [facility] 4 23:25:59 Allergic rhinitis 44800423 Active 2023 Moo Appiah MD Attn: Accounting ,[address], [place], [address] , [place] [facility] 4 04:24:27 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 Active Not Available [facility] 4 23:26:00 Insomnia 484895828 Active Not Available [facility] 4 23:26:00 Pain in thumb 804878379 Active Not Available [facility] 4 23:26:00 Otitis media 82667467 Active Not Available [facility] 4 23:26:00 Pes anserinus tendiniti s and bursitis 408632045 Active Not Available [facility] 4 23:26:00 Common cold 67996709 Active Not Available [facility] 4 23:26:01 Knee pain Active Not Available [facility] 4 23:26:00 Hyperlipi demia 09404649 Active Not Available [facility] 4 23:26:00 Diabetes mellitus 01106362 Active Not Available [facility] 4 23:26:00 Essential hypertens ion 40931308 Active Not Available [facility] 4 23:26:00 Carcinoma of breast 846878215 Active Not Available [facility] 4 23:26:00 Low back pain 531362651 Active Not Available [facility] 4 23:26:00 Headache 25926070 Active Not Available [facility] 4 23:26:00 Depressiv e disorder 04266927 Active Not Available [facility] [facility] 4 23:26:00 Notes:Some problems listed i n Documents: #[id number], #[id number], #[id number], #[id number], #[id number], #[id number], #[id number], #[id number], #[id number], #[id number], #[id number], #[id number] could not be added to this patient's chart. Please review these documents and add these problems to the patient's chart manually as needed. Problem Notes None recorded. Procedures Surgical History Date Name Laterality Status Provider Name and Address Organization Details Recorded Time 2 Date of Last Mammogram completed Betty Silveira [place] - [facility] 07/31/2023 11:08:11 8 Nebulizer tx completed CARYL Valiente Attn: [address] [place], [address], [facility] - [facility] 12/13/2017 13:42:19 8 Knee Surgery completed Andreea Garcia [place] - [facility] 10/28/2021 11:20:25 8 Knee Surgery completed Andreea Garcia [place] - [facility] 10/28/2021 11:20:33 7 Back Surgery completed Andreea Garcia [place] - [facility] 10/28/2021 11:20:56 6 Joint Injection completed CARYL Valiente Attn: Accounting[address] , [place], [address], [place] - [facility] 08/01/2016 15:36:49 6 Joint Injection [place] Aravind Bird [place] - [facility] 03/01/2016 13:02:20 6 Joint Injection [place] Aravind Bird [place] - [facility] 01/04/2016 17:35:54 2 Date of Last Pap Smear completed Betty Silveira [place] - [facility] 07/31/2023 11:07:39 Imaging Results Imaging Date Name Status [facility] LastModified Time 08/29/2023 MAMMO, diagnostic, digital, bilateral completed [facility] (Imaging) [address] [place] [address], [id number], 09/18/2023 10:40:15 08/29/2023 MAMMO, diagnostic, digital, bilateral completed [facility] (Imaging) [address] [place] [address], [id number], 09/18/2023 10:41:18 Procedure Notes None recorded. Medical Equipment None Reported. Allergies Allergen ID Allergen Name Allergen Category Reaction Reaction Severity Criticality Documentation Date Start Date Code Code System Note Provider Name and Address Organization Details Recorded Time 77881 codeine medicatio n Not available Not available Not available 11/09/2014 2670 RxNorm Not Available Not Available Not Available Medications Name Sig Start Date Stop Date Status Note LastModified by Organization Details LastModified Time accu-chek guide w/device kit active Not Available Not Available Not Available cyclobenz aprine 10 mg tablet active Not Available Not Available No t Available amoxicill in 500 mg capsule Take 2 capsules by mouth twice daily 07/04 completed Not Available Not Available Not Available Miralax 17 gram/dose oral powder 17 gms daily daily as needed 2023 active Not Available Not Available Not Avai lable atorvasta tin 40 mg tablet TAKE 1 TABLET BY MOUTH DAILY AT 9 PM AT BEDTIME active Not Available Not Available No t Available metformin 500 mg tablet TAKE 1 TABLET BY MOUTH TWICE DAILY active Not Available Not Available No t Available bupropion HCl SR 150 mg tablet,12 hr sustained -release 10/28 completed Not Available Not Available Not Available promethaz ine-DM 6.25 mg-15 mg/5 mL oral syrup Take 5 mL every 4 hours by oral route. 2023 active Not Available Not Available Not Avai lable neomycin- polymyxin -hydrocor t 3.5 mg/mL-10, 000 unit/mL-1 % ear solution active Not Available Not Available Not Available diclofena c 3 % topical gel Apply 2 pumps to the affected knee/s twice daily ^ 10/20 completed Not Available Not Available Not Available prednison e 10 mg tablet active Not Available Not Available Not Available gabapenti n 600 mg tablet Take 1 tablet 3 times a day by oral route. 09/29 completed Not Available Not Available Not Available doxycycli ne hyclate 100 mg capsule one capsule po bid 09/29 completed Not Available Not Available Not Available atorvasta tin 20 mg tablet active Not Available Not Available Not Available carvedilo l 12.5 mg tablet TAKE 1 TABLET BY MOUTH IN THE MORNING AND 1 IN THE EVENING WITH MEALS 12/31 completed Not Available Not Available Not Available ketoconaz ole 2 % shampoo APPLY TO THE AFFECTED AREA(S), LATHER, LEAVE IN PLACE FOR 5 MINUTES, AND THEN RINSE OFF WITH WATER. Use three timed weekly active Not Available Not Available No t Available tizanidin e 2 mg tablet TAKE 1 TABLET BY MOUTH EVERY 6 HOURS 04/02 completed Not Available Not Available Not Available albuterol sulfate 2.5 mg/3 mL (0.083 %) solution for nebulizat ion Inhale 3 mL every 4-6 hours by nebuliza tion route as needed. 10/28 completed Not Available Not Available Not Available Vicoprofe n 7.5 mg-200 mg tablet Take 1 tablet every 8 hours by oral route as needed for pain for 30 days. 04/12 completed Not Available Not Available Not Available trazodone 50 mg tablet TAKE 1 TABLET BY MOUTH EVERY DAY AT BEDTIME 05/07 completed Not Available Not Available Not Available lisinopri l 20 mg-hydroc hlorothia zide 12.5 mg tablet Take 1 tablet(s ) every day by oral route. 11/22 completed Not Available Not Available Not Available oxybutyni n chloride ER 10 mg tablet,ex tended release 24 hr Take 1 tablet every day by oral route. 06/12 completed Not Available Not Available Not Available azithromy alisa 250 mg tablet TAKE 2 TABLETS BY MOUTH ON DAY 1, AND THEN TAKE 1 TABLET BY MOUTH ONCE A DAY ON DAY 2 THROUGH DAY 5 03/23 completed Not Available Not Available Not Available pravastat in 40 mg tablet TAKE ONE TABLET BY MOUTH AT BEDTIME 10/28 completed Not Available Not Available Not Available ibuprofen 800 mg tablet Take 1 tablet 3 times a day by oral route with meals for 7 days. 10/20 completed Not Available Not Available Not Available ofloxacin 0.3 % eye drops Instill 10 drops in both ears every day for 7 days 05/17 completed Not Available Not Available Not Available tizanidin e 4 mg tablet TAKE 1 TABLET BY MOUTH ONCE DAILY 02/21 completed Not Available Not Available Not Available hydrocodo ne 5 mg-acetam inophen 325 mg tablet TAKE ONE TABLET BY MOUTH TWICE DAILY 05/03 completed Not Available Not Available Not Available prochlorp erazine maleate 5 mg tablet 05/17 completed Not Available Not Available Not Available meloxicam 15 mg tablet Take 1 tablet(s ) every day by oral route in the morning with breakfas t. 07/03 completed Not Available Not Available Not Available lisinopri l 20 mg tablet TAKE 1 TABLET BY MOUTH EVERY DAY 2024 active Not Available Not Available Not Avai lable ondansetr on HCl 4 mg tablet 09/29 completed Not Available Not Available Not Available prednison e 20 mg tablet TAKE TWO TABLETS BY MOUTH DAILY FOR FIVE DAYS 10/20 completed Not Available Not Available Not Available metformin 850 mg tablet TAKE ONE TABLET BY MOUTH DAILY WITH BREAKFAS T 10/28 completed Not Available Not Available Not Available clindamyc in HCl 150 mg capsule 11/22 completed Not Available Not Available Not Available cyanocoba blanco (vit B-12) 1,000 mcg tablet TAKE ONE TABLET BY MOUTH UNDER THE TONGUE TWICE DAILY @ 9AM-5PM 10/20 completed Not Available Not Available Not Available chlorthal idone 25 mg tablet 03/19 completed DC per kidney doctor Not Available Not Available Not Available ciproflox acin 500 mg tablet TAKE 1 TABLET BY MOUTH EVERY 12 HOURS FOR 10 DAYS 02/21 completed Not Available Not Available Not Available sulfameth oxazole 800 mg-trimet hoprim 160 mg tablet Take 1 tablet every 12 hours by oral route for 5 days. 02/06 completed Not Available Not Available Not Available hydrocodo ne 10 mg-acetam inophen 325 mg tablet 07/03 completed Not Available Not Available Not Available Nicotrol 10 mg inhalatio n cartridge Inhale 1 cartridg e 4 times a day by inhalati on route as needed for 30 days. 01/16 completed Not Available Not Available Not Available tramadol 50 mg tablet TAKE 1 TABLET BY MOUTH EVERY 8 HOURS NEEDED 10/20 completed Not Available Not Available Not Available triamcino lone acetonide 0.1 % topical cream active Not Available Not Available Not Available Kenalog 40 mg/mL suspensio n for injection 11/22 completed Not Available Not Available Not Available Macrobid 100 mg capsule Take 1 capsule every 12 hours by oral route for 5 days. 05/17 completed Not Available Not Available Not Available meloxicam 7.5 mg tablet Take 1 tablet(s ) every day by oral route. 11/22 completed Not Available Not Available Not Available Tessalon Perles 100 mg capsule Take 1 capsule 3 times a day by oral route as needed for 10 days. 2015 active Not Available Not Available Not Avai lable famotidin e 20 mg tablet Take 1 tablet twice a day by oral route. 09/29 completed Not Available Not Available Not Available methocarb dania 750 mg tablet 10/28 completed Not Available Not Available Not Available ropinirol e 0.25 mg tablet TAKE ONE TABLET BY MOUTH ONCE daily 10/28 completed Not Available Not Available Not Available amitripty line 10 mg tablet TAKE ONE TABLET BY MOUTH AT BEDTIME 09/18 completed Not Available Not Available Not Available baclofen 10 mg tablet take one tablet by mouth three times a day 11/22 completed Not Available Not Available Not Available hydrocort isone 1 % topical cream APPLY TO THE AFFECTED AREA left forearm BY TOPICAL ROUTE ONCE DAILY 2014 active Not Available Not Available Not Avai lable hydrocodo ne 7.5 mg-acetam inophen 325 mg tablet TAKE 1 TABLET BY MOUTH TWICE DAILY NEEDED active Not Available Not Available No t Available cephalexi n 500 mg capsule 1 CAPSULE By Mouth Twice a day FOR 10 DAYS 10/28 completed Not Available Not Available Not Available paroxetin e 20 mg tablet TAKE 1 TABLET BY MOUTH ONCE DAILY 01/16 completed Not Available Not Available Not Available cyanocoba blanco (vit B-12) 1,000 mcg/mL injection solution Inject 1 mL every month by subcutan eous route. 2022 active Not Available Not Available Not Avai lable nitrofura ntoin macrocrys sara 100 mg capsule 07/03 completed Not Available Not Available Not Available triamcino lone acetonide 0.1 % topical ointment APPLY APPLY THIN LAYER TO AFFECTED AREA TWICE DAILY 10/20 completed Not Available Not Available Not Available nicotine 11 mg/24 hr daily transderm al patch Apply 1 patch every day by transder mal route for 30 days. 06/12 completed Not Available Not Available Not Available gabapenti n 300 mg capsule Take 1 capsule twice a day by oral route for 30 days. 04/02 completed Not Available Not Available Not Available omeprazol e 20 mg capsule,d elayed release TAKE ONE CAPSULE BY MOUTH DAILY AT 9AM 04/02 completed Not Available Not Available Not Available lisinopri l 20 mg-hydroc hlorothia zide 25 mg tablet TAKE ONE TABLET BY MOUTH EVERY DAY 10/28 completed Not Available Not Available Not Available diclofena c sodium 75 mg tablet,de layed release 09/29 completed Not Available Not Available Not Available monteluka st 10 mg tablet TAKE ONE TABLET BY MOUTH EVERY EVENING 01/16 completed Not Available Not Available Not Available cyanocoba blanco (vit B-12) 1,000 mcg sublingua l tablet Place 1 tablet twice a day by sublingu al route for 30 days. 04/02 completed Not Available Not Available Not Available mupirocin 2 % topical ointment apply ONE applicat ion topicall y THREE TIMES DAILY FOR 10 DAYS 10/28 completed Not Available Not Available Not Available diclofena c sodium 50 mg tablet,de layed release TAKE ONE TABLET BY MOUTH TWICE DAILY 10/28 completed Not Available Not Available Not Available furosemid e 20 mg tablet TAKE 1 TABLET BY MOUTH EVERY DAY active Not Available Not Available No t Available gabapenti n 100 mg capsule TAKE 1 CAPSULE BY MOUTH TWICE DAILY IN THE EVENING active Not Available Not Available No t Available ergocalci ferol (vitamin D2) 1,250 mcg (50,000 unit) capsule Take 1 capsule every week by oral route. 2022 active Not Available Not Available Not Avai lable ibuprofen 600 mg tablet TAKE 1 TABLET BY MOUTH EVERY 6 HOURS NEEDED WITH FOOD 10/20 completed Not Available Not Available Not Available methylpre dnisolone 4 mg tablets in a dose pack 09/29 completed Not Available Not Available Not Available albuterol sulfate HFA 90 mcg/actua tion aerosol inhaler two puffs qid prn active Not Available Not Available No t Available oxybutyni n chloride 5 mg tablet 06/12 completed Not Available Not Available Not Available proparaca ine 0.5 % eye drops Apply 1 drop 3 times a day by ophthalm ic route as needed into the RIGHT ear for 3 days. active Not Available Not Available No t Available clobetaso l 0.05 % scalp solution APPLY TOPICALL Y TO THE AFFECTED AREA TWICE DAILY NEEDED active Not Available Not Available No t Available ondansetr on 4 mg disintegr ating tablet 09/29 completed Not Available Not Available Not Available fluticaso ne propionat e 50 mcg/actua tion nasal spray,aurelia pension Two puffs in each nostril daily active Not Available Not Available No t Available metformin ER 500 mg tablet,ex tended release 24 hr TAKE 2 TABLETS BY MOUTH DAILY AT 5 PM WITH A MEAL active Not Available Not Available No t Available clotrimaz ole 1 % topical cream APPLY TO both feet AND SURROUND ING AREAS OF SKIN BY TOPICAL ROUTE 2 TIMES PER DAY IN THE MORNING AND EVENING for 4 weeks 10/28 completed Not Available Not Available Not Available atenolol 50 mg tablet TAKE ONE TABLET BY MOUTH EVERY DAY 10/23 completed Not Available Not Available Not Available tamoxifen 20 mg tablet 06/12 completed stop by Oncology Not Available Not Available Not Available naproxen 500 mg tablet One tablet every six as needed 10/20 completed Not Available Not Available Not Available mometason e 0.1 % topical cream APPLY A THIN LAYER TO THE AFFECTED AREA(S) BY TOPICAL ROUTE ONCE DAILY 05/07 completed Not Available Not Available Not Available diazepam 5 mg tablet Take 1 tablet (5 mg total) by mouth once as needed (for MRI). 10/28 completed Not Available Not Available Not Available Dulcolax (bisacody l) 5 mg tablet,de layed release At 2:00 PM the day before the colonosc opy, take all 4 tablets of Dulcolax by mouth at one time with 8 ounces of water 09/29 completed Not Available Not Available Not Available neomycin- polymyxin -hydrocor t 3.5 mg-10,000 unit/mL-1 % ear drops,aurelia p INSTILL 4 DROPS INTO AFFECTED EAR(S) BY OTIC ROUTE 3 TIMES PER DAY 05/07 completed Not Available Not Available Not Available azithromy alisa 500 mg tablet Take 1 tablet every day by oral route for 3 days. active Not Available Not Available No t Available escitalop silvino 10 mg tablet TAKE 1 TABLET BY MOUTH EVERY DAY IN THE MORNING active Not Available Not Available No t Available escitalop silvino 20 mg tablet TAKE ONE TABLET BY MOUTH EVERY MORNING 04/02 completed Not Available Not Available Not Available ciproflox acin 0.3 %-dexamet hasone 0.1 % ear drops,aurelia pension 10/28 completed Not Available Not Available Not Available duloxetin e 30 mg capsule,d elayed release Take 1 capsule every day by oral route. 05/07 completed Drowsine ss Not Available Not Available Not Available duloxetin e 60 mg capsule,d elayed release TAKE ONE CAPSULE BY MOUTH DAILY AT 5PM 10/23 completed Not Available Not Available Not Available tizanidin e 2 mg capsule TAKE 1 CAPSULE BY MOUTH EVERY 6 HOURS 02/21 completed chnged to tabs Not Available Not Available Not Available fenofibra te 160 mg tablet TAKE 1 TABLET BY MOUTH EVERY NIGHT AT 9 PM 2024 active Not Available Not Available Not Avai lable Lyrica 50 mg capsule 10/28 completed Not Available Not Available Not Available aspirin 05/03 completed Not Available Not Available Not Available metformin ER 500 mg 24 hr tablet,ex tended release (gastric retention ) TAKE 2 TABLETS BY MOUTH AT 5 PM WITH A MEAL DAILY 05/07 completed Not Available Not Available Not Available cholecalc iferol (vitamin D3) 25 mcg (1,000 unit) tablet TAKE ONE TABLET BY MOUTH DAILY AT 9AM WITH FOOD 04/02 completed Not Available Not Available Not Available Symbicort 160 mcg-4.5 mcg/actua tion HFA aerosol inhaler inhale TWO puffs BY MOUTH TWICE DAILY rinse MOUTH with water AFTER USE AND spit 04/02 completed Not Available Not Available Not Available diclofena c 1 % topical gel 10/20 completed Not Available Not Available Not Available cholecalc iferol (vitamin D3) 50 mcg (2,000 unit) capsule TAKE 1 CAPSULE BY MOUTH EVERY DAY active Not Available Not Available No t Available Combivent Respimat 20 mcg-100 mcg/actua tion solution for inhalatio n 10/23 completed Not Available Not Available Not Available Pennsaid 20 mg/gram/a ctuation (2 %) topical soln in metered-d ose pump APPLY 2 PUMPS (40 MG) TO THE AFFECTED KNEE(S) BY TOPICAL ROUTE 2 TIMES PER DAY active Not Available Not Available No t Available bupropion HCl 150 mg tablet,12 hr sustained -release( smoking deterrent ) Take 1 tablet (150 mg total) by mouth 2 (two) times daily. 01/16 completed Not Available Not Available Not Available Lidopril 2.5 %-2.5 % topical kit active Not Available Not Available Not Available Accu-Chek Guide test strips active Not Available Not Available Not Available Pennsaid 2 % topical solution in packet , 08/04 completed Not Available Not Available Not Available Mounjaro 7.5 mg/0.5 mL subcutane ous pen injector active Not Available Not Available Not Available Mounjaro 5 mg/0.5 mL subcutane ous pen injector Inject by sub-q route for 84 days. active Not Available Not Available No t Available Mounjaro 10 mg/0.5 mL subcutane ous pen injector ADMINIST ER 10 MG UNDER THE SKIN WEEKLY active Not Available Not Available No t Available Mounjaro 2.5 mg/0.5 mL subcutane ous pen injector active Not Available Not Available Not Available Vitals Date Recorded Body height Body mass index (BMI) Body weight Oxygen saturation Oxygen saturation in Arterial blood by Pulse oximetry Heart rate Systolic blood pressure Diastolic blood pressure Provider Name and Address Organization Details Last Updated DateTime 3 153.92 cm 33.3 kg/m2 22475.0 7 g 95 % 95 % 76 /min 120 mm[Hg] 78 mm[Hg] Betty Silveira [place] - [facility] 3 11:40:05 Date Recorded Body height Body mass index (BMI) Body weight Body temperature Oxygen saturation Oxygen saturation in Arterial blood by Pulse oximetry Heart rate Systolic blood pressure Diastolic blood pressure Provider Name and Address Organization Details Last Updated DateTime 3 153.92 cm 33.1 kg/m2 26761.4 8 g 98 [degF] 96 % 96 % 85 /min 150 mm[Hg] 84 mm[Hg] Maia Marques [place] - [facility] 3 12:00:35 Date Recorded Body height Body mass index (BMI) Body weight Heart rate Body temperature Oxygen saturation Oxygen saturation in Arterial blood by Pulse oximetry Systolic blood pressure Diastolic blood pressure Provider Name and Address Organization Details Last Updated DateTime 4 153.92 cm 31.6 kg/m2 51159.7 4 g 103 /min 98 [degF] 97 % 97 % 108 mm[Hg] 58 mm[Hg] Maia Marques [place] - [facility] 4 11:44:35 Date Recorded Body height Body mass index (BMI) Body weight Oxygen saturation Oxygen saturation in Arterial blood by Pulse oximetry Heart rate Systolic blood pressure Diastolic blood pressure Provider Name and Address Organization Details Last Updated DateTime 4 153.92 cm 30.3 kg/m2 37913.5 9 g 98 % 98 % 94 /min 120 mm[Hg] 76 mm[Hg] Maia Marques [place] - [facility] 4 12:00:47 Date Recorded Body height Body mass index (BMI) Body weight Heart rate Oxygen saturation Oxygen saturation in Arterial blood by Pulse oximetry Systolic blood pressure Diastolic blood pressure Provider Name and Address Organization Details Last Updated DateTime 4 154.94 cm 30.8 kg/m2 20836.5 6 g 82 /min 97 % 97 % 116 mm[Hg] 73 mm[Hg] Karen Norton MA [facility] 4 10:16:46 Social History Question Answer Notes LastModified by Organizat ion Details LastModified Time Tobacco Smoking Status Former Smoker quit 5 months ago ZAHIRA [place], [place] - [facility] 04/27/2022 11:01:20 Do You Have An Advance Directive? No Information not available 09/11/2023 What Is Your Level Of Alcohol Consumption? None Information not available 01/08/2015 Are You Blind Or Do You Have Difficulty Seeing? No Information not available 10/28/2021 What Is Your Level Of Caffeine Consumption? Occasional Information not available 10/28/2021 In The 14 Days Before Symptom Onset, Have You Had Close Contact With A Laboratory-confir med COVID-19 While That Case Was Ill? No Information not available 09/11/2023 In The 14 Days Before Symptom Onset, Have You Had Close Contact With A Person Who Is Under Investigation For COVID-19 While That Person Was Ill? No Information not available 09/11/2023 Have You Been To An Area Known To Be High Risk For COVID-19? No Information not available 09/11/2023 Are You Currently Employed? No SSI Information not available 10/28/2021 Are You Deaf Or Do You Have Serious Difficulty Hearing? No Information not available 10/28/2021 What Type Of Diet Are You Following? REGULAR Information not available 10/28/2021 What Is The Highest Grade Or Level Of School You Have Completed Or The Highest Degree You Have Received? [id number] Information not available 09/11/2023 Are There Any Guns Present In Your Home? No Information not available 10/28/2021 Do You Have A Medical Power Of Siebel Administrator? No Information not available 09/11/2023 What Was The Date Of Your Most Recent Tobacco Screening? 09/29/2024 Information not available 09/29/2024 How Many Children Do You Have? 3 Information not available 10/28/2021 What Is Your Relationship Status? Information not available 09/29/2024 Do You Use Your Seat Belt Or Car Seat Routinely? Yes Information not available 10/28/2021 Are You Sexually Active? No Information not available 10/28/2021 At What Age Did You Start Smoking Tobacco? 13 Information not available 01/08/2015 Are You Passively Exposed To Smoke? No Information no t available 10/28/2021 How Much Tobacco Do You Smoke? No [email or web address] Information not available 04/27/2022 Do You Feel Stressed (tense, Restless, Nervous, Or Anxious, Or Unable To Sleep At Night)? [id number] Information not available 10/28/2021 Do You Use Sunscreen Routinely? Yes Information not available 10/28/2021 Has Tobacco Cessation Counseling Been Provided? Yes Information not available 10/28/2021 On What Date Was Tobacco Cessation Counseling Provided? 09/29/2024 Information not available 09/29/2024 Do You Or Have You Ever Used Any Other Forms Of Tobacco Or Nicotine? No [email or web address] Information not available 04/02/2023 Sex: Female Functional Status Question Answer Note LastModified by Organization D etails LastModified Time Are you able to care for yourself? Yes Information n ot available 10/28/2021 What is your exercise level? None Information not available 10/28/2021 Mental Status None recorded. Family History Nothing Reported. Medical History Condition Response Coronary Artery Disease N Blood Diseases N Kidney Cyst N Hyperthyroidism N Blood Transfusion N MRSA N Blood disorders N Emphysema N COPD N Blood Clots N Depression N Pneumonia N Peripheral Arterial Disease N Premature N Edema N TIA N Headaches/Migraines N Anxiety Disorder N Obesity N Infertility N Polyps N Acid Reflux (GERD) N Hematuria N Stroke N Neck Injury N Polio N Hospital Admission other than N Neurologic Disorder N Other Sleep Disorders N Rheumatoid Arthritis N Fibromyalgia N Abdominal Aortic Aneurysm Repair N Kidney Disease N Heart Conditions N Heart Disease/Heart Problems N Hospitalizations N Brain Tumors N Acne N Eating Disorder N Skin Problems N Constipation N Meningitis N Tuberculosis N Cerebral Palsy N Myocardial Infarction N Asthma N Substance Abuse N Peripheral Vascular Disease N Vertigo N Sleep Disorder N Cirrhosis N Pulmonary Embolism N Chicken Pox N Flomax Use Past or Present N Hematologic Disease N Anxiety/Depression N Thyroid Disease N Colon Cancer N Glaucoma N Lung Disease N Developmental or Behavioral Disorders N Bipolar N Pacemaker N Diverticulitis/Diverticulosis N Anesthesia Complications N Orthopedic Problems N Orthotics N Head Injury/Concussion N Congenital Anomalies N Bailey Bite N Chronic Kidney Disease N Endometriosis N Liver Disease N Dialysis N Schizophrenia N Speech Delay N Chronic Obstructive Pulmonary Disease N Parkinson's Disease N Thyroid Problems N GI Problems N Developmental Delay N Anemia N Immune System Disorder N Multiple Sclerosis N Colon Polyps N Heart Attack (GA) N Diabetes Y Cardiomyopathy N Blood Transfusions N Heart Problems/Murmur N Eye Trauma N Congestive Heart Failure (CHF) N Valvular Heart Disease N Hyperlipidemia N Double Vision N Abuse/Domestic Violence N Hepatitis B N Lupus N Epilepsy/Seizures N Reflux/GERD N Aneurysm N Bronchitis N Heart Disease N Hypertension N Pre-Eclampsia N Heart Failure N Other N Gout N High Blood Pressure Y Atrial Fibrillation N Kidney Stones N Head Trauma/Injury N Congenital Heart Disease N Spine Problems N Gastrointestinal Disease N Lung Mass N Sinusitis N Obstructive Sleep Apnea N Muscle, Joint, or Bone Problems N Autoimmune disease N Vision or Eye Problems N Arthritis N Blood Clot N Cancer N Seasonal allergies N Leg or Foot Ulcers N Raynaud's Disease N Aortic Aneurysm N Arrhythmia N Headaches N Heart Problems N Ambloypia N Ear or Hearing Problems N Hyperparathyroidism N Migraines N Artificial Joints N Kidney or Bladder Problems N NSAID Use N Encephalitis N PTSD N Ulcers N Prostate Hypertrophy N Bleeding Disorder N AIDS/HIV N Urinary Tract Infection N Back Problems N Allergies N Atrial Flutter N GERD/Reflux N Hepatitis N Autism Spectrum Disorder (ASD) N Breast Cancer N Hernia N Hypothyroidism N Breast Problem N Genitourinary Disease N Deep Vein Thrombosis N Varicose Veins N Cystic Fibrosis N Hearing Loss N Developmental Problems N Carotid Disease N Vitamin D Deficiency N ADHD N Bladder or Kidney Problems N High Cholesterol N [place] N Valvular Abnormalities N Psychiatric/Mental Health Condition N Organ Transplant N Foot Deformity N Allergies/Hayfever N Dyslipidemia Y Hyponatremia N Diabetic Eye Disease N Osteoporosis/Osteopenia N Back Pain N Proteinuria N Mental Illness N Neurological Problems N Ovarian Cancer N Bedwetting N Seizures/Epilepsy N Kidney Failure N Ocular trauma N Dementia N Diverticulitis N Sleep Apnea N Mental Problems N Warfarin Management N Osteoporosis N Gynecological History Statement/Question Response Date of Last Pap Smear 10/22/2012 Current Control Method Hysterectom y Date of Last Mammogram 10/25/2022 Date of LMP Obstetrics History GPAL:G 4 P 0 0 0 3 Type Value Living 3 Total 4 Immunizations Vaccine Type Date Status Note Provider Nam e and Address Organization Details Recorded Time COVID-19, mRNA, LNP-S, PF, 30 mcg/0.3 mL dose 1 completed Not Available [facility] 12/19/2023 23:26:01 COVID-19, mRNA, LNP-S, PF, 30 mcg/0.3 mL dose 1 completed Not Available [facility] 12/19/2023 23:26:01 Influenza, split virus, quadrivalent, preservative 6 completed Not Available [facility] 11/29/2019 02:32:32 Influenza, split virus, quadrivalent, preservative 7 completed Not Available [facility] 11/29/2019 02:41:33 Influenza, split virus, quadrivalent, preservative 9 completed Not Available [facility] 11/29/2019 02:37:03 pneumococcal polysaccharide PPV23 2 completed Reshma Rinaldi [place], [place] [facility] 02/21/2022 11:02:03 Tdap 2 completed Reshma Rinaldi [place], [place] [facility] 02/21/2022 11:02:56 Influenza, split virus, quadrivalent, preservative 2 completed Griffin Norton PA-C Attn: Accounting[address] [place], [address], [facility] - [facility] 09/07/2022 21:40:43 Influenza, split virus, quadrivalent, preservative 5 completed Not Available [facility] 11/29/2019 02:39:51 Pneumococcal conjugate PCV 13 5 completed Not Available [facility] 11/29/2019 02:31:39 Past Encounters Encounter ID Performer Location Encounter Start Date Encounter Closed Date Diagnosis/Indication Diagnosis SNOMED-CT Code Diagnosis ICD10 Code Diagnosis Note [id number] [facility] [address] [place] [address] 11/09/2014 14:29:48 11/09/2014 14:49:27 Diabetes mellitus 76458965 Last HgA1c was 5.7, foot and eye exam are up to date, currently on metformin, I will update her labs today Essential hypertension 78729167 At goal with repeat, continue current medication . Carcinoma of breast 857808558 Tamoxifen was discontinu ed, now officially past the 5 year ashish. Low back pain 889237748 Chronic in nature, no red flags, has done injections in the past [id number] Ignacia Mackay [facility] ([facility] [address] [place] [address] 01/08/2015 14:31:18 01/08/2015 15:12:21 Disorder of rotator cuff 035644732 Likely rotator cuff strain, I recommend a trial of naproxen. [id number] Aravind Bird [facility] ([facility]) [address] [place] [address] 01/29/2015 09:44:59 01/29/2015 10:34:47 Disorder of rotator cuff 176793153 Likely rotator cuff strain, naproxen some help, will do PT. Essential hypertension 77374864 Near goal, continue current medication , encourage lifestyle modificati ons Low back pain 257237475 Chronic in nature, no red flags, has done injections in the past, will do a trial of PT Eruption 656517720 Left forearm, will refill hydrocorti sone cream Diabetes mellitus 67687233 Last HgA1c was 5.7, foot and eye exam are up to date, currently on metformin, I will update her labs today Tobacco user [id number] M renato Puentes desire to stop smoking, want to try the patch/ [id number] [facility] ([facility]) [address] [place] [address] 02/19/2015 11:26:02 02/19/2015 13:24:59 Disorder of rotator cuff 278131777 Likely rotator cuff strain, naproxen some help, will do PT. Low back pain 713830056 Chronic in nature, no red flags, has done injections in the past, will do a trial of PT Tobacco user [id number] M renato Puentes desire to stop smoking, recommend contacting 1800 QUIT NOW Diabetes mellitus 40822718 Last HgA1c was 5.7, foot and eye exam are up to date, currently on metformin, DM labs are up to date. [id number] [facility] [address] [place] [address] 03/26/2015 10:53:28 03/26/2015 11:26:06 Disorder of rotator cuff 146350399 Likely rotator cuff strain, naproxen some help, will do PT. 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 Essential hypertension 86324818 Near goal, continue current medication , encourage lifestyle modificati ons [id number] Aravind Bird [facility] ([facility]) [address] [place] [address] 05/04/2015 14:13:44 05/04/2015 15:56:04 HIV screening 403165273 Low back pain 035098102 Chronic in nature, no red flags, has done injections in the past, PT was helpful, I will refill her control medication . [id number] [facility] ([facility] [address] [place] [address] 06/29/2015 09:54:13 06/29/2015 10:36:39 Essential hypertension 71084530 Near goal, continue current medication , encourage lifestyle modificati ons Diabetes mellitus 51098072 Last HgA1c was 5.7, foot and eye exam are up to date, currently on metformin, DM labs ordered Low back pain 573085457 Chronic in nature, no red flags, has done injections in the past, PT was helpful, I will refill her control medication , UDS done today [id number] Aravind Bird [facility] ([facility]) [address] [place] [address] 08/31/2015 09:44:00 08/31/2015 10:23:07 Diabetes mellitus 82298604 E11.9 Last HgA1c was 5.9, foot and eye exam are up to date, currently on metformin, DM labs are up to date Essential hypertension 43028692 I10 Near goal, continue current medication , encourage lifestyle modificati ons Tobacco user 360541788 Z 72.0 Ms. Puentes desire to stop smoking, she is currently still using the vapor, recommend contacting 1800 QUIT NOW Carcinoma of breast 4010 26788 C50.919 Tamoxifen was discontinu ed, now officially past the 5 year ashish, she will need yearly clinical breast exams. Low back pain 195015306 M54.5 Chronic in nature, no red flags, has done injections in the past, PT was helpful, I will refill her control medication , UDS up to date Active immunization 3387 9002 Z23 [id number] Aravind Bird [facility] ([facility]) [address] [facility] [place] [address] 09/13/2015 09:49:45 09/13/2015 10:21:49 Active immunization 43003366 Z23 [id number] Jt Alejandra MD [facility] ([facility]) [address] [place] [address], [place] [address] 10/11/2015 14:48:46 10/12/2015 09:31:14 Low back pain 863178283 M54.5 -Chronic in nature, no red flags, has done injections in the past, PT was helpful, I will refill her chronic opioid and baclofen, UDS up-to-date Essential hypertension 17617606 I10 -BP at goal, continue current medication , encourage lifestyle modificati ons Diabetes mellitus 462768 09 E11.9 -Last HgA1c was 5.9, foot and eye exam are UTD, currently on metformin, DM labs are UTD Insomnia 413382887 G47.0 0 -pt c/o difficulty falling and staying asleep for the last 6 months, likely 2/2 inadequate sleep hygeine -pt given handout on sleep hygeine and it was discussed, will re-address at follow-up Adult heal th examination 664992411 Z00.01 -pt's last Pap was >5 years ago, advised pt to make appt for Pap at her earliest convenienc e -if Pap is negative with HPV co-testing , it would be her last Pap [id number] [facility] ([facility]) [address] [facility] [place] [address] 10/18/2015 14:50:22 10/18/2015 16:06:30 Pain in thumb 955818529 M79.643 60 yo woman bilateral intermitte nt thumb pain , worse with continue activity, prior history of CTS surgery bilateral. Otitis media 72802147 H6 6.91 Will treat with azithromyc in, patient was on PCN in september. [id number] [facility] ([facility]) [address] [facility] [place] [address] 10/22/2015 09:30:22 10/22/2015 09:57:24 Gynecologic examination 58194583 Z01.419 Pap smear and WWE done today, co testing with HPV testing pending, will follow up results, Ms. Puentes would like a call when the results of her testing are back. [id number] [facility] ([facility]) [address] [place] [address], [place] [address] 11/17/2015 12:05:58 11/17/2015 13:05:13 Otitis media 43280466 H66.91 No improvemen t, with abx use, . Low back pain 824058001 M54.5 Chronic in nature, no red flags, has done injections in the past, PT was helpful, doing well with increase physical activity- encouraged to continue I will refill her control medication , UDS up to date [id number] [facility] ([facility]) [address] [place] [address], [place] [address] 01/04/2016 16:45:20 01/04/2016 17:43:20 Essential hypertension 87865666 I10 Not at goal, asymptomat ic, patient supports discomfort , will have patient follow up on Sunday for NV for BP check. Pes anseri nus tendinitis and bursitis 260154803 M76.899 Injection done today, see procedure note for full details, recommend NSAIDs and Ice therapy as well. Encourage activity modificati on as well. diff dx MCL injury, medial meniscous, OA. If not better in a ten days will get imaging and refer to PT Low back pain 320647726 M54.5 Chronic in nature, no red flags, has done injections in the past, PT was helpful, doing well with increase physical activity- encouraged to continue I will refill her control medication , UDS up to date [id number] Aravind Bird [facility] ([facility]) [address] [place] [address] 01/07/2016 11:46:02 01/07/2016 13:12:05 Essential hypertension 92078151 I10 Not at goal, asymptomat ic, patient supports discomfort , will have patient follow up on Sunday for NV for BP check. Insomnia 814260894 G47.0 0 [id number] CARYL Vailente [facility] ([facility]) [address] [place] [address] 02/03/2016 12:10:20 02/04/2016 09:41:10 Common cold 75974271 J00 Will symptom manage at this time. Should return if not better in 5-7 days. Low back pain 619102229 M54.5 med refill, ok per Dr. Bird. [id number] Aravind Bird [facility] ([facility]) [address] [place] [address] 03/01/2016 11:41:54 03/01/2016 13:03:06 Low back pain 791267642 M54.5 Chronic in nature, no red flags, has done injections in the past I will refill her control medication , UDS up to date Knee pain 16695559 M25.5 69 61 yo woman with chronic knee pain, R > L Diabetes mellitus 403826 09 E11.9 Last HgA1c was 5.6, foot and eye exam are up to date, currently on metformin, DM labs are up to date [id number] CARYL Valiente [facility] ([facility]) [address] [place] [address] 05/30/2016 14:43:31 05/31/2016 13:06:37 Essential hypertension 17554249 I10 At goal per JNC 8. Continue current medication , DASh diet and exercise as tolerated. Diabetes mellitus 214739 09 E11.9 Due for labs. Continue current medication . Hyperlipidemia 10985777 E78.5 Due for labs, continue current medication s. Low back pain 036014136 M54.5 Needs new imaging, PT and possible MRI. Will increase meloxicam and have her try OTC lidocaine patches. Heat to back as needed. [id number] CARYL Valiente [facility] ([facility]) [address] [place] [address] 07/06/2016 14:51:22 07/07/2016 10:23:31 Headache 19257504 R51 Suspect 12/14 to recent GI illness. Has been controlled with OTC medication s. Encouraged increased water intake. [id number] CARYL Valiente [facility] ([facility]) [address] [place] [address] 07/20/2016 11:32:51 07/21/2016 15:38:20 Essential hypertension 69947990 I10 Will add beta ben. HR has been elevated and she notes occasional palpitatio ns. Knee pain 81473916 M25.5 69 Will bring back for injections once BP is controlled . [id number] CARYL Valiente [facility] ([facility]) [address] [place] [address] 08/01/2016 15:07:33 08/02/2016 12:41:37 Knee pain 52601601 M25.569 Knee injections in the office today, see procedure note Essential hypertension 23525944 I10 Better today, almost at goal on new medication . [id number] CARYL Valiente [facility] ([facility]) [address] [place] [address] 08/23/2016 10:51:35 08/24/2016 10:23:38 Essential hypertension 30090965 I10 At goal today. Continue DASH diet and exercise. Hyperlipidemia 78685791 E78.5 Needs medication refill Diabetes mellitus 545272 09 E11.9 Needs medication refill Depressive disorder 3548 9007 F33.41 Needs medication refill Knee pain 54673868 M25.5 69 Needs medication refill Active immunization 3387 9002 Z23 [id number] CARYL Valiente [facility] ([facility]) [address] [place] [address] 11/22/2016 09:56:55 11/23/2016 11:59:11 Essential hypertension 94765413 I10 At goal today. Continue DASH diet and exercise. Diabetes mellitus 936287 09 E11.9 Due for labs- has not completed A1C in over a year. Is only taking her Metformin 1x per day. Discussed diet and exercise. Low back pain 295110854 M54.5 Reports that the meloxicam is not helping her pain, would like to go back to Ibuprofen. cautioned on NSAID use and CV risk factors. [id number] [facility]L [facility] ([facility] [address] [place] [address] 12/07/2016 09:19:34 12/07/2016 16:11:36 Osteoarthritis of knee 303043688 M17.0 Will refer to ortho for further treatment. Encouraged heat to joints and light aerobic exercise. [id number] [facility]L [facility] ([facility]) [address] [place] [address] 2017 13:56:53 02/06/2017 09:44:02 Hand joint pain 744086945 M25.549 Will send for xrays and labs. Provided exercises for hand arthritis. Encouraged warm, moist heat to joints for relief and Tylenol as needed for pain. [id number] Vu Moore PA-C [facility] ([facility]) [address] [place] [address] 03/22/2017 14:51:28 03/23/2017 12:07:46 History of total knee arthroplasty 9950443410 105 Z96.659 Pt is recovering well from her left total knee replacemen t done 02/10/2017. There are no signs of infection or neurovascu lar compromise . She is currently in PT at home and has f/u with Ortho sometime in the next week. We discussed signs of infection and advised that she seek medical care immediatel y if they develop. [id number] [facility] [address] [place] [address] 04/10/2017 10:08:25 04/11/2017 09:57:11 Dysuria 80306091 R30.0 Will treat based on UA results. Will send urine for culture to ensure sensitivit ies. [id number] CARYL Valiente [facility] ([facility]) [address] [place] [address] 05/07/2017 13:42:58 05/16/2017 09:46:49 Acute otitis media 4948821 H66.93 May be otitis Externa vs otitis media. Will treat with ofloxacin drops with upcoming knee replacemen t surgery in 2 days. Should report back to office for fever. [id number] CARYL Valiente [facility] ([facility]) [address] [place] [address] 05/17/2017 14:36:44 06/11/2017 12:06:10 Diabetes mellitus 12171140 E11.9 Dur for A1C. Knee pain 89778210 M25.5 69 No concerns with surgical site. Pain well controlled . Keep close f/u with surgeon. [id number] CARYL [facility] ([facility]) [address] [place] [address] 07/03/2017 13:53:43 07/04/2017 11:51:24 Low back pain 339868351 M54.5 Would like to return back to pain management for injections . May need updated imaging. Will contact referrals department for insurance since Dr. Kirkpatrick is [facility] and may no longer accept Mcge[place] [id number] CARYL Valiente [facility] [facility]) [address] [place] [address] 08/28/2017 14:56:30 08/28/2017 16:10:46 Active or passive immunization 274891942 Z23 [id number] CARYL Valiente [facility] [facility] ([facility]) [address] [place] [address] 09/18/2017 13:53:01 09/19/2017 10:52:18 Posterior rhinorrhea 61063664 R09.82 -Diff includes viral etiology vs allergic rhinitis. Will start steriod nasal spray-RTC as needed or if fever over 100.5 develops or facial pain. [id number] C[facility]L [facility] ([facility]) [address] [place] [address] 11/22/2017 13:50:06 12/03/2017 17:40:22 Acute urinary tract infection 866346990 N39.0 Will treat based on UA results. Will send urine for culture to ensure sensitivit ies. Cervical radiculopathy 07229676 M54.12 -MRI ordered, will f/u with pt and refer to pain management per results [id number] C[facility]L [facility] ([facility]) [address] [place] [address] 12/12/2017 14:14:28 12/13/2017 16:39:46 Acute bronchitis 58424323 J20.9 -Continue nebs at home-Burst with steroid-ab x to cover for pneumonia- concern for right sided pneumonia- Report to ER for worsening symptoms. Urge incon tinence of urine 25660822 N39.41 -keep close f/u with urology, depends as needed. Cramp in lower limb 4499 42389 R25.2 -Suspect restless leg, will send to neuro with multiple areas that cramp. [id number] [facility]) [address] [place] [address] 01/16/2018 13:54:02 01/21/2018 10:50:29 Sacral back pain 11016391 M54.5 -Will send for xray-Encou raged heat and ice to area as needed-Enc ouraged to still on soft surface [id number] IVANNA Hernandezevgema [facility] ([facility]) [address] [place] [address] 05/20/2018 15:54:19 05/27/2018 10:39:08 Chronic back pain 549072316 M54.[address] Norton and feel it is appropriat e to provide Hydrocodon e Rx to pt until she is able to f/u with neurosurge ry on 07/10. We will refill meds until that time, but pt made aware that she will have to discuss appropriat e pain management with neurosurge ry after that. [id number] CARYL Valiente [facility] ([facility]) [address] [place] [address] 06/27/2018 12:11:54 07/12/2018 14:37:38 Eruption 669588770 R21 -appears to be fungal-Marlon l send to podiatry if not better with cream Chronic back pain 993716 002 M54.16 -ok to refill per Dr. Skinner-has upcoming apt with Neurosurge [id number] Usama Manuel, A [facility] [facility] ([facility]) [address] [facility] [place] [address] 12/19/2018 15:24:23 12/20/2018 08:46:56 Active or passive immunization 299709700 Z23 [id number] Harvinder (Adult Med) [address] [place] [address] 10/28/2021 10:46:59 10/28/2021 11:59:44 Degeneration of intervertebral disc 00510474 M51.9 Chronic ki dney disease stage 3 177221638 N18.30 Tobacco user 711305760 Z 72.0 Gastroesop hageal reflux disease 268576095 K21.9 Eczema 52394669 L30.9 Diabetes mellitus 554283 09 E11.9 Essential hypertension 22145640 I10 Hyperlipidemia 86240511 E78.5 Depressive disorder 3548 9007 F32.A [id number] IVANNA Puckett (Adult Med) [address] [place] [address] 11/08/2021 11:34:00 11/09/2021 13:38:23 Acute folliculitis 277841185 L73.9 left upper arm laterally Chronic ki dney disease stage 3 258396032 N18.30 Degenerati on of intervertebral disc 96400625 M51.9 Depressive disorder 3548 9007 F32.A Diabetes mellitus 375562 09 E11.9 Essential hypertension 21836976 I10 Gastroesop hageal reflux disease 211612957 K21.9 Hyperlipidemia 09889128 E78.5 Laceration - injury 3126 52005 T14.8XXD [id number] ZAHIRA Craig (Adult Med) [address] [place] [address] 11/22/2021 11:34:11 11/22/2021 17:18:32 Acute folliculitis 697807113 L73.9 left upper arm laterally Loss of hair 662571339 L 65.9 [id number] ZAHIRA Craig (Adult Med) [address] [place] [address] 01/16/2022 10:09:24 01/17/2022 08:56:49 Vitamin D below reference range 259123568 E55.9 Degenerati on of intervertebral disc 98922712 M51.9 Diabetes mellitus 820674 09 E11.9 Essential hypertension 16368382 I10 Gastroesop hageal reflux disease 818312219 K21.9 Hyperlipidemia 31898657 E78.5 Low back pain 262602920 M54.50 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 Possible acute dehydratio n , electrolyt es deficiency and acute renal failure. [id number] IVANNA Puckett (Adult Med) [address] [place] [address] 02/21/2022 09:47:59 02/22/2022 05:46:12 Chronic kidney disease stage 3 786431259 N18.30 Acute otitis media 55487 03 H66.91 Essential hypertension 76140876 I10 Gastroesop hageal reflux disease 201113453 K21.9 Hyperlipidemia 33422858 E78.5 Low back pain 955592240 M54.50 Serum karine min B12 borderline low 813260957 R79.89 Degenerati on of intervertebral disc 53297368 M51.9 Administra tion of pneumococcal vaccine 18296082 Z23 Screening for malignant neoplasm of breast 078181809 Z12.39 Screening for malignant neoplasm of colon 380131561 Z12.11 Administra tion of diphtheria and tetanus vaccine 96659039 Z23 Vitamin D below reference range 308925958 E55.9 Multiple lipomata 052812 002 D17.9 [id number] IVANNA Puckett (Adult Med) [address] [place] [address] 03/23/2022 09:43:42 03/24/2022 12:25:15 Eczema 76961370 L30.9 Loss of hair 000609522 L 65.9 Acute otitis media 45482 03 H66.91 Neuropathy due to diabetes mellitus 419584745 E11.40 Sleep apnea 57604683 G47 .30 Injury of right shoulder 9760417712 7675769 S49.91XD Hyperlipidemia 05897782 E78.5 Insomnia 414643469 G47.0 0 Low back pain 465088963 M54.50 Serum karine min B12 borderline low 631272884 R79.89 Gastroesop hageal reflux disease 352165056 K21.9 Essential hypertension 00255189 I10 Diabetes mellitus 709809 09 E11.9 [id number] IVANNA Puckett (Adult Med) [address] [place] [address] 04/27/2022 10:40:30 04/28/2022 16:52:04 Degeneration of intervertebral disc 85438928 M51.9 Acute left otitis media 978844760 H66.92 Chronic ki dney disease stage 3 266528611 N18.30 Vitamin D below reference range 781387007 E55.9 Depressive disorder 3548 9007 F32.A Eczema 29345212 L30.9 Gastroesop hageal reflux disease 302948096 K21.9 Hyperlipidemia 76561460 E78.5 Insomnia 322659840 G47.0 0 Low back pain 760057355 M54.50 Neuropathy due to diabetes mellitus 249695580 E11.40 Serum karine min B12 borderline low 255388735 R79.89 Sleep apnea 76095772 G47 .30 Diabetes mellitus 561054 09 E11.9 [id number] IVANNA Puckett (Adult Med) [address] [place] [address] 05/30/2022 13:55:57 05/31/2022 11:31:17 Injury of right shoulder 9093351251 5936904 S49.91XD Degenerati on of intervertebral disc 17052210 M51.9 Failure to lose weight 50784724 R63.8 Vitamin D below reference range 156227523 E55.9 Diabetes mellitus 691753 09 E11.9 Essential hypertension 89285943 I10 Gastroesop hageal reflux disease 702944318 K21.9 Hyperlipidemia 42020383 E78.5 Insomnia 064929445 G47.0 0 Low back pain 911974514 M54.50 Neuropathy due to diabetes mellitus 881306437 E11.40 Serum karine min B12 borderline low 719134617 R79.89 Sleep apnea 47869875 G47 .30 [id number] IVANNA Puckett (Adult Med) [address] [place] [address] 07/04/2022 10:23:03 07/05/2022 10:28:08 Degeneration of intervertebral disc 94782557 M51.9 Essential hypertension 65455135 I10 Gastroesop hageal reflux disease 967241116 K21.9 Hyperlipidemia 26656574 E78.5 Insomnia 818267621 G47.0 0 Low back pain 101547024 M54.50 Neuropathy due to diabetes mellitus 831565729 E11.40 Serum karine min B12 borderline low 735764618 R79.89 Menopause 354560984 Z78. 0 Chronic ki dney disease stage 3 003712382 N18.30 Vitamin D below reference range 002890399 E55.9 Depressive disorder 3548 9007 F32.A Sleep apnea 83847433 G47 .30 Diabetes mellitus 380729 09 E11.9 [id number] IVANNA Puckett (Adult Med) [address] [place] [address] 93088-431 0 08/04/2022 10:49:26 08/08/2022 10:20:45 Diabetes mellitus 22703352 E11.9 Screening for malignant neoplasm of breast 719534769 Z12.39 Degenerati on of intervertebral disc 20778297 M51.9 Hyperlipidemia 64441888 E78.5 Injury of right shoulder 0878094516 2260974 S49.91XD Insomnia 630138442 G47.0 0 Gastroesop hageal reflux disease 985795040 K21.9 Failure to lose weight 78081541 R63.8 Acute folliculitis 73327 7007 L73.9 left upper arm laterally Chronic ki dney disease stage 3 739065561 N18.30 Vitamin D below reference range 454420810 E55.9 Neuropathy due to diabetes mellitus 575242616 E11.40 Multiple lipomata 505465 002 D17.9 Sleep apnea 97480073 G47 .30 Tobacco user 636910651 Z 72.0 Low back pain 206071935 M54.50 [id number] [facility] [address] [place] [address] 71041-576 0 09/06/2022 11:16:07 09/08/2022 13:30:02 Depressive disorder 61751990 F32.A Dyspnea 478092798 R06.00 Insomnia 445242846 G47.0 0 Degenerati on of intervertebral disc 85081262 M51.9 Administra tion of influenza vaccine 89851124 Z23 Screening for malignant neoplasm of breast 176963207 Z12.39 [id number] [facility] [address] [place] [address] 90787-619 0 10/23/2022 10:50:05 10/25/2022 15:32:21 Musculoskeletal pain 496151011 M79.10 Depressive disorder 3548 9007 F32.A Diabetes mellitus 422842 09 E13.42 Essential hypertension 77313568 I10 Hyperlipidemia 20797917 E78.5 Degenerati on of intervertebral disc 58257422 M51.9 Insomnia 195837989 G47.0 0 Vitamin D deficiency 347 78755 E55.9 Gastroesop hageal reflux disease 921775568 K21.9 Chronic ki dney disease stage 3 391144952 N18.30 Medication monitoring 39 9238050 Z51.81 [id number] MD Harvinder Almonte (Adult Med) [address] [place] [address] 18336-602 0 01/22/2023 11:45:44 01/24/2023 11:06:13 Vitamin deficiency 73298435 E56.9 Obesity 728029169 E66.9 Degenerati on of intervertebral disc 26762473 M51.9 [id number] MD Harvinder Almonte (Adult Med) [address] [place] [address] 16296-894 0 04/02/2023 12:09:45 04/03/2023 13:45:57 Obesity 818546718 E66.9 Muscle pain 50398600 M79 .10 Degenerati on of intervertebral disc 34978580 M51.9 Vitamin D below reference range 967302192 E55.9 Vitamin deficiency 70528 002 E56.9 Essential hypertension 97670926 I10 Hyperlipidemia 35152756 E78.5 Failure to lose weight 67811715 R63.8 [id number] Moo Appiah MD [facility] (Adult Med) [address] [place] [address] 93427-849 0 05/03/2023 10:28:22 05/07/2023 12:05:43 Obesity 830077568 E66.9 Low back pain 144249834 M54.50 refer to ortho. Will increase hydrocodon e to 7.5 mg Impacted cerumen 6041126 6 H61.23 Cobalamin deficiency 190 918836 E53.8 [id number] Jt Ga MD [facility] [address] [place] [address] 05/29/2023 10:57:44 05/30/2023 09:47:57 Otitis externa 8126001 H60.93 keep ears dry follow-up 2 weeks Dermatitis of external ear 033220692 H60.93 [id number] MD Harvinder Almonte (Adult Med) [address] [place] [address] 14657-517 0 06/04/2023 11:21:37 06/05/2023 10:10:08 Obesity 363246076 E66.9 Low back pain 166233999 M54.50 refer to ortho. Will increase hydrocodon e to 7.5 mg Cobalamin deficiency 190 284611 E53.8 Bilateral cramp of muscle of lower limbs 9731441233 6860816 R25.2 Itching of both hands 89 1871678 L29.8 [id number] Jt Ga MD [facility] [address] [place] [address] 06/18/2023 10:55:40 06/20/2023 09:42:20 Sensorineural hearing loss of bilateral ears 256419490 H90.3 follow-up after audiogram [id number] MD Harvinder Celeste (Adult Med) [address] [place] [address] 25479-590 0 07/31/2023 10:29:22 08/03/2023 13:06:06 Screening for malignant neoplasm of cervix 794571008 Z12.4 Mass of left breast 1224 996933 0315238 N63.20 Colorectal cancer detected by DNA-based stool screening 882846600 R19.5 Nicotine d ependence in remission 564804564 F17.201 May qualify for LDCT. Will discuss at follow up. Osteopenia 417848405 M85 .80 Taking Vitamin D and Calcium. Had Dexa scan in 2021 which showed osteopenia and not osteoporos is. No changes that would dramatical ly influence bone loss so no need to repeat at this time. Would recommend continuing Vitamin D and Calcium. [id number] ZAHIRA Byers (Adult Med) [address] [place] [address] 57815-144 0 07/05/2023 10:52:34 07/10/2023 13:10:10 Cobalamin deficiency 556745633 E53.8 [id number] MD Harvinder Almonte (Adult Med) [address] [place] [address] 17169-964 0 07/24/2023 11:35:34 07/27/2023 17:11:45 Chronic kidney disease stage 3 389043203 N18.30 Diabetes mellitus 866033 09 E13.42 Hyperlipidemia 59382968 E78.5 [id number] ZAHIRA Byers (Adult Med) [address] [place] [address] 06412-667 0 08/02/2023 10:36:21 08/07/2023 11:49:48 Cobalamin deficiency 300781345 E53.8 [id number] MD Harvinder Celeste (Adult Med) [address] [place] [address] 67661-165 0 09/17/2023 11:17:13 09/18/2023 11:54:11 Cough 98635258 R05.9 Bilateral rhonchi with productive cough. No respirator y distress. Possible pneumonia. Will treat with antibiotic and Albuterol. Seek medical attention if not improving by later in the week or if worse. Nicotine user 432719460 Z72.[address] We will let her know if it is approved and then she can proceed with getting it done. Mammograph ic calcification of left breast 9572218058 1171746 R92.1 No change. Continue yearly breast exam and mammogram. [id number] MD Harvinder Almonte (Adult Med) [address] [place] [address] 96317-970 0 10/22/2023 11:23:35 10/23/2023 15:34:18 Obesity 106945113 E66.9 Chronic ki dney disease stage 3 802210301 N18.30 F/U nephrology Diabetes mellitus 127526 09 E13.42 F/U endocrinol ogy Neuropathy due to diabetes mellitus 304425049 E11.40 Pain of ri ght knee region 9201243563 66754 M25.561 Refer to ortho Low back pain 868314767 M54.50 refer to ortho. Will increase hydrocodon e to 7.5 mg Pain of ri ght shoulder joint 1136082084 5715448 M25.511 Refer to ortho Disorder of scalp 634544 006 L98.9 [id number] MD Harvinder Almonte (Adult Med) [address] [place] [address] 95023-889 0 12/31/2023 11:25:01 01/08/2024 12:06:40 Obesity 781026512 E66.9 Chronic ki dney disease stage 3 507413202 N18.30 F/U nephrology Low back pain 347057619 M54.50 Add Duloxetine Cobalamin deficiency 190 168362 E53.8 [id number] MD Harvinder Almonte (Adult Med) [address] [place] [address] 79323-875 0 05/07/2024 11:47:17 05/10/2024 08:12:39 Obesity 049637145 E66.8 Nocturnal muscle spasm 30112030 R25.2 Has been off gabapentin Chronic ki dney disease stage 3 585460820 N18.30 F/U nephrology Cobalamin deficiency 190 192133 E53.8 Degenerati on of intervertebral disc 73966669 M51.9 Diabetes mellitus 079479 09 E13.42 F/U endocrinol ogy Essential hypertension 49314511 I10 Gastroesop hageal reflux disease 803898707 K21.9 Hyperlipidemia 02967048 E78.5 Low back pain 297430451 M54.50 Add Duloxetine [id number] Moo Appiah MD [facility] (Adult Med) [address] [place] [address] 34112-836 0 09/29/2024 09:53:03 10/07/2024 15:14:34 Essential hypertension 68645022 I10 Gastroesop hageal reflux disease 017778091 K21.9 Hyperlipidemia 61770466 E78.5 Neuropathy due to diabetes mellitus 369274469 E11.40 Low back pain 119177572 M54.50 Duloxetine stopped due to dizziness. Will increase gabapentin Health Concerns Section Related Observation LastModified by Organization Detai ls LastModified Time None Recorded Concern Status LastModified by Organization Details LastModified Time None Recorded Advance Directives Directive N: Payers Encounter Date Sequence Insurance Name Policy Number Policy Viveros Covered Member ID Viveros Member ID Guarantor Name 09/17/2023 1 [facility] (MEDICARE REPLACEMENT/AD VANTAGE - HMO) [id number] Madeline Puentes [id number] Madeline Puentes 09/17/2023 2 [place] MED[place]ARE OR MEDICARE REPLACEMENT PRIMARY) Madeline Puentes [id number] Madeline Puentes 10/22/2023 1 [facility] (MEDICARE REPLACEMENT/AD VANTAGE - HMO) [id number] Madeline Puentes [id number] Madeline Puentes 10/22/2023 2 [place]IC[place]PLACEMENT PRIMARY) Madeline Puentes [id number] Madeline Puentes 12/31/2023 1 [facility] (MEDICARE REPLACEMENT/AD VANTAGE - HMO) [id number] Madeline Puentes [id number] Madeline Puentes 12/31/2023 2 [place] OR [place]ICARE REPLACEMENT PRIMARY) Madeline Puentes [id number] Madeline Puentes 05/07/2024 1 [facility] (MEDICARE REPLACEMENT/AD VANTAGE - HMO) [id number] Madeline Puentes [id number] Madeline Puentes 05/07/2024 2 [place] OR MEDICARE REPLACEMENT PRIMARY) Madeline Puentes [id number] Madeline Puentes 09/29/2024 1 [facility] (MEDICARE REPLACEMENT/AD VANTAGE - HMO) [id number] Madeline Puentes [id number] Madeline Puentes 09/29/2024 2 [place] WHEN [place] OR MEDICARE REPLACEMENT PRIMARY) Madeline Puentes [id number] Madeline Puentes Notes Date Note Type Note Provider Name and Address Organization Details Recorded Time 09/17/2023 text/html here for follow up, would like results of PAP and mammogram, had a breast biopsy in the past and was told could have routine mammograms after that, has colonscopy scheduled for Oct [address] Michelle, never had an abnormal PAP, has had six partners in lifetime, never had STI infections, last PAP we have in chart was in 2014, has gotten behind on PAPs, has never had an abnormal PAP, smoked forty years and a deniz lasted three days, woke up with bad cold and sore throat, has had it since , cough productive of colored phlegm, used to have nebulizer but it broke, did not have asthma when younger, started using inhaler as an adult, was vaping up until a few months ago Heather Villasenor MD Attn: Accounting[address] [facility], [place], [address], [place] [facility] 09/17/2023 13:00:55 10/22/2023 text/html Has limited mobility in right knee and shoulder. Recent colonoscopy reportedly normal. Requesting refill of head shampoo Moo Appiah MD Attn: Accounting[address] [facility], [place], [address], [place] [facility] 10/22/2023 12:31:38 12/31/2023 text/html Back pain is worsening. Needs to see someone for her back. Had back surgery several years ago Moo Appiah MD Attn: Accounting[address] [facility], [place], [address], [place] [facility] 12/31/2023 12:19:04 05/07/2024 text/html Has jerking sensation in arms and legs in the evening for two months. Leg cramps no longer present. Stopped duloxetine because it made her drowsy. Referred to NS at [facility] Moo Appiah MD Attn: Accounting[address] [place], [address], [facility] 05/07/2024 12:41:59 09/29/2024 text/html Here for DM f/u. Has been using more med for her back pain due to increased pain after 4-6 hours. She was unable to tolerate duloxetine 30 mg due to dizziness Moo Appiah MD Attn: Accounting[address] [place], [address], [facility] 09/29/2024 11:05:02 OBGyn Episode No OBEpisode recorded.
--- OUTSIDE RECORDS SUMMARY | 2025-01-07 15:06 | XMS_ITS | Encounter Summary ---
Author Organization [facility] Address [address] [place] [address] Care Team Providers Care Seed Production Field Supervisor Name Role Phone Uche Gardner MD Unavailable Eloise Leija MD Unavailable [phone] Marcelino Kwong MD Primary Care Provider U Twyla Cardona NP Primary Care Provider [phone] Encounter Details Date Type Department Care Team (Late st Contact Info) Description 06/28/2021 Medication Management [facility] Family & Internal Medicine [facility] [address] [place] [address] Marcelino Kwong MD Social History Tobacco Use Types Packs/Day Years Used Date Smoking Tobacco: Former Cigarettes 1 49 1 966 - 2014 Electronic Cigarettes Smokeless Tobacco: Never Alcohol Use Standard Drinks/Week Comments No 0 [...] file Not on file Not on file COVID-19 Exposure Response Date Recorded In the last month, have you been in contact with someone who was confirmed or suspected to have Coronavirus / COVID-19? No / Unsure 06/29/2021 10:50 AM CDT documented as of this encounter Plan of Treatment Not on file documented as of this encounter Visit Diagnoses Not on filedocumented in this encounter Additional Health Concerns Assessment Noted Time PHQ-9 Depression Total Score: 0 05/04/20 21 1:14 PM CDT documented as of this encounter Care Teams Seed Production Field Supervisor Relationship Specialty Start Date End Date Marcelino Kwong MD [facility]. [address] [place] [address] PCP - General INTERNAL MEDICINE 05/04/21 02/15/23 [place] [address] [facility], [address] [place] [address] PCP - General Nurse Practitioner Family 02/16/23 02/22/23 Uche Gardner MD Surgeon NEUROLOGICAL SURGERY 07/25/18 Eloise Tse MD [facility]. [address] [place] [address] [place] Pest Control Worker INTERVENTIONAL CARDIOLOGY 07/30/18 documented as of this encounter
== END 2025-01-07 13:21 | disposition home or self-care (01) ==
LOC: ANHLAB 13:23
PROVIDERS: PCP Internal Medicine
DX: J06.9 Acute upper respiratory infection, unspecified (principal)
CPT/HCPCS: 87637

== ENCOUNTER 2025-05-29 08:21 | Outpatient (CLI) | payer MEDICARE, SELFPAY ==
--- NOTE | ~2025-05-29 | CT_ITS ---
CT Scan of the Chest without Contrast: Clinical Indication: Lung cancer screening, nicotine dependence Technique: Contiguous sections were acquired throughout the chest without intravenous contrast. Dose reduction technique was used on this scan by utilizing automated exposure control and iterative recon struction technique. The dose-length product (DLP) was 76.97 mGy-cm. Findings: There is no evidence of any significant mediastinal, hilar or axillary lymphadenopathy. The mediastin al soft tissues appear normal. There is no evidence of pleural or pericardial effusion. The lungs are clear. No pulmonary nodules or infiltrates are noted. Images through the upper abdomen reveal no abnormalities. Extensive DISH of the thoracic spine noted. Impression: Lung RADS 1: Negative. 12 month follow-up screening CT advised. Reviewed, dictated and finalized at location . Impression: Lung RADS 1: Negative. 12 month follow-up screening CT advised.
--- OUTSIDE RECORDS SUMMARY | 2025-05-29 08:32 | XMS_ITS | Encounter Summary ---
Author Organization [facility] Address [address] [place] [address] Care Team Providers Care Change Person Name Role Phone Uche Gardner MD Unavailable Eloise Leija MD Unavailable [phone] Marcelino Kwong MD Primary Care Provider U Twyla Cardona NP Primary Care Provider [phone] Encounter Details Date Type Department Care Team (Late st Contact Info) Description 06/28/2021 Medication Management [facility] Medical Group Family & Internal Medicine [facility] [address] [place] [address] Marcelino Kwong MD Social History [...] documented as of this encounter Care Teams Change Person Relationship Specialty Start Date End Date Marcelino Kwong MD [facility]. [address] [place] [address] PCP - General INTERNAL MEDICINE 05/04/21 02/15/23 [place] [address] [facility], [address] [place] [address] PCP - General Nurse Practitioner Family 02/16/23 02/22/23 Uche Gardner MD Surgeon NEUROLOGICAL SURGERY 07/25/18 Eloise Tse MD [facility]. [address] [place] [address] [employer] [employer] Appraiser INTERVENTIONAL CARDIOLOGY 07/30/18 documented as of this encounter
--- OUTSIDE RECORDS SUMMARY | 2025-05-29 08:32 | XMS_ITS | Clinical Summary ---
Author Organization [facility] Address [address] [place] [address] Care Team Providers Care Linoleum Floor Layer Name Role Phone Uche Gardner MD Unavailable UnavailEloise Reeves MD Unavailable [phone] Allergies No known active allergies Medications montelukast [...] complication, without long-term current use of insulin ([facility]) 06/15/2021 Conductive hearing loss, bilateral 06/02/2021 Other [...] hematuria 06/24/20122020 Colon cancer screening 05/16/201207/04 Immunizations Immunization Administration Dates Next Due Fluzone High Dose [...] 11:10 AM CDT Height 157.5 cm (5' 2) 09/07/2021 11:1 0 AM CDT Body Mass Index 38.01 09/07/2021 11:10 AM CDT Plan of Treatment Health Maintenance Due Date Last Done Comments Kidney Health Evaluation 1955 Diabetes: Retinopathy Eye Exam 1973 Hepatitis C 1973 DTaP, Tdap and Td Vaccines (1 - Tdap) 1974 Mammogram Screening 1995 Pneumococcal Vaccine: 50+ Years (2 of 2 - PPSV23) 11/08/2015 09/13/2015 Annual Medicare Wellness Visit 02/06/2020 Hemoglobin A1C 12/03/2021 06/02/2021, 09/25/2018 Lipid Panel 01/10/2022 01/10/2021, 06/0 07/2020, 11/11/2018, Additional history exists COVID-19 Vaccine ( season) 2024 01/25/2021, 01/25/2021, 01/02/2021 Colorectal Cancer Screening FIT-DNA (3 Years) 07/19/2024 07/19/2021, 07/19/2021 RSV Immunization or 60+ Years (1 - 1-dose 75+ series) 2030 Zoster Vaccines Completed 11/26/2020, 11/0 07/2020, 08/11/2020 Dexa Scan (General) Completed 07/26/2022 Meningococcal B Vaccine Aged Out No l onger eligible based on patient's age to complete this topic Meningococcal Vaccine Aged Out No maribel kennedi eligible based [...] complication, without long-term current use of insulin LIPID PANEL Routine 01/10/2021 10:06 AM BREAK UP WORKER Chronic kidney disease, stage III (moderate) Hyperlipemia from Last 3 Months or Most [...] Dante Mathews MD, 07/26/2022 3:49 PM Griffin Reilly PA DEXA Final Re sult * (ABNORMAL) COLOGUARD ([employer]) (07/19/2021 10:00 AM CDT) COLOGUARD RESULT Positive( A) Negative [facility] (CLIA #:[id number]) Comment: POSITIVE TEST RESULT. A positive Cologuard [...] screened with both Cologuard and colonoscopy. (Jw Theodore, N Engl J Med 2014;370(14):7370-8306.) Cologuard may produce a false negative or false positive result (no colorectal cancer or precancerous polyp present at colonoscopy follow up). A negative Cologuard test result does not guarantee the absence of CRC or advanced adenoma (pre-cancer). The current Cologuard screening interval is every 3 years. ([place] Cancer Society and U.S. Multi-Society Task Force). Cologuard performance data in a 10,000 patient pivotal study using colonoscopy as the reference method can be accessed at the following location: [email or web address]/results. Additional description of the Cologuard test process, warnings and precautions can be found at [email or web address]. Stool specimen (specimen) STOOL SPECIMEN / Unknown 07/19/2021 10:00 AM CDT 07/20/2021 1:15 PM CDT Marcelino Kwong MD BODY FLUIDS AND STOOLS O RDERABLES Final Result Performing Organization Address City/[facility]/ZIP Co de Phone Number [employer] ([employer] [address]) [address] [place] [address], [facility] (CLIA #:[id number]) [address] [place] [address] * HEMOGLOBIN, GLYCOSYLATED (06/02/2021 9:12 AM CDT) HGB A1C 6.2 % [id number] RICKI JAMES Blood specimen (specimen) 06/02/2021 9:12 AM CDT us Marcelino Kwong MD LABORATORY Final Re sult [id number] RICKI CURRY[address] [place] [address], [place] [phone] * (ABNORMAL) LIPID PANEL (01/10/2021 10:06 AM BREAK UP WORKER) CHOLESTEROL 121 <200 MG/DL 01/10/2021 11:10 AM [facility] TRIGLYCERIDES 176(H) <150 MG/DL 01/10/2021 11:10 AM [facility] HDL 39(L) >40.0 MG/DL 01/10/2021 11:10 AM [facility] LDL (CALCULATED) 47 <100 MG/DL 01/10/2021 11:10 AM [facility] NON HDL CHOLESTEROL 82 <130 MG/DL 01/10/2021 11:10 AM [facility] CHOL/HDL RATIO 3.1 0.0 - 4.5 01/10/2021 11:10 AM [facility] VLDL CALCULATION 35 5 - 55 MG/DL 01/10/2021 11:10 AM [facility] LIPID INTERPRETATION 01/10/2021 11:10 AM [facility] Comment: NIH CONCENSUS REPORT RECOMMENDATIONS: ADULT CHILD LOW RISK: CHOLESTEROL <200 <170 TRIGLYCERIDE <150 --- HDL >=60 --- LDL <100 <110 BORDERLINE: CHOLESTEROL 200-239 170-199 TRIGLYCERIDE 150-199 --- HDL 40-59 --- LDL 100-159 110-129 HIGH RISK: CHOLESTEROL >=240 >=200 TRIGLYCERIDE >=200 --- HDL <40 --- LDL >=160 >=130 01/10/2021 10:0 6 AM BREAK UP WORKER Jere Alfred MD LABORATORY Final Result [facility] [address] [place] [address], [place] [phone] from Last 3 Months or Most Recently Relevant to Health Maintenance Insurance MEDICAID Member Subscriber Plan / Payer (Ef fective 2020-Present) Name:Madeline Puentes Mariia Relation to Subscriber:Self Name:Madeline Puentes Payer ID:Not on file Group ID:Not on file Type:Not on file Address: [place] [id number] [facility] MEDICAID Advance Directives * Full Code (Latest Code Status on File) Date Activated Date Inactivated Comments 09/25/2018 6:39 PM 09/27/2018 5:30 PM Care Teams Linoleum Floor Layer Relationship Specialty Start Date End Date Uche Gardner MD Surgeon NEUROLOGICAL SURGERY 07/25/18 Eloise Tse MD [address] [address] [place] Bilingual Speech Language Pathologist INTERVENTIONAL CARDIOLOGY 07/30/18
== END 2025-05-29 08:22 | disposition home or self-care (01) ==
PROVIDERS: Visit Provider Internal Medicine Infectious Disease
DX: Z12.2 Encounter for screening for malignant neoplasm of respiratory organs (principal); Z87.891 Personal history of nicotine dependence
CPT/HCPCS: 71271

== ENCOUNTER 2025-08-07 11:00 | Outpatient (RCR) | payer MEDICARE, MEDICAID, SELFPAY ==
--- NOTE | 2025-07-02 09:55 | OPREHPOC ---
Outpatient Therapy Plan of Care This is a Multidisciplinary Plan of Care that may contain components documented by all disciplines (PT, OT, and ST.) PT Problem 1 PT Problem #1 Knowledge Deficit PT Goal 1 Goal / Goal Update *independent with HEP Target Visit 8 PT Problem 2 PT Problem #2 Pain PT Goal 1 Goal / Goal Update *1 pt report pain at worst rating of 6/10 2* pt report walking 45 minutes Target Visit 8 PT Problem 3 PT Problem #3 Impaired Flexibility PT Goal 1 Goal / Goal Update increase flexibility of hamstring to decrease strain on knee: supine SLR to 80' 1* R 2* L Target Visit 8 PT Problem 4 PT Problem #4 Impaired Strength PT Goal 1 Goal / Goal Update 1increase strength of R and L hips and knees to 4+/5 to improve stability to knee joints single leg standing x 10 seconds with good stability 2* R 3* L Target Visit 8
--- NOTE | 2025-07-02 09:56 | PTOPEVAL1 ---
Assessment and note entered by Ml Mares, PT Evaluation Information Assessment Status Evaluation ICD-10 Condition Codes (PT) Pain in right knee M25.561,Pain in left knee M25. 562 Onset over 1 year Subjective Information both knees hurt, R more than L; R feels like going to give out; trying to walk more, but knees hurt and back hurts- can go about 30 minutes; does not do any leg exercises; does not use assistive device; in the past 6 months, have had 3 falls: not sure how fall, shoe caught, fell forward; Medical history includes: R partial knee and L total knee replacement; lumbar fusion, back pain with recent injections; activity: home with her 33 year old autistic grandson; Reported Pain Level Pain Score 0: Self Report Additional Pain Score Comments pain range of the past week 0-9/10; R > L knee increase pain: walking over 30 minutes, stairs decrease pain: sit, rest, muscle cream, heat pad- helps a little is not taking any pain meds at all now--did have hydrocodone from previous dr, but out and not taking anything Assessment PT Clinical Summary Madeline has the diagnosis of R and L knee pain. LE functional scale rating of 58% limitation in activity level. She reports limited walking and home activity, stairs due to knee pain. Medical history includes R partial and L TKR, back surgery, chronic back pain with recent injections . With the evaluation: ROM of R and L knee is WNL and no pain with active motion; weakness of bilateral hips and knees, with poor single leg standing; decrease flexibility of bilateral hamstrings. Skilled PT services are indicated for modalities to decrease pain, therapeutic exercises to increase knee strength and hamstring flexibility with monitoring LBP with activity increase, and education for HEP and pain control techniques. Plan of Care Interventions Electrical Stimulation,Hot Pack/Cold Pack,Manual Therapy,Neuro Re-education,Patient/Caregiver Education,Therapeutic Activities,Therapeutic Exercise,Ultrasound,Other Other Interventions taping PT Services Indicated Yes Treatment Frequency and 1-2x/wk for 8 visits Duration These treatments will address the objective and functional deficits as defined above. The patient will be advanced safely and appropriately in order for the patient to progress towards his/her prior level of function. Additional exercises will be introduced and as well as a comprehensive home exercise program upon discharge, if needed, ?to ensure carryover of functional gains achieved in the clinic. This treatment plan has been reviewed and agreement upon by the patient.
--- NOTE | 2025-07-24 11:08 | PCPTNOTE ---
Pt was a no show, no call for today's appointment.
--- NOTE | 2025-07-28 09:16 | PCPTNOTE ---
Called pt at 9:10 to remind her of her 9:00 appt. She said she could not make it but could do a later. I rescheduled her for 11:15 at pt request. VALERIE
--- NOTE | 2025-07-28 11:49 | PCPTNOTE ---
No call no show, even though I just talked with her this morning and she rescheduled at this time. ANUPAMAS
--- NOTE | 2025-08-07 11:44 | OPREHPOC ---
Outpatient Therapy Plan of Care This is a Multidisciplinary Plan of Care that may contain components documented by all disciplines (PT, OT, and ST.) PT Problem 1 PT Problem #1 Knowledge Deficit PT Goal 1 Goal / Goal Update *independent with HEP 08-07-25 d/c goal met Target Visit 8 Progress Met PT Problem 2 PT Problem #2 Pain PT Goal 1 Goal / Goal Update *1 pt report pain at worst rating of 6/10 2* pt report walking 45 minutes 08-07-25 d/c goals not met: #1, 07/22 and #2, 30 minutes Target Visit 8 Progress Not Met PT Problem 3 PT Problem #3 Impaired Flexibility PT Goal 1 Goal / Goal Update increase flexibility of hamstring to decrease strain on knee: supine SLR to 80' 1* R 2* L 08-07-25 d/c goal not met, 70' Target Visit 8 Progress Not Met PT Problem 4 PT Problem #4 Impaired Strength PT Goal 1 Goal / Goal Update 1increase strength of R and L hips and knees to 4+/5 to improve stability to knee joints single leg standing x 10 seconds with good stability 2* R 3* L 08-07-25 d/c goal #1, 4/5; #2 and 3 met for time, but not steady Target Visit 8 Progress Partially Met
--- NOTE | 2025-08-07 11:44 | PTOPDC ---
Assessment and note entered by Ml Mares, PT Assessment Status Discharge ICD-10 Condition Codes (PT) Pain in right knee M25.561,Pain in left knee M25. 562 Onset over 1 year Subjective Information feel like legs are about the same; R knee hurts more than L knee- feel like I may have to have more knee surgery; having more pain in low back; some of the exercises doing in therapy, hurt my back and not so bad on my knees; have not had any falls since coming for therapy; go to see pain management dr for back pain next week; Reported Pain Level Pain Score Self Report Additional Pain Score Comments pain range in the past week: 4-8/10; knees always hurt R > L also have back pain increase pain: standing/walking 30 minutes; more back pain causes more knee pain decrease pain: ice, sit and rest, prescription pain meds. Assessment PT Clinical Summary Madeline has received 6 PT sessions for bilateral knee pain. Compared to the initial evaluation: pain from 0-9 /10 to 4-8/10; reported tolerance with walking/ standing is the same at 30 minutes; self assessment with LE functional scale rating rom 58 to 53% limitation in activity level; increase of gross strength of LE from 4- to 4/5; hamstring length is the same at 70' with SLR; education for HEP completed. The goals were partially achieved. Discharge PT. She is to continue with her HEP and activity as tolerated. Discussed fitness center with pt for continuing with exercises, water exercises and recumbent stepper. Plan of Care PT Services Indicated No
== END 2025-08-07 12:59 | disposition home or self-care (01) ==
LOC: ANHPT 11:00
PROVIDERS: Visit Provider Physician Assistant Surgical
DX: M25.561 Pain in right knee (principal)
CPT/HCPCS: 97110; 97161; 97530

== ENCOUNTER 2025-10-29 01:04 | Day surgery (SDC) | payer MEDICARE, MEDICAID, SELFPAY ==
[2025-10-13 11:14] VITALS: BMI 27.4
[2025-10-29 08:10] VITALS: BP 133/72; PULSE 77; RESP 18; TEMP 36.1; O2SAT 98; BMI 28.3
--- NOTE | 2025-10-29 08:21 | WPDANESEPPF ---
Anes - Initial Pre Proc Eval Procedure: Operation Date: 10/29/25 09:30 Proposed Procedures p Screening Colonoscopy - Isidro Mclaughlin MD Date/Time: 10/29/25 08:21 Surgeon: Isidro Mclaughlin MD Pre Op Diagnosis: positive cologuard/screening Patient Data Age: 70 Gender: F Height: 1.57 m Weight: 70.1 kg Last Vital Signs Temp 97 F L 10/29/25 08:10 Pulse 77 10/29/25 08:10 Resp 18 10/29/25 08:10 BP 133/72 10/29/25 08:10 Pulse Ox 98 10/29/25 08:10 O2 Del Method Room Air 10/29/25 08:10 Allergies Allergy/AdvReac Type Severity Reaction Status Date / Time No Known Allergies Allergy Verified 10/29/25 08:09 Home Medications ?Medication ?Instructions ?Recorded ?Confirmed ?Type cholecalciferol (vitamin D3) 50 50 mcg PO DAILY 10/13/24 10/29/25 History mcg (2,000 unit) capsule escitalopram oxalate 10 mg tablet 10 mg PO DAILY #90 tabs 08/17/25 10/29/25 Rx fenofibrate 160 mg tablet 160 mg PO DAILY #90 tabs 08/17/25 10/29/25 Rx gabapentin 100 mg capsule 100 mg PO BID #180 caps 08/17/25 10/29/25 Rx hydrocodone 7.5 mg-acetaminophen 1 tablet PO BID PRN pain 08/17/25 10/13/25 History 325 mg tablet lisinopril 20 mg tablet 20 mg PO DAILY #90 tabs 08/17/25 10/29/25 Rx blood sugar diagnostic (Accu-Chek #120 ea 08/18/25 10/13/25 Rx Guide test strips) blood-glucose meter (Accu-Chek #1 ea 08/18/25 10/13/25 Rx Guide Glucose Meter) lancets (Accu-Chek Softclix #100 ea 08/18/25 10/13/25 Rx Lancets) tirzepatide 15 mg/0.5 mL 15 mg (0.5 mL) subcut WEEKLY #6 mL 09/23/25 10/29/25 Rx subcutaneous pen injector (Lakesha) Patient hx anesthesia problems: none Family hx anesthesia problems: none Results Review: All pre-operative results and documents have been reviewed as part of the pre-operative evaluation. [facility] Past Medical History Medical History History of tobacco abuse Positive colorectal cancer screening using Cologuard test Breast cancer, left Asthma Chronic kidney disease, stage 3 Diabetes mellitus type 2 with complications Hyperlipidemia Hypertension Surgical History Surgical History Status post left breast lumpectomy Previous back surgery Hx of knee surgery Family History Family History Mother Kidney failure Hypertension Father Kidney failure Hypertension Sibling Lupus Sibling Leg sore Swollen leg Sibling Suicide and self-inflicted injury by hanging Sibling in accident and emergency department Social History Social History Smoking status: Former smoker Tobacco type: cigarettes Second hand tobacco smoke exposure: No Alcohol intake: never Substance use: never Substance use type: does not use Living arrangements: with family Spiritual care concerns: No Agree to blood products: Yes Anes - Eval Final PreProcedure Day of Procedure 10/29/25 08:21 Patient weight: overweight Lungs: normal air movement Airway: Mallampati scale class II and special considerations (Edentulous. ) Neurological: alert and oriented Last oral intake: >/= 8 hours ASA classification: III Emergent: no Anesthetic plan: proceed Anesthesia type and monitoring: general GIVS and standard monitoring Results Review: All pre-operative results and documents have been reviewed as part of the pre-operative evaluation. HTN, hyperlipidemia, ex smoker quit 2014, DM, hx of breast ca, treated w radiation/chemo long in the past, active w walking short distances, no cp or sob. Informed Consent: The patient's anesthetic plan and its attendant risks and benefits were discussed with the patient/family/POA. Questions were solicited and answers provided to the satisfaction of the patient/family/POA.
[2025-10-29] MEDS: LACTATED RINGERS 1,000 ML 150 ML IV CONT (08:25)
--- NOTE | 2025-10-29 09:04 | PM.HPGS ---
History of Present Illness History of Present Illness Consent: Risks, benefits, and alternatives have been discussed and questions answered. Patient agrees to proceed with procedure. Chief complaint: positive cologuard/screening Narrative: Madeline Puentes is a 70 year old female with + cologuard, last colonoscopy over 10 years ago Review of Systems Review of Systems: All systems reviewed & are unremarkable except as noted in HPI and below PMFSH Past Medical History Medical History History of tobacco abuse Positive colorectal cancer screening using Cologuard test Breast cancer, left Asthma Chronic kidney disease, stage 3 Diabetes mellitus type 2 with complications Hyperlipidemia Hypertension Surgical History Surgical History Status post left breast lumpectomy Previous back surgery Hx of knee surgery Family History Family History Mother Kidney failure Hypertension Father Kidney failure Hypertension Sibling Lupus Sibling Leg sore Swollen leg Sibling Suicide and self-inflicted injury by hanging Sibling in accident and emergency department Social History Social History Smoking status: Former smoker Tobacco type: cigarettes Second hand tobacco smoke exposure: No Alcohol intake: never Substance use: never Substance use type: does not use Living arrangements: with family Spiritual care concerns: No Agree to blood products: Yes Meds Home Medications and Allergies Home Medications ?Medication ?Instructions ?Recorded ?Confirmed ?Type cholecalciferol (vitamin D3) 50 50 mcg PO DAILY 10/13/24 10/29/25 History mcg (2,000 unit) capsule escitalopram oxalate 10 mg tablet 10 mg PO DAILY #90 tabs 08/17/25 10/29/25 Rx fenofibrate 160 mg tablet 160 mg PO DAILY #90 tabs 08/17/25 10/29/25 Rx gabapentin 100 mg capsule 100 mg PO BID #180 caps 08/17/25 10/29/25 Rx hydrocodone 7.5 mg-acetaminophen 1 tablet PO BID PRN pain 08/17/25 10/13/25 History 325 mg tablet lisinopril 20 mg tablet 20 mg PO DAILY #90 tabs 08/17/25 10/29/25 Rx blood sugar diagnostic (Accu-Chek #120 ea 08/18/25 10/13/25 Rx Guide test strips) blood-glucose meter (Accu-Chek #1 ea 08/18/25 10/13/25 Rx Guide Glucose Meter) lancets (Accu-Chek Softclix #100 ea 08/18/25 10/13/25 Rx Lancets) tirzepatide 15 mg/0.5 mL 15 mg (0.5 mL) subcut WEEKLY #6 mL 09/23/25 10/29/25 Rx subcutaneous pen injector (Lakesha) Allergies Allergy/AdvReac Type Severity Reaction Status Date / Time No Known Allergies Allergy Verified 10/29/25 08:09 Vital Signs Vital Signs - 24 hr 10/29/25 08:10 Temperature 97 F L Pulse Rate 77 Respiratory Rate 18 Blood Pressure 133/72 Pulse Oximetry 98 Oxygen Delivery Room Air Exam Const: General: comfortable and no acute distress HENMT: Face/Nose/Sinus: Normal nares present Eyes: General: appearance normal, both eyes and all related structures Neck: Neck: no JVD Resp: Auscultation: clear to auscultation bilaterally Cardio: Rate: regular rate Rhythm: regular rhythm GI: Inspection: non-distended GI Palp: Yes Soft to palpation Skin: General skin exam: normal color Extrem: General: normal to inspection Psych: Mental Status: mental status grossly normal Assessment and Plan Assessment and plan (1) Positive colorectal cancer screening using Cologuard test: Code(s): R19.5 - Other fecal abnormalities Status: Acute Assessment and Plan: colonoscopy
--- NOTE | 2025-10-29 09:24 | S_PTH ---
PATIENT: Madeline Puentes LOC: [facility]#:[id number] AGE/SX: 70/F ROOM: RE10/29/[address]: Isidro Mclaughlin MD : 1955 BED: DIS: 10/29/2025 SPEC #: [id number] RECD: 10/29/25 10:59 STATUS: MAGDA FERNÁNDEZ #: [id number] [place]: 10/29/25 09:[address]: Isidro Mclaughlin DEPT: [facility] Surgical RECD BY: Yumiko Guillory ENTERED: 10/29/25 11:00 SP TYPE: Surgical OTHR DR: Annie Pedraza APRN Tissues: A - Colon Polypectomy Procedures: Hematoxylin and Eosin Stain Gross and Microscopic Level 4
[2025-10-29 09:26] VITALS: BP 137/59; PULSE 79; RESP 20; O2SAT 96
[2025-10-29 09:36] VITALS: BP 130/70; PULSE 77; RESP 16; O2SAT 100
[2025-10-29 09:46] VITALS: BP 132/67; PULSE 71; RESP 18; O2SAT 100
== END 2025-10-29 10:04 | disposition home or self-care (01) ==
PROVIDERS: PCP Nurse Practitioner Family; Referring Provider Nurse Practitioner Family; Visit Provider Internal Medicine Gastroenterology
PROC: 0DJD8ZZ Inspection of Lower Intestinal Tract, Via Natural or Artificial Opening Endoscopic (ICD-10-PCS; CPT 45378; principal; 2025-10-29 09:30)
DX: Z12.11 Encounter for screening for malignant neoplasm of colon (principal); R19.5 Other fecal abnormalities; D12.2 Benign neoplasm of ascending colon; K57.30 Diverticulosis of large intestine without perforation or abscess without bleeding; K64.8 Other hemorrhoids; I12.9 Hypertensive chronic kidney disease with stage 1 through stage 4 chronic kidney disease, or unspecified chronic kidney disease; E11.22 Type 2 diabetes mellitus with diabetic chronic kidney disease; N18.30 Chronic kidney disease, stage 3 unspecified; Z87.891 Personal history of nicotine dependence
CPT/HCPCS: 45380; 82948; 88305; J2003; J2704; J7120